=== PATIENT | female | born 1935 | race Caucasian/White ===

== ENCOUNTER 2017-05-25 13:41 | Observation (INO) | payer OTHER, MEDICARE ==
[~2017-05-25] VITALS: Ht 152.4 cm; Wt 47.6 kg
--- NOTE | 2017-05-25 16:10 | ED GENERAL ADULT ---
History of Present Illness General Chief Complaint: General Adult Stated Complaint: SWOLLEN LEGS, PAINFUL URINATION Source: patient, family (DAUGHTER ) Exam Limitations: no limitations Vital Signs & Intake/Output Vital Signs & Intake/Output Vital Signs Date Time Temp Pulse Resp B/P B/P Pulse O2 O2 Flow FiO2 Mean Ox Delivery Rate 05/26 1455 97.0 86 18 139/81 96 Room Air Room Air 05/26 1100 98.2 76 18 160/82 98 Room Air 05/26 0911 98.6 80 18 151/69 04/ 0835 98.6 80 18 151/69 98 Room Air 05/26 0644 98.1 78 20 156/67 98 Room Air 05/26 0144 98.0 77 20 126/57 96 Room Air ED Intake and Output 05/26 0000 05/25 1200 Intake Total Output Total 550 Balance -550 Output, Urine 550 Patient 105 lb Weight Weight Reported by Patient Measurement Method Allergies Coded Allergies: acetaminophen (From PERCOCET) (FEELS FUNNY - PER PT IS UNSURE ABOUT APAP ) adhesive (SKIN RASH 05/25/17) oxycodone (From PERCOCET) (FEELS FUNNY 05/25/17) Triage Note: PT TO ED WITH C/O BURNING WITH URINATION, AND BILATERAL SWOLLEN LEGS "I DIDN'T TAKE MY LASIX FOR A COUPLE OF DAYS". PER DAUGHTER "I HAD HER TAKE THE LASIX THIS MORNING". Triage Nurses Notes Reviewed? yes Onset: Abrupt Duration: day(s): (3-4), constant, continues in ED, getting worse Timing: single episode today Injury Environment: home Severity: mild, moderate No Modifying Factors: none LMP (ages 10-50): post menopausal : No Patient currently breastfeeds: No HPI: 81-year-old female past medical history of hypertension, hyperlipidemia, hypothyroidism presents for evaluation of frequency urgency, dysuria and lower extremity edema. Patient reports that the urinary symptoms started 3 or 4 days ago and been getting worse. She states that she's been having difficulty getting to the bathroom in time. She states she's had multiple times where she has urinated in her pants her on the floor because of this. She states that it cano when she peas. Patient reports that because of the urinary symptoms she stopped taking her Lasix as it was making things worse this subsequent may caused lower extremity edema. Daughter reports that when she came to see her today she noted the edema and had her take 40 mg of Lasix today. Patient has no documented history of CHF. She denies any chest pain shortness of breath abdominal pain or back pain. She does note some subjective signs of fever. No nausea vomiting or diarrhea. Mental status is at baseline according to the daughter who is at bedside. (Ryan Reyez) Reconcile Medications Cholecalciferol (Vitamin D3) (Vitamin D) (Unknown Strength) TABLET (Unknown Dose) PO DAILY SUPPLEMENT (Reported) Citalopram Hydrobromide (Citalopram HBr) 20 MG TABLET 1 TAB PO DAILY MENTAL HEALTH (Reported) Furosemide 20 MG TABLET 1 TAB PO DAILY DIURETIC (Reported) Levothyroxine Sodium (Unknown Strength) TABLET (Unknown Dose) PO DAILY THYROID (Reported) Lisinopril 5 MG TABLET 1 TAB PO DAILY BP (Reported) Lorazepam 0.5 MG TABLET 1 TAB PO BIDP PRN ANXIETY (Reported) Meclizine HCl 25 MG TABLET 1 TAB PO DAILY VERTIGO (Reported) [Rolling walker] gait instability Simvastatin (Simvastatin*) 20 MG TABLET 1 TAB PO QPM CHOLESTEROL (Reported) Sulfamethoxazole/Trimethoprim (Bactrim Ds Tablet) 800 MG-160 MG TABLET 1 TAB PO BID uti (Arnold Ulrich MD) Past History Travel History Traveled to [place] past 21 day No Medical History Any Pertinent Medical History? see below for history Neurological: NONE EENT: NONE Cardiovascular: hypertension, hyperlipidemia Respiratory: NONE Gastrointestinal: NONE Hepatic: NONE Renal: NONE Musculoskeletal: NONE Psychiatric: NONE Endocrine: hypothyroidism Blood Disorders: NONE Cancer(s): NONE Influenza Vaccine: 12/25/12 Surgical History Surgical History: non-contributory Psychosocial History Services at Home None What is your primary language Mohawk Tobacco Use: Never used ETOH Use: denies use Illicit Drug Use: denies illicit drug use Family History Family History, If Any: SISTER MOTHER Relation not specified for: Cerebral hemorrhage FH: CABG (coronary artery bypass surgery) Hx Contributory? No (Ryan Reyez) Review of Systems Review of Systems Constitutional: Reports: no symptoms. EENTM: Reports: no symptoms. Respiratory: Reports: no symptoms. Cardiovascular: Reports: peripheral edema. GI: Reports: no symptoms. Genitourinary: Reports: see HPI, dysuria, frequency, urgency. Musculoskeletal: Reports: no symptoms. Skin: Reports: no symptoms. Neurological/Psychological: Reports: no symptoms. Hematologic/Endocrine: Reports: no symptoms. Immunologic/Allergic: Reports: no symptoms. All Other Systems: Reviewed and Negative (Ryan Reyez) Physical Exam Physical Exam General Appearance: well developed/nourished, no apparent distress, alert, awake , thin Head: atraumatic, normal appearance Eyes: Bilateral: normal appearance, PERRL, EOMI. Ears, Nose, Throat: normal pharynx, normal ENT inspection, hearing grossly normal Neck: normal inspection, supple, full range of motion Respiratory: normal breath sounds, chest non-tender, no respiratory distress, lungs clear Cardiovascular: regular rate/rhythm, normal peripheral pulses Peripheral Pulses: 2+ radial (R), 2+ radial (L) Gastrointestinal: soft, non-tender Back: normal inspection, normal range of motion, NO CVAT Extremities: normal range of motion, THERE IS BILATERAL 1+ LOWER EXTREMITY EDEMA. THE RIGHT APPEARS SLIGHTLY WORSE THAN THE LEFT NO ERYTHEMA OR DISCHARGE. pATIENT IS MOVING ALL EXTREMITIES EQUALLY Neurologic/Psych: no motor/sensory deficits, awake, alert, oriented x 3 Skin: intact, normal color, warm/dry Core Measures ACS in differential dx? No CVA/TIA Diagnosis: No Sepsis Present: No Sepsis Focused Exam Completed? No (Ryan Reyez) Progress Differential Diagnoses I considered the following diagnoses in my evaluation of the patient: [UTI, pyelonephritis, kidney stone, CHF exacerbation, DVT, dependent edema, sepsis, CAUDA EQUINA] Plan of Care: Orders Procedure Date/time Status Discharge Patient 05/26 1420 Active Theraputic Activities 15 Min 05/26 UNK Complete Gait Training, 15 Min 05/26 UNK Complete PT EVAL LOW COMPLEX 20 MIN 05/26 UNK Complete Patient seen and evaluated. She is reporting multiple urinary symptoms over the past several days. This caused her to stop taking her Lasix which caused her legs to swell. She currently is afebrile vital signs are stable she appears nontoxic. We'll check basic labs including urinalysis chest x-ray EKG. Patient received 40 mg of Lasix by mouth today before arrival. All blood work is within normal limits. Urine is showing some signs of infection culture ordered. No white count negative lactic acid. Chest x-ray does not show any signs pulmonary edema patient does not appear to be in CHF. Suspect likely etiology was patient has a UTI and stopped taking her Lasix due to increasing urinary symptoms which caused the lower extremity edema. Patient currently is having difficultLY ambulating. Patient is a fall risk. Patient will be held over in the emergency department for physical therapy in case management evaluation in the morning. We'll also check a lower shotty ultrasound in the morning. Additionally patient will receive IV ceftriaxone and a dose of [address] scan of the lumbar spine was obtained to assess for possible spinal cord injury causing the urinary incontinence. Patient remained emergency department observation. Case discussed with Dr. Lancaster he agrees. pt signed out to dr aguirre pending us and pt/case management in the am. Diagnostic Imaging: Viewed by Me: Radiology Read, CT Scan. Discussed w/RAD: Radiology Read, CT Scan. Radiology Impression: PATIENT: NAKIA SCHAEFFER PRESENT AGE: 81 PATIENT ACCOUNT NO: [id number] : 33 LOCATION: [facility] ORDERING PHYSICIAN: Jose Miguel Lancaster DO SERVICE DATE: 05/25/17 EXAM TYPE: CAT - CT LUMB SPINE WO IV CONTRAST EXAMINATION: CT LUMBAR SPINE WITHOUT CONTRAST CLINICAL INFORMATION: 81-year-old woman with urinary incontinence and back pain. COMPARISON: None TECHNIQUE: Helical non-contrast CT images were obtained through the lumbar spine and 1.25 and 2.5 mm axial reconstructions were reviewed along with sagittal and coronal MPRs. DLP: 147 mGy-cm FINDINGS: On sagittal reconstructions, there is slight anterolisthesis of L4 on L5 and of L5 on S1. There is also slight retrolisthesis of T12 on L1. Vertebral bodies are normal in height. Degenerative endplate remodeling with subchondral sclerosis and mild loss of normal disc space is noted at T11-T12, T12-L1, and L5-S1. Facet arthrosis is worse in the lower lumbar spine. Extensive atherosclerotic plaquing is seen throughout the abdominal aorta. T12-L1: Disc osteophyte complex slightly effaces the ventral CSF space. The canal remains patent. There is mild to moderate narrowing of the right neural foramen. L1-L2, L2-L3: The disc contours are normal, and the canal and foramina remain nonstenotic. L3-L4: A disc bulge is eccentric to the right and there is mild to moderate facet arthrosis. In conjunction with ligamentous hypertrophy, findings lead to mild canal stenosis and mild narrowing of the neural foramina, right greater than left. L4-L5: The disc is uncovered with a superimposed diffuse bulge. There is moderate to severe facet arthrosis. The canal remains patent. There is mild narrowing of the right neural foramen and lateral recess. L5-S1: The disc is uncovered with a superimposed diffuse bulge. There is marked facet arthrosis. The canal remains patent. There is moderate narrowing of the neural foramina. IMPRESSION: Moderate multilevel lumbar spondylosis. No severe canal or foraminal stenosis is noted at any level. DICTATED BY: Rita Pool MD DATE/TIME DICTATED:05/25/171932 DENTAL ASSISTING INSTRUCTOR:TOMMY DATE/TIME TRANSCRIBED:05/25/171932 CONFIDENTIAL, DO NOT COPY WITHOUT APPROPRIATE AUTHORIZATION. <Electronically signed in Other Vendor System> SIGNED BY: Rita Pool MD 05/25/171940 CXR Impression: PATIENT: NAKIA SCHAEFFER PRESENT AGE: 81 PATIENT ACCOUNT NO: [id number] : 33 LOCATION: [facility] ORDERING PHYSICIAN: Ryna GERMAIN SERVICE DATE: 05/25/17 EXAM TYPE: RAD - XRY-PORTABLE CHEST XRAY EXAMINATION: XR CHEST PORTABLE CLINICAL INFORMATION: Pneumonia, congestive heart failure. COMPARISON: CT chest 09/02/2011. TECHNIQUE: Portable frontal view of the chest was obtained. FINDINGS: Rotated positioning. Mild cardiomegaly. Calcification of the aortic arch. There is mild prominence of the interstitium. Mild perihilar bronchial wall thickening. No focal consolidation, effusion, edema or pneumothorax. No acute osseous abnormality. IMPRESSION: Nonspecific mild perihilar bronchial wall thickening, which can be seen with reactive changes, bronchitis. No acute findings otherwise. DICTATED BY: Edmond Arevalo MD DATE/TIME DICTATED:05/25/171729 DENTAL ASSISTING INSTRUCTOR:TOMMY DATE/ TIME TRANSCRIBED:05/25/171729 CONFIDENTIAL, DO NOT COPY WITHOUT APPROPRIATE AUTHORIZATION. <Electronically signed in Other Vendor System> Initial ED EKG: NORMAL SINUS RHYTHM, BORDERLINE RIGHT AXIS DEVIATION, ABNORMAL t WAVES INFERIOR LEADS Prior EKG: unchanged Hand-Off Endorsed To: Derek SHELLEY,Manish Stewart Endorsed Time: 52 Pending: consult, ultrasound (Ryan Reyez) Diagnostic Imaging: Viewed by Me: Ultrasound. Discussed w/RAD: Ultrasound. Radiology Impression: There is no sonographic evidence of deep venous thrombosis involving the lower extremities. (Arnold Ulrich MD) Departure Departure Condition: Stable Referrals: Michell Snyder MD (PCP/Family) Departure Forms: Customer Survey General Discharge Information (Ryan Reyez) Departure Clinical Impression Primary Impression: UTI (urinary tract infection) Qualifiers: Urinary tract infection type: acute cystitis Hematuria presence: without hematuria Qualified Code: N30.00 - Acute cystitis without hematuria Secondary Impressions: Gait instability, Lower extremity edema (Jose Miguel Lancaster DO) Departure Disposition: HOME OR SELF CARE Prescriptions: Current Visit Scripts [Rolling walker] #1 Sulfamethoxazole/Trimethoprim (Bactrim Ds Tablet) 1 TAB PO BID #14 TAB (Arnold Ulrich MD) Critical Care Note Critical Care Note Critical Care Time: non-applicable (Ryan Reyez) ED Attending Observation Initial Observation Note: I have seen and personally examined NAKIA SCHAEFFER on 05/25/17 at 1619. I agree with the current emergency department documentation. The disposition (admission or discharge) is uncertain at this time, she needs a period of observation for the following reason(s): The ED Nurse caring for this patient has been personally informed as to what the patient is being observed for. (Ryan Reyez) Initial Observation Note: I have seen and personally examined NAKIA SCHAEFFER on 05/25/17 at 1843. I agree with the current emergency department documentation. The disposition (admission or discharge) is uncertain at this time, she needs a period of observation for the following reason(s): [The patient is in need of observation for PT consultation, lower extremity Doppler, case management] The ED Nurse caring for this patient has been personally informed as to what the patient is being observed for. The patient will be signed out to Dr. Aguirre at 7 PM (Jose Miguel Lancaster DO) Observation Re-Evaluation: I have reevaluated NAKIA SCHAEFFER on 05/26/17 at 0328. The physical findings that support the continued need to observe this patient include ... resting comfortably... pt to be re-evaluated to consider dispo. pt signed out to dr. ulrich (05.26.17), 7am. (Manish Aguirre MD) Observation Discharge: I have reevaluated NAKIA SCHAEFFER on 05/26/17 at 1700. The patient is: (x): Stable for discharge (): To be admitted to Nursing Floor (): To be placed in Observation on Nursing Floor (): For transfer to other facility The patient was being observed for dependent edema with gait instability and UTI As a result of that observation, I have determined safe for discharge. (Arnold Ulrich MD) The patient will be signed out to Dr. Aguirre at 7 PM (Jose Miguel Lancaster DO) Observation Re-Evaluation: I have reevaluated NAKIA SCHAEFFER on 05/26/17 at 0328. The physical findings that support the continued need to observe this patient include ... resting comfortably... pt to be re-evaluated to consider dispo. pt signed out to dr. ulrich (05.26.17), 7am. (Manish Aguirre MD) Observation Discharge: I have reevaluated NAKIA SCHAEFFER on 05/26/17 at 1700. The patient is: (x): Stable for discharge (): To be admitted to Nursing Floor (): To be placed in Observation on Nursing Floor (): For transfer to other facility The patient was being observed for dependent edema with gait instability and UTI As a result of that observation, I have determined safe for discharge. (Arnold Ulrich MD) (Ryan Reyez) ED Attending Observation Initial Observation Note: I have seen and personally examined NAKIA SCHAEFFER on 05/25/17 at 1619. I agree with the current emergency department documentation. The disposition (admission or discharge) is uncertain at this time, she needs a period of observation for the following reason(s): The ED Nurse caring for this patient has been personally informed as to what the patient is being observed for. (Ryan Reyez) Initial Observation Note: I have seen and personally examined NAKIA SCHAEFFER on 05/25/17 at 1843. I agree with the current emergency department documentation. The disposition (admission or discharge) is uncertain at this time, she needs a period of observation for the following reason(s): [The patient is in need of observation for PT consultation, lower extremity Doppler, case management] The ED Nurse caring for this patient has been personally informed as to what the patient is being observed for. The patient will be signed out to Dr. Aguirre at 7 PM (Jose Miguel Lancaster DO) Observation Re-Evaluation: I have reevaluated NAKIA SCHAEFFER on 05/26/17 at 0328. The physical findings that support the continued need to observe this patient include ... resting comfortably... pt to be re-evaluated to consider dispo. pt signed out to dr. ulrich (4.04.13), 7am. (Derek SHELLEY,Manish Stewart)
[2017-05-25 16:15] LABS: ABSOLUTE BASOPHIL COUNT 0.1 /CUMM (0.0-0.2); ABSOLUTE EOSINOPHIL COUNT 0.1 /CUMM (0.0-0.7); ABSOLUTE GRANULOCYTE CT 3.7 /CUMM (1.4-6.5); ABSOLUTE LYMPH COUNT 1.6 /CUMM (1.2-3.4); ABSOLUTE MONOCYTE COUNT 0.7 /CUMM (0.10-0.60); BASOPHIL % 1.2 % (0.0-2.0); EOSINOPHIL % 1.3 % (0-5); HEMATOCRIT 36.5 % (37-47); MEAN CORPUSCULAR HGB 28.2 PG (27.0-31.0); MEAN CORPUSCULAR HGB CONC 32.1 G/DL (33.0-37.0); MEAN CORPUSCULAR VOLUME 87.7 FL (81.0-99.0); MEAN PLATELET VOLUME 8.4 FL (7.4-10.4); PLATELET COUNT 315 /CUMM (130-400); RBC DISTRIBUTION WIDTH 15.3 % (11.5-14.5); RED BLOOD CELL CT 4.17 /CUMM (4.20-5.40); WHITE BLOOD CELL COUNT 6.1 /CUMM (4.8-10.8)
[2017-05-25] MEDS ORDERED: FUROSEMIDE20 M1 PO (16:18)
[2017-05-25] MEDS ORDERED: MECLIZINE HCL25 MG PO (16:19)
[2017-05-25] MEDS ORDERED: LORAZEPAM0.5 M1 PO (16:19)
[2017-05-25] MEDS ORDERED: LISINOPRIL5 M1 PO (16:19)
[2017-05-25] MEDS ORDERED: LEVOTHYROXINE75 MCG PO (16:19)
[2017-05-25] MEDS ORDERED: VITAMIN D2000 UNI1 PO (16:20)
[2017-05-25] MEDS ORDERED: CITALOPRAM HBR20 MG PO (16:20)
[2017-05-25] MEDS ORDERED: SIMVASTATIN20 M2 PO (16:20)
--- NOTE | 2017-05-25 17:57 | RADIOLOGY REPORT ---
EXAMINATION: XR CHEST PORTABLE CLINICAL INFORMATION: Pneumonia, congestive heart failure. COMPARISON: CT chest 09/02/2011. TECHNIQUE: Portable frontal view of the chest was obtained. FINDINGS: Rotated positioning. Mild cardiomegaly. Calcification of the aortic arch. There is mild prominence of the interstitium. Mild perihilar bronchial wall thickening. No focal consolidation, effusion, edema or pneumothorax. No acute osseous abnormality. IMPRESSION: Nonspecific mild perihilar bronchial wall thickening, which can be seen with reactive changes, bronchitis. No acute findings otherwise.
--- NOTE | 2017-05-25 19:41 | CT SCAN REPORT ---
EXAMINATION: CT LUMBAR SPINE WITHOUT CONTRAST CLINICAL INFORMATION: 81-year-old woman with urinary incontinence and back pain. COMPARISON: None TECHNIQUE: Helical non-contrast CT images were obtained through the lumbar spine and 1.25 and 2.5 mm axial reconstructions were reviewed along with sagittal and coronal MPRs. DLP: 147 mGy-cm FINDINGS: On sagittal reconstructions, there is slight anterolisthesis of L4 on L5 and of L5 on S1. There is also slight retrolisthesis of T12 on L1. Vertebral bodies are normal in height. Degenerative endplate remodeling with subchondral sclerosis and mild loss of normal disc space is noted at T11-T12, T12-L1, and L5-S1. Facet arthrosis is worse in the lower lumbar spine. Extensive atherosclerotic plaquing is seen throughout the abdominal aorta. T12-L1: Disc osteophyte complex slightly effaces the ventral CSF space. The canal remains patent. There is mild to moderate narrowing of the right neural foramen. L1-L2, L2-L3: The disc contours are normal, and the canal and foramina remain nonstenotic. L3-L4: A disc bulge is eccentric to the right and there is mild to moderate facet arthrosis. In conjunction with ligamentous hypertrophy, findings lead to mild canal stenosis and mild narrowing of the neural foramina, right greater than left. L4-L5: The disc is uncovered with a superimposed diffuse bulge. There is moderate to severe facet arthrosis. The canal remains patent. There is mild narrowing of the right neural foramen and lateral recess. L5-S1: The disc is uncovered with a superimposed diffuse bulge. There is marked facet arthrosis. The canal remains patent. There is moderate narrowing of the neural foramina. IMPRESSION: Moderate multilevel lumbar spondylosis. No severe canal or foraminal stenosis is noted at any level.
[2017-05-26] MEDS ORDERED: Rolling walker (08:27)
--- NOTE | 2017-05-26 10:18 | ULTRASOUND REPORT ---
EXAMINATION: US TRIPLEX OF LOWER EXTREMITIES, BILATERAL CLINICAL INFORMATION: Evaluate for deep vein thrombosis COMPARISON: None TECHNIQUE: Color-flow triplex imaging with spectral analysis and compression Doppler were performed on the lower extremities. FINDINGS: Respiratory variation, normal compression and augmented flow are noted throughout the lower extremities. The visualized common femoral vein, superficial femoral vein, profunda femoral vein, popliteal vein and midcalf peroneal and posterior tibial venous segments show no evidence of deep venous thrombosis. There is no Hanson's cyst. IMPRESSION: There is no sonographic evidence of deep venous thrombosis involving the lower extremities.
[2017-05-26] MEDS ORDERED: BACTRIM DS TAB1 EACH PO (12:55)
[2017-05-26 14:55] VITALS: BP 139/81
== END 2017-05-26 15:13 ==
LOC: ERH 13:41 → ERHI 18:41
PROVIDERS: Physician Assistant Medical
DX: N30.00 Acute cystitis without hematuria (principal); N95.9 Unspecified menopausal and perimenopausal disorder; I10 Essential (primary) hypertension; E78.5 Hyperlipidemia, unspecified; E03.9 Hypothyroidism, unspecified; R60.0 Localized edema; R26.9 Unspecified abnormalities of gait and mobility
CPT/HCPCS: 6090; 71045; 81001; 87086; 93005; 93010; 93970; 96374; 96375; 97116-GP; 97161-GP; 97530-GP; G0378; G8978-GP; G8979-GP; J0696; J1940

== ENCOUNTER 2017-06-27 12:01 | Inpatient (IN) | payer OTHER, MEDICARE ==
[~2017-06-27] VITALS: Ht 147.3 cm; Wt 39.9 kg
[~2017-06-27 12:01] MED LIST: BACTRIM DS TAB1 EACH PO; CITALOPRAM HBR20 MG PO; FUROSEMIDE20 M1 PO; LEVOXYL75 MCG PO; LISINOPRIL5 M1 PO; LORAZEPAM0.5 M1 PO; MECLIZINE HCL25 MG PO; Rolling walker; SIMVASTATIN20 M2 PO; VITAMIN D2000 UNI1 PO
--- NOTE | 2017-06-27 12:27 | ED GI/GU/ABDOMINAL COMPLAINT ---
History of Present Illness General Chief Complaint: General Adult Stated Complaint: ?UTI Source: patient, family, old records Exam Limitations: no limitations Allergies Coded Allergies: acetaminophen (From PERCOCET) (FEELS FUNNY - PER PT IS UNSURE ABOUT APAP ) adhesive (SKIN RASH 05/25/17) oxycodone (From PERCOCET) (FEELS FUNNY 05/25/17) Reconcile Medications Cholecalciferol (Vitamin D3) (Vitamin D) (Unknown Strength) TABLET (Unknown Dose) PO DAILY SUPPLEMENT (Reported) Citalopram Hydrobromide (Citalopram HBr) 20 MG TABLET 1 TAB PO DAILY MENTAL HEALTH (Reported) Furosemide 20 MG TABLET 1 TAB PO DAILY DIURETIC (Reported) Levothyroxine Sodium (Unknown Strength) TABLET (Unknown Dose) PO DAILY THYROID (Reported) Lisinopril 5 MG TABLET 1 TAB PO DAILY BP (Reported) Lorazepam 0.5 MG TABLET 1 TAB PO BIDP PRN ANXIETY (Reported) Meclizine HCl 25 MG TABLET 1 TAB PO DAILY VERTIGO (Reported) [Rolling walker] gait instability Simvastatin (Simvastatin*) 20 MG TABLET 1 TAB PO QPM CHOLESTEROL (Reported) Sulfamethoxazole/Trimethoprim (Bactrim Ds Tablet) 800 MG-160 MG TABLET 1 TAB PO BID uti Triage Note: PT BIBA FROM HOME WITH C/O POSSIBLE UTI. PT STATES SHE WAS IN ED AROUND [facility] AND WAS DX WITH UTI AND DC AFTER 1 DAY WITH ABX FOR HOME. APPROXIMATELY 1 WEEK AGO, PT HAD LAB WORK DONE AND WAS TOLD SHE HAS NO UTI. HOWEVER, PT C/O CLOUDY URINE. PT'S AIDE STATES THE URINE IS ALSO STRONG-SMELLING, WHICH PT CANNOT VERIFY. PT ARRIVES A&O, EDEMA TO BLE WHICH SHE SAYS IS NEW, BUT SHE TAKES LASIX. PT ENDORSES WEAKNESS "STARTING YESTERDAY", BUT ALSO STATES SHE HAS BEEN WEAK AND USING A CANE SINCE HER HOSPITALIZATION IN MAY Triage Nurses Notes Reviewed? yes ? N Is pt currently ? No Onset: Gradual Duration: week(s): Timing: recent history Quality/Severity: moderate HPI: 81YO FEMALE with hx hypertension, hyperlipidemia, hypothyroidism BIBA to ED for possible UTI. Patient states that she has had increased urinary frequency and intermittent dysuria since around [facility] time. Patient was previously diagnosed with the UTI, completed antibiotics have her symptoms persisted. Patient also reports pedal edema, recent increasing in her swelling bilaterally. This swelling affects the patient's walking at times. The patient's PCP has prescribed lasix, they recommended she increase her dose however this also affects her urinary frequency. Patient is currently going through work up with her CLINICAL PHARMACY MANAGER for her and prolapse. Daughter is very concerned because the patient lives at home alone, has nursing and physical therapy present for/7 days per week for a few hours. Patient has increasing weakness and daughter is worried about her following. Patient currently uses a cane for ambulation of her daughter has noticed that her gait has changed, she now shuffles more when she walks. Daughter states that patient is unable to get dressed on arrival at times and requires assistance due to her weakness. Patient denies dyspnea, abdominal pain, vomiting, fevers, chills. (Kate GERMAIN,Alysha Mcallister) Vital Signs & Intake/Output Vital Signs & Intake/Output Vital Signs Date Time Temp Pulse Resp B/P B/P Pulse O2 O2 Flow FiO2 Mean Ox Delivery Rate 06/27 1730 98.8 84 18 121/59 97 Room Air Room Air 05/ 1503 98.8 82 18 159/70 100 Room Air Room Air 05/ 1445 98.4 78 16 136/71 97 Room Air 05/04 1217 Room Air 05/04 1207 98.2 82 16 154/68 96 Room Air (Christy SHELLEY,Jose Miguel Savage) Past History Medical History Any Pertinent Medical History? see below for history Neurological: NONE EENT: NONE Cardiovascular: hypertension, hyperlipidemia Respiratory: NONE Gastrointestinal: NONE Hepatic: NONE Renal: NONE Musculoskeletal: NONE Psychiatric: NONE Endocrine: hypothyroidism Blood Disorders: NONE Cancer(s): NONE Surgical History Surgical History: non-contributory Psychosocial History Services at Home None What is your primary language Wallisian Family History Family History, If Any: SISTER MOTHER Relation not specified for: Cerebral hemorrhage FH: CABG (coronary artery bypass surgery) Hx Contributory? No (Alysha Linares) Review of Systems Review of Systems Constitutional: Reports: see HPI. EENTM: Reports: no symptoms. Respiratory: Reports: no symptoms. Cardiovascular: Reports: see HPI. GI: Reports: no symptoms. Genitourinary: Reports: see HPI. Musculoskeletal: Reports: see HPI. Skin: Reports: no symptoms. Neurological/Psychological: Reports: no symptoms. Hematologic/Endocrine: Reports: no symptoms. Immunologic/Allergic: Reports: no symptoms. All Other Systems: Reviewed and Negative (Kate GERMAIN,Alyhsa Mcallister) Physical Exam Physical Exam General Appearance: well developed/nourished, no apparent distress, alert, awake Head: atraumatic, normal appearance Eyes: Bilateral: normal appearance. Ears, Nose, Throat, Mouth: hearing grossly normal Neck: normal inspection, supple, full range of motion Respiratory: normal breath sounds, no respiratory distress, lungs clear Cardiovascular: regular rate/rhythm Gastrointestinal: normal bowel sounds, soft, non-tender, no organomegaly Back: normal inspection, normal range of motion Extremities: 1+ pitting edema bilaterally Neurologic/Psych: awake, alert, oriented x 3 Skin: intact, normal color, warm/dry Core Measures ACS in differential dx? No Sepsis Present: No Sepsis Focused Exam Completed? No (Kate GERMAIN,Alysha Mcallister) Progress Differential Diagnosis: UTI/pyelo, CHF, dependent edema, gait instability, electrolyte abnormality, anemia Diagnostic Imaging: Viewed by Me: Radiology Read. Discussed w/RAD: Radiology Read. Radiology Impression: PATIENT: NAKIA SCHAEFFER PRESENT AGE: 81 PATIENT ACCOUNT NO: [id number] : 33 LOCATION: [facility] ORDERING PHYSICIAN: Alysha GERMAIN SERVICE DATE: 06/27/17 EXAM TYPE: RAD - XRY-CHEST XRAY, TWO VIEWS EXAMINATION: XR CHEST CLINICAL INFORMATION : New pedal edema. COMPARISON: Chest radiograph 05/25/2017. TECHNIQUE: 3 views of the chest were obtained. FINDINGS: The lungs are clear without consolidation, edema, or effusion. There is no pneumothorax. The cardiomediastinal silhouette appears normal. The thoracic aorta is calcified. There are multilevel degenerative changes in the thoracic and lumbar spine. IMPRESSION: No active disease in the chest. DICTATED BY: Tayo Mcneil MD DATE/TIME DICTATED:1304 FELL CUTTER:TOMMY DATE/TIME TRANSCRIBED:06/27/171304 CONFIDENTIAL, DO NOT COPY WITHOUT APPROPRIATE AUTHORIZATION. <Electronically signed in Other Vendor System> SIGNED BY: Tayo Mcneil MD 06/27/17 1312 Initial ED EKG: sinus rhythm @81bpm, nonspecific ST changes Prior EKG: unchanged (05/25/17) (Kate GERMAIN,Alysha Mcallister) Plan of Care: Orders Procedure Date/time Status Regular Diet 06/28 B Active Regular Diet 06/27 D Complete Pathway - chart 06/27 174 Active House Staff 06/27 1744 Active Patient Data 06/27 174 Active Lab Add-on Test 06/27 174 Active Patient Data 06/27 1730 Active Admit to inpatient 06/27 1710 Active VIT D 25 HYDROXY 06/27 1340 Active TSH REFLEX 06/27 1340 Active TROPONIN LEVEL 06/27 1340 Active FOLIC ACID 06/27 1340 Active VITAMIN B12 06/27 1340 Active Straight Cath 06/27 1301 Active EKG 06/27 1301 Active CULTURE,URINE 06/27 1223 Active URINALYSIS 06/27 1223 Complete COMPREHENSIVE METABOLIC PANEL 06/27 1223 Active CBC WITHOUT DIFFERENTIAL 06/27 1223 Complete B-TYPE NATRIURETIC PEP (BNP) 06/27 1223 Active VTE Mechanical Prophylaxis 06/27 UNK Active Activity/Ambulation 06/27 UNK Active Current Medications Sig/Heather Start time Last Medication Dose Stop Time Status Admin Atorvastatin Calcium 10 MG 1700 06/28 1700 UNVr (Lipitor) Cholecalciferol 1,000 IU DAILY 06/28 0900 UNVr (Vitamin D) Citalopram 20 MG DAILY 06/28 0900 UNVr Hydrobromide (Celexa) Enoxaparin Sodium 40 MG DAILY 06/28 0900 UNVr (Lovenox) Furosemide 20 MG DAILY 06/28 0900 UNVr (Lasix) Lisinopril 5 MG DAILY 06/28 0900 UNVr (Prinivil) Acetaminophen 650 MG Q6P PRN 06/27 1744 UNVr (Tylenol) Ibuprofen 600 MG Q6P PRN 06/27 174 UNVr (Motrin) Lorazepam 0.5 MG .[BIDP] PRN 06/27 174 UNVr (Ativan) 07/05 1743 Oxycodone/ 2 TAB Q6P PRN 06/27 174 UNVr Acetaminophen (Percocet) Laboratory Tests 06/27/17 1445: Urinalysis MOD H, Urine Color YEL, Urine Clarity HAZY H, Urine pH 7.5, Ur Specific [place] 1.010, Urine Protein NEG, Urine Ketones NEG, Urine Nitrite NEG, Urine Bilirubin NEG, Urine Urobilinogen 0.2, Ur Leukocyte Esterase NEG, Ur Microscopic SEDIMENT EXAMINED, Urine RBC RARE, Ur Epithelial Cells RARE, Urine Bacteria RARE H, Urine Mucus FEW, Urine Hemoglobin NEG, Urine Glucose NEG 06/27/17 1340: Anion Gap 9, Estimated GFR 53 L, BUN/Creatinine Ratio 26.0 H, Glucose 91, Calcium 9.8, Total Bilirubin 0.5, AST 27, ALT 23, Alkaline Phosphatase 67, Troponin I < 0.01, Kcy-T-Ltptouzjinj Pept 58.0, Total Protein 6.6, Albumin 3.9, Globulin 2.7, Albumin/Globulin Ratio 1.4, Vitamin B12 Pending, 25-OH Vitamin D Total Pending, Folate Pending, TSH &T3 &Free T4 Intrp Pending, CBC w Diff NO MAN DIFF REQ, RBC 3.89 L, MCV 85.8, MCH 29.0, MCHC 33.9, RDW 14.9 H, MPV 8.2, Gran % 65.4, Lymphocytes % 24.2, Monocytes % 7.7, Eosinophils % 1.7, Basophils % 1.0, Absolute Granulocytes 3.8, Absolute Lymphocytes 1.4, Absolute Monocytes 0.4, Absolute Eosinophils 0.1, Absolute Basophils 0.1 06/27/17 1301: Troponin I Cancelled Microbiology 06/27 1445 URINE ROUT: Urine Culture - RECD Patients labs are stable, no UTI. CXR is WNL. 3:35 PM - patient was ambulated by CLEMENTE Juares. Patient displayed shuffling gait, weakness, could not get out of bed without assistance, ambulatory using walker with distance by [facility]. She could not return to bed without assistance, required to be lifted and placed in bed. Discussed with case mgmt, patient requires 3 midnight stay prior to rehab placement. Spoke with hospitalist, Dr. Soni regarding this patient's general medicine admission. (Kate GERMAIN,Alysha Mcallister) (Christy SHELLEY,Jose Miguel Savage) Departure Departure Disposition: STILL A PATIENT Condition: Stable Clinical Impression Primary Impression: Weakness Secondary Impressions: Gait instability, Pedal edema Referrals: Michell Snyder MD (PCP/Family) Departure Forms: Customer Survey General Discharge Information Admission Note Spoke With: Toni Soni MD Documentation of Exam: Documentation of any treatments & extenuating circumstances including Concerns Regarding Discharge (functional status, medication knowledge or non-compliance, living conditions, etc.) that warrant an admission rather than observation: [ Patient has weakness and gait instability, she is up below her baseline, unable to perform functional ADLs requiring case management consult, physical therapy consult, short-term rehabilitation with 3 midnight stay prior to rehabilitation placement.] (Kate GERMAIN,Alysha Mcallister) PA/GRAINING OPERATOR Co-Sign Statement Statement: ED Attending supervision documentation- [X] I saw and evaluated the patient. I have also reviewed all the pertinent lab results and diagnostic results. I agree with the findings and the plan of care as documented in the PA's/GRAINING OPERATOR's documentation. Patient presents for evaluation of a possible urinary tract infection similar to the prior UTI resulting in her hospitalization. Physical examination reveals a comfortable appearing woman in no acute respiratory distress. [] I have reviewed the ED Record and agree with the PA's/GRAINING OPERATOR's documentation. [] Additions or exceptions (if any) to the PAs/GRAINING OPERATOR's note and plan are summarized below: [] (Christy SHELLEY,Jose Miguel Savage)
--- NOTE | 2017-06-27 13:12 | RADIOLOGY REPORT ---
EXAMINATION: XR CHEST CLINICAL INFORMATION: New pedal edema. COMPARISON: Chest radiograph 05/25/2017. TECHNIQUE: 3 views of the chest were obtained. FINDINGS: The lungs are clear without consolidation, edema, or effusion. There is no pneumothorax. The cardiomediastinal silhouette appears normal. The thoracic aorta is calcified. There are multilevel degenerative changes in the thoracic and lumbar spine. IMPRESSION: No active disease in the chest.
[2017-06-27 13:49] LABS: ABSOLUTE BASOPHIL COUNT 0.1 /CUMM (0.0-0.2); ABSOLUTE EOSINOPHIL COUNT 0.1 /CUMM (0.0-0.7); ABSOLUTE GRANULOCYTE CT 3.8 /CUMM (1.4-6.5); ABSOLUTE LYMPH COUNT 1.4 /CUMM (1.2-3.4); ABSOLUTE MONOCYTE COUNT 0.4 /CUMM (0.10-0.60); EOSINOPHIL % 1.7 % (0-5); GRANULOCYTE % 65.4 % (42.2-75.2); HEMATOCRIT 33.4 % (37-47); MEAN CORPUSCULAR HGB CONC 33.9 G/DL (33.0-37.0); MEAN CORPUSCULAR VOLUME 85.8 FL (81.0-99.0); MEAN PLATELET VOLUME 8.2 FL (7.4-10.4); PLATELET COUNT 244 /CUMM (130-400); RBC DISTRIBUTION WIDTH 14.9 % (11.5-14.5); RED BLOOD CELL CT 3.89 /CUMM (4.20-5.40); WHITE BLOOD CELL COUNT 5.8 /CUMM (4.8-10.8)
--- NOTE | 2017-06-27 17:41 | History & Physical ---
Arie SHELLEY,Wilbur 06/27/17 8599: General Information and HPI MD Statement: I have seen and personally examined NAKIA SCHAEFFER and documented this H&P. The patient is a 81 year old F who presented with a patient stated chief complaint of [weakness]. Source of Information: patient, family Exam Limitations: no limitations History of Present Illness: This is a 81 yo female with PMH of hyperlipidemia, hypertension, anxiety, depression, hypothyroidism, who was sent in by her home nurse for increased weakness. Pt states that she has been progressively weak for past several months , but it seemed to get worse about one month ago. She came to at that time and was treated for UTI. Since then she has needed to ambulate with a cane. Over the past month she has even more weak, until today she could not lift herself out of her couch. She states that she woke up this AM and felt "off." She was unable to do her routine chores around the house. She had to crawl on hands and knees to get down from the couch to feed her dog. She endorses a subjective fever, but did not measure a temperature. She denies any nausea, vomiting, chest pain, palpitations, abdominal pain, dysuria, melena, hematochezia, or headache. She endorses fatigue, decreased appetite, worsening lower extremity edema, and worsening depression due to her progressive debilitation. No SI/HI. She has had similar complaint previously but weakness was attributed to her anxiety. She has home PT and nursing. Never smoker, no etoh or drugs. Uses a cane for ambulation. Allergies/Medications Allergies: Coded Allergies: acetaminophen (From PERCOCET) (FEELS FUNNY - PER PT IS UNSURE ABOUT APAP ) adhesive (SKIN RASH 05/25/17) oxycodone (From PERCOCET) (FEELS FUNNY 05/25/17) Home Med list Cholecalciferol (Vitamin D3) (Vitamin D) (Unknown Strength) TABLET (Unknown Dose) PO DAILY SUPPLEMENT (Reported) Citalopram Hydrobromide (Citalopram HBr) 20 MG TABLET 1 TAB PO DAILY MENTAL HEALTH (Reported) Furosemide 20 MG TABLET 1 TAB PO DAILY DIURETIC (Reported) Levothyroxine Sodium (Levoxyl) 75 MCG TABLET 1 TAB PO DAILY hypothyroid ( Reported) Lisinopril 5 MG TABLET 1 TAB PO DAILY BP (Reported) Lorazepam 0.5 MG TABLET 1 TAB PO BIDP PRN ANXIETY (Reported) Meclizine HCl 25 MG TABLET 1 TAB PO DAILY VERTIGO (Reported) [Rolling walker] gait instability Simvastatin (Simvastatin*) 20 MG TABLET 1 TAB PO QPM CHOLESTEROL (Reported) Sulfamethoxazole/Trimethoprim (Bactrim Ds Tablet) 800 MG-160 MG TABLET 1 TAB PO BID uti Compliance With Home Meds: GOOD Past History Travel History Traveled to [place] past 21 day No Medical History Neurological: NONE EENT: NONE Cardiovascular: hypertension, hyperlipidemia Respiratory: NONE Gastrointestinal: NONE Hepatic: NONE Renal: NONE Musculoskeletal: NONE Psychiatric: NONE Endocrine: hypothyroidism Blood Disorders: NONE Cancer(s): NONE Surgical History Surgical History: non-contributory Past Family/Social History Family History Relations & Conditions if any SISTER MOTHER Relation not specified for: Cerebral hemorrhage FH: CABG (coronary artery bypass surgery) Psychosocial History Services at Home: None ETOH Use: denies use Review of Systems Review of Systems Constitutional: Reports: see HPI. Exam & Diagnostic Data Last 24 Hrs of Vital Signs/I&O Vital Signs Date Time Temp Pulse Resp B/P B/P Pulse O2 O2 Flow FiO2 Mean Ox Delivery Rate 06/27 1730 98.8 84 18 121/59 97 Room Air Room Air / 1503 98.8 82 18 159/70 100 Room Air Room Air 05/ 1445 98.4 78 16 136/71 97 Room Air / 1217 Room Air / 1207 98.2 82 16 154/68 96 Room Air Intake & Output 06/27 1600 / 0800 05/ 0000 Intake Total Output Total Balance Patient 45.359 kg Weight Weight Reported by Patient Measurement Method Physical Exam General Appearance Alert, Oriented X3, Cooperative, No Acute Distress HEENT Atraumatic, PERRLA, EOMI, Mucous Membr. moist/pink Neck Supple Cardiovascular Normal S1, Normal S2, Upon auscultation pt has some intermittent dropped beats, but otherwise regular. She has a systoli murmur 2/6 at RUSB that radiates to carotids and she has a louder 3/6 murmur at apex that radiates to axilla. Lungs Normal Air Movement Abdomen Soft, No Tenderness Neurological Normal Speech, Sensation Intact, Cranial Nerves 3-12 NL Extremities 3+ EDEMA IN BILAT LE Assessment/Plan Assessment: This is an 81 yo female w/ PMH of hypothyroidism and anxiety who comes in for CC of progressive weakness and worsening lower extremity edema. Her BNP is 58 which suggests against heartfailure but given physical exam findings for cardiac murmurs there is possibility for valvular pathology leading to her presentation. In ED "Patient displayed shuffling gait, weakness, could not get out of bed without assistance, ambulatory using walker with distance by [facility]. She could not return to bed without assistance, required to be lifted and placed in bed." She is unsafe at home as she is unable to meet basic needs so will admit pt for routine work up of weakness. Pertinent labs: Vitals: 98.2, 82, 16, 154/68, 96. UA: Negative ketone, negative nitrite, negative leukocyte esterase, rare urine bacteria CBC: White count 5.8, hemoglobin 11.3, hematocrit 33.4, platelet 144 BEP: Sodium 139, potassium 4.4, chloride 100, bicarbonate 30, BUN 26, creatinine 1.0 Glucose 91 negative LFTs Negative troponin Chest x-ray shows clear lungs without consolidation, edema, or effusion. No pneumothorax. Aorta is calcified and multiple degenerative changes and thoracic lumbar spine are seen. PLAN Weakness: * Check B12, folate and thyroid function * Echocardiogram Anemia: Hb 11.3. Denies any bleeding. * Iron studies Hypothyroidism * Continue 75mcg levothyroxine Hypertension * Continue lisinopril 5 mg by mouth daily * Continue furosemide 20 mg daily Depression and anxiety: * Continue citalopram 20 mg daily * Continue lorazepam 0.5 mg by mouth daily Hyperlipidemia * Continue statin DNR/DNI REG DIET CHEM PPX As Ranked By This Provider Problem List: 1. Generalized weakness Core Measures/Misc (11/10) Acute Coronary Syndrome ACS Diagnosis: No Congestive Heart Failure Congestive Heart Failure Diagnosis No Cerebrovascular Accident CVA/TIA Diagnosis: No VTE (View Protocol) VTE Risk Factors Acute Medical Illness No Mechanical VTE Prophylaxis d/t N/A MechProphylax Ordered No VTE Pharm Prophylaxis d/t NA PharmProphylax ordered Sepsis (View protocol) Sepsis Present: No Resident Review Statement Resident Statement: examined this patient Toni Soni MD 06/27/17 2238: Attending MD Review Statement Attending Statement Attending MD Statement: examined this patient, discuss w/resident/PA/RECYCLING DIRECTOR, agreed w/resident/PA/RECYCLING DIRECTOR, reviewed EMR data (avail) Attending Assessment/Plan: 81F PMH HTN, HLD, presenting with dysuria, generalized weakness, and unsteady gait. Treated for UTI without improvement, has almost fallen several times of late, lives alone. Also complains of urinary frequency and mild LE edema. Clinically dehydrated but otherwise well, labs unremarkable. Will admit to general medicine, echocardiogram, urine culture, PT eval, continue home meds, DVT PPx
[2017-06-27 19:00] VITALS: BP 146/60
[2017-06-27 22:39] VITALS: BP 130/60
[2017-06-28 06:33] VITALS: BP 136/60
--- NOTE | 2017-06-28 13:13 | PN- Att Addend ---
Attending Addendum Attending Brief Note 81F PMH HTN, HLD, presenting with dysuria, generalized weakness, and unsteady gait. Treated for UTI without improvement. Also complains of urinary frequency and mild LE edema. Jere falls at home and lives alone. General Appearance Alert, Oriented X3, Cooperative, No Acute Distress HEENT Atraumatic, PERRLA, EOMI, Mucous Membr. moist/pink Neck Supple Cardiovascular S1S2 + Lungs Normal Air Movement Abdomen Soft, No Tenderness Neurological Normal Speech, Sensation Intact, Cranial Nerves 3-12 NL Extremities pitting edema mild. F/u echocardiogram, f/u urine culture, PT eval, continue home meds, DVT PPx Admission Lab Results I reviewed the following labs: Laboratory Tests 06/27 1445 Urines Urinalysis MOD H Urine Color (YEL,AMB,STR) YEL Urine Clarity (CLEAR) HAZY H Urine pH (5.0 - 8.0) 7.5 Ur Specific [place] (1.001 - 1.035) 1.010 Urine Protein (NEG,<30 MG/DL) NEG Urine Ketones (NEG) NEG Urine Nitrite (NEG) NEG Urine Bilirubin (NEG) NEG Urine Urobilinogen (0.1 - 1.0 EU/dl) 0.2 Ur Leukocyte Esterase (NEG) NEG Ur Microscopic SEDIMENT EXAMINED Urine RBC (0 - 5 /HPF) RARE Ur Epithelial Cells (NONE,FEW) RARE Urine Bacteria (NEG/NONE) RARE H Urine Mucus (FEW,NONE) FEW Urine Hemoglobin (NEG) NEG Urine Glucose (N MG/DL) NEG 06/27 1340 Chemistry Sodium (137 - 145 mmol/L) 139 Potassium (3.5 - 5.1 mmol/L) 4.4 Chloride (98 - 107 mmol/L) 100 Carbon Dioxide (22 - 30 mmol/L) 30 Anion Gap (5 - 16) 9 BUN (7 - 17 mg/dL) 26 H Creatinine (0.5 - 1.0 mg/dL) 1.0 Estimated GFR (>60 ml/min) 53 L BUN/Creatinine Ratio (7 - 25 %) 26.0 H Glucose (65 - 99 mg/dL) 91 Calcium (8.4 - 10.2 mg/dL) 9.8 Iron (37 - 170 ug/dL) 51 TIBC (265 - 497 ug/dL) 363 Ferritin (11.1 - 264 ng/mL) 16.8 Total Bilirubin (0.2 - 1.3 mg/dL) 0.5 AST (14 - 36 U/L) 27 ALT (9 - 52 U/L) 23 Alkaline Phosphatase (<127 U/L) 67 Troponin I (< 0.11 ng/ml) < 0.01 [id number] Pept (<125 pg/mL) 58.0 Total Protein (6.3 - 8.2 g/dL) 6.6 Albumin (3.5 - 5.0 g/dL) 3.9 Globulin (1.9 - 4.2 gm/dL) 2.7 Albumin/Globulin Ratio (1.1 - 2.2 %) 1.4 Vitamin B12 (239 - 931 pg/mL) > 1000 H 25-OH Vitamin D Total (30 - 100 ng/ml) 80.3 Folate (2.76 - 20.0 ng/mL) > 20.0 H Free T4 (0.85 - 1.93 ng/dL) 1.25 Total T3 (0.97 - 1.69 ng/mL) 0.89 L TSH &T3 &Free T4 Intrp (0.270 - 4.20 uIU/mL) 0.111 L Hematology CBC w Diff NO MAN DIFF REQ WBC (4.8 - 10.8 /CUMM) 5.8 RBC (4.20 - 5.40 /CUMM) 3.89 L Hgb (12.0 - 16.0 G/DL) 11.3 L Hct (37 - 47 %) 33.4 L MCV (81.0 - 99.0 FL) 85.8 MCH (27.0 - 31.0 PG) 29.0 MCHC (33.0 - 37.0 G/DL) 33.9 RDW (11.5 - 14.5 %) 14.9 H Plt Count (130 - 400 /CUMM) 244 MPV (7.4 - 10.4 FL) 8.2 Gran % (42.2 - 75.2 %) 65.4 Lymphocytes % (20.5 - 51.1 %) 24.2 Monocytes % (1.7 - 9.3 %) 7.7 Eosinophils % (0 - 5 %) 1.7 Basophils % (0.0 - 2.0 %) 1.0 Absolute Granulocytes (1.4 - 6.5 /CUMM) 3.8 Absolute Lymphocytes (1.2 - 3.4 /CUMM) 1.4 Absolute Monocytes (0.10 - 0.60 /CUMM) 0.4 Absolute Eosinophils (0.0 - 0.7 /CUMM) 0.1 Absolute Basophils (0.0 - 0.2 /CUMM) 0.1 Retic Count (0.5 - 2.0 %) 0.9 Admission Meds I reviewed the following Meds: Current Medications Sig/Heather Start time Last Medication Dose Stop Time Status Admin Acetaminophen 650 MG Q6P PRN 06/27 174 AC (Tylenol) Atorvastatin Calcium 10 MG 1700 06/28 170 AC (Lipitor) Cholecalciferol 1,000 IU DAILY 06/28 09 AC 06/28 (Vitamin D) 08 Citalopram 20 MG DAILY 06/28 09 AC 06/28 Hydrobromide 08 (Celexa) Enoxaparin Sodium 40 MG DAILY 06/28 09 AC 06/28 (Lovenox) 0804 Furosemide 20 MG DAILY 06/28 09 AC 06/28 (Lasix) 0804 Ibuprofen 600 MG Q6P PRN 06/27 1744 AC 06/28 (Motrin) 0019 Levothyroxine Sodium 0.075 MG DAILY AC 06/28 07 AC 06/28 (Synthroid) 0540 Lisinopril 5 MG DAILY 06/28 09 AC 06/28 (Prinivil) 0815 Lorazepam 0.5 MG BID PRN 06/27 2100 AC (Ativan) 07/04 2058 Oxycodone/ 2 TAB Q6P PRN 06/27 174 AC Acetaminophen (Percocet)
[2017-06-28 14:34] VITALS: BP 148/62
[2017-06-28 22:27] VITALS: BP 130/60
[2017-06-29 06:47] VITALS: BP 148/60
--- NOTE | 2017-06-29 10:33 | PN- Housestaff ---
See Addendum Subjective Follow-up For: Weakness Subjective: No overnight events. The patient still feels a little weak and is depressed about giving up driving and her independence. She said she might be interested in talking to someone tomorrow. No chest pain or shortness of breath. She did have aches out sandwich last night and had some nausea afterwards but this was relieved by medication. She wants to try pizza today. Review of Systems Constitutional: Reports: no symptoms. EENTM: Reports: no symptoms. Cardiovascular: Reports: no symptoms. Respiratory: Reports: no symptoms. Gastrointestinal: Reports: see HPI. Genitourinary: Reports: no symptoms. Musculoskeletal: Reports: see HPI. Skin: Reports: no symptoms. Neurological/Psychological: Reports: no symptoms. Hematologic/Endocrine: Reports: no symptoms. Immunologic/Allergic: Reports: no symptoms. Objective Last 24 Hrs of Vital Signs/I&O Vital Signs Date Time Temp Pulse Resp B/P B/P Pulse O2 O2 Flow FiO2 Mean Ox Delivery Rate 06/29 0951 79 148/60 06/29 0647 97.6 68 16 148/60 99 Room Air 06/28 2227 98.1 69 20 130/60 98 Room Air 06/28 1434 98.6 83 20 148/62 97 Intake & Output 06/29 1600 06/29 0800 05/ 0000 Intake Total 360 600 Output Total 200 Balance 160 600 Intake, Oral 360 600 Output, Urine 200 Patient 47.287 kg Weight Weight Bed scale Measurement Method Physical Exam General Appearance: Alert, Oriented X3, Cooperative, No Acute Distress Cardiovascular: Regular Rate, Normal S1, Normal S2, systolic murmur Lungs: Clear to Auscultation Abdomen: Normal Bowel Sounds, Soft, No Tenderness Extremities: Normal Pulses Current Medications: Current Medications Sig/Heather Start time Last Medication Dose Route Stop Time Status Admin Acetaminophen 650 MG Q6P PRN 06/27 1745 AC PO Atorvastatin Calcium 10 MG 1700 06/28 1700 AC 06/28 PO 1600 Cholecalciferol 1,000 IU DAILY 06/28 09 AC 06/29 PO 0950 Citalopram 20 MG DAILY 06/28 899 AC 06/29 Hydrobromide PO 0951 Enoxaparin Sodium 40 MG DAILY 06/28 899 AC 06/29 SC 0951 Furosemide 20 MG DAILY 06/28 899 AC 05/06 PO 0951 Ibuprofen 600 MG Q6P PRN 06/27 1745 AC 06/28 PO 0019 Levothyroxine Sodium 0.075 MG DAILY AC 06/28 0700 AC 06/29 PO 0600 Lisinopril 5 MG DAILY 06/28 0900 AC 06/29 PO 0951 Lorazepam 0.5 MG BID PRN 06/27 2100 AC 06/28 PO 07/04 205 1432 Ondansetron HCl 4 MG ONCE ONE 06/280 DC 06/28 PO 06/28 2130 212 Oxycodone/ 2 TAB Q6P PRN 06/27 1745 AC Acetaminophen PO Assessment/Plan Assessment: This is an 81 yo female w/ PMH of hypothyroidism and anxiety who came in for CC of progressive weakness and worsening lower extremity edema. PLAN Weakness: Echocardiogram Consider psychiatry consult tomorrow Anemia: Hb 11.3. Denies any bleeding. Iron studies normal. Hypothyroidism Continue 75mcg levothyroxine Hypertension Continue lisinopril 5 mg by mouth daily Continue furosemide 20 mg daily Depression and anxiety: Continue citalopram 20 mg daily Continue lorazepam 0.5 mg by mouth daily Hyperlipidemia Continue statin DNR/DNI REG DIET CHEM PPX Problem List: 1. Weakness Pain Ratin Pain Location: no Pain Goal: Remain pain free Pain Plan: see a/p Tomorrow's Labs & Rationales: no
[2017-06-29 15:18] VITALS: BP 138/62
[2017-06-29 22:19] VITALS: BP 150/52
[2017-06-30 06:01] VITALS: BP 112/58
--- NOTE | 2017-06-30 07:02 | PN- Housestaff ---
Oralia SHELLEY,Elizabeth 06/30/17 0701: Subjective Follow-up For: Weakness, depression Subjective: sore hip Brenda at bedside. No overnight events. Complaints of sore hip. Denies any falls. She requested to go to short-term rehabilitation tomorrow. She denies chest pain, shortness of breath, weakness. She says she is depressed and would like to see psychiatry. No suicidal ideation. Review of Systems Constitutional: Reports: no symptoms, see HPI. Objective Last 24 Hrs of Vital Signs/I&O Vital Signs Date Time Temp Pulse Resp B/P B/P Pulse O2 O2 Flow FiO2 Mean Ox Delivery Rate 06/30 0912 75 112/58 06/30 0601 97.8 75 18 112/58 98 Room Air 06/29 2219 98.1 73 19 150/52 99 Room Air 06/29 1518 98.0 78 20 138/62 98 Intake & Output 06/30 1600 06/30 0800 06/30 0000 Intake Total 100 100 Output Total Balance 100 100 Intake, Oral 100 100 Patient 90 lb 8 oz Weight Physical Exam General Appearance: Alert, Oriented X3, Cooperative, No Acute Distress Cardiovascular: Normal S1, Normal S2, No Murmurs Lungs: Clear to Auscultation Abdomen: Soft, No Tenderness, No Hepatospenomegaly Neurological: Normal Speech, Normal Tone, Sensation Intact Extremities: No Edema Current Medications: Current Medications Sig/Heather Start time Last Medication Dose Route Stop Time Status Admin Acetaminophen 650 MG Q6P PRN 06/27 174 AC PO Atorvastatin Calcium 10 MG 1700 06/28 1700 AC 06/29 PO 1857 Cholecalciferol 1,000 IU DAILY 06/28 899 AC 06/30 PO 0911 Citalopram 20 MG DAILY 06/28 899 AC 06/30 Hydrobromide PO 0912 Enoxaparin Sodium 40 MG DAILY 06/28 899 AC 06/30 SC 0912 Ferrous Sulfate 325 MG DAILY 06/30 1115 AC PO Furosemide 20 MG DAILY 06/28 899 AC 06/30 PO 0912 Ibuprofen 600 MG Q6P PRN 06/27 1745 AC 06/28 PO 0019 Levothyroxine Sodium 0.05 MG DAILY AC 07/01 699 DC PO Levothyroxine Sodium 0.05 MG DAILY AC 07/01 699 AC PO Levothyroxine Sodium 0.05 MG DAILY AC 06/30 0930 CAN PO Levothyroxine Sodium 0.075 MG DAILY AC 06/28 0700 DC 06/30 PO 0539 Lisinopril 5 MG DAILY 06/28 0900 AC 06/30 PO 0912 Lorazepam 0.5 MG BID PRN 06/27 2100 AC 06/28 PO 07/04 205 1432 Oxycodone/ 2 TAB Q6P PRN 06/27 1745 AC Acetaminophen PO Assessment/Plan Assessment: This is an 81 yo female w/ PMH of hypothyroidism and anxiety who came in for CC of progressive weakness and worsening lower extremity edema. WeaProblem list 1. Weakness 2. Depression and anxiety * Patient underwent Echocardiogram and we will follow up with the results. * psychiatry consult for depression and anxiety. * Anemia: Hb 11.3. Denies any bleeding. Iron level is 52, little bit on the lower side. Ferritin is 16.8 and is on the low side of normal. We will start her on ferrous sulfate daily. * Hypothyroidism-Continue 75mcg levothyroxine * Hypertension Continue lisinopril 5 mg by mouth daily Continue furosemide 20 mg daily * Continue citalopram 20 mg delicia and lorazepam 0.5 mg by mouth daily for anxiety and depression. * Continue statin for hyperlipidemia. Physical therapy services to short-term rehabilitation. Patient would like to go to nearest ER tomorrow. DNR/DNI REG DIET CHEM PPX Problem List: 1. Weakness 2. Lower extremity edema Pain Ratin Pain Location: none Pain Goal: Remain pain free Pain Plan: tylenol Tomorrow's Labs & Rationales: none Nelli Martinez MD 06/30/17 1153: Attending MD Review Statement Attending Statement Attending MD Statement: examined this patient, discuss w/resident/PA/INFORMATION TECH, agreed w/resident/PA/INFORMATION TECH, reviewed EMR data (avail), discussed with nursing, discussed with case mgmt, reviewed images, amended to note Attending Assessment/Plan: Patient seen and examined, she is feeling better but not back to baseline yet. She is complaining of some pain in her bilateral extremities. She is still feeling generalized weakness. Vital Signs Date Time Temp Pulse Resp B/P B/P Pulse O2 O2 Flow FiO2 Mean Ox Delivery Rate 07/01 911 75 112/58 06/30 0601 97.8 75 18 112/58 98 Room Air 06/29 2219 98.1 73 19 150/52 99 Room Air 06/29 1518 98.0 78 20 138/62 98 on exam; aox3, nad. cv; s1,s2 rrr resp; clear abd; soft, nt, bs+ ext; no edema no labs. A/P: 81 y/o F with pmh sig for hyperlipidemia, hypertension, anxiety, depression , hypothyroidism, admitted with generalized weakness. Patient was treated for UTI as an outpatient. Patient also complains of bilateral lower extremity pain. Agree with stopping her statin. Reviewing back her cholesterol was good last year. She is on a low-dose of statin which likely at this point she does not need. Her magnesium level was more than 2 on admission. She has mild anemia. Physical therapy is recommending rehabilitation for her. Noted abnormal thyroid function testing while pt on levothyroxine. Will decrease the dose of her with her levothyroxine to 0.05 mg. Continue the rest of the medications. Patient on Lovenox for DVT prophylaxis
--- NOTE | 2017-06-30 09:03 | Patient Discharge Instructions ---
Discharge Instructions General Discharge Information You were seen/treated for: Weakness and gait instability. Watch for these problems: In case of any weakness, fall, loss of consciousness, fatigue, chest pain, shortness of breath please go to nearest emergency room. Special Instructions: Please follow-up with your primary care provider within 1-2 weeks of discharge. Diet Continue normal diet: Yes Activity Full Activity/No Limits: No Activity Self Limited: Yes Acute Coronary Syndrome Inclusion Criteria At DC or during hospital stay patient has or had the following: ACS DIAGNOSIS No Discharge Core Measures Meds if any: Prescribed or Continued at Discharge Meds if any: NOT Prescribed or Continued at Discharge Congestive Heart Failure Inclusion Criteria At DC or during hospital stay patient has or had the following: CHF DIAGNOSIS No Discharge Core Measures Meds if any: Prescribed or Continued at Discharge Meds if any: NOT Prescribed or Continued at Discharge Cerebrovascular accident Inclusion Criteria At DC or during hospital stay patient has or had the following: CVA/TIA Diagnosis No Discharge Core Measures Meds if any: Prescribed or Continued at Discharge Meds if any: NOT Prescribed or Continued at Discharge Venous thromboembolism Inclusion Criteria VTE Diagnosis No VTE Type NONE VTE Confirmed by (Test) NONE Discharge Core Measures - Per Current guidelines, there needs to be overlap - treatment for the first 5 days of Warfarin therapy. - If discharged on Warfarin prior to 5 days of - overlap therapy, the patient will need to be - assessed for post discharge needs including - *Post discharge parental anticoagulation - *Warfarin and/or parental anticoagulation education - *Follow up date to check INR post discharge At least 5 days overlap therapy as Inpatient No Meds if any: Prescribed or Continued at Discharge Note: Overlap Therapy is Warfarin and Anticoagulant Meds if any: NOT Prescribed or Continued at Discharge
[2017-06-30] MEDS ORDERED: SYNTHROID50 MCG PO (09:12)
[2017-06-30] MEDS ORDERED: FERROUS SULFAT325 M2 PO (11:11)
--- NOTE | 2017-06-30 11:27 | Discharge Summary ---
Visit Information Visit Dates Admission Date: 06/27/17 Discharge Date: 07/01/17 Hospital Course Course Attending Physician: Nelli Martinez MD Primary Care Physician: Claudio SHELLEY,[facility] Course: This is an 81 yo woamn w/ PMH of hypothyroidism and anxiety who came in to ED on 06/27/17 with CC of progressive weakness and worsening lower extremity edema. She additionaly had dysuria and unsteady gait. She was recently treated for UTI without improvement prior to admission. On presentation, she complained of urinary frequency and mild LE edema. On exam, she was clinically dehydrated. She was admitted to general medicine. She was unsafe at home as she was unable to meet basic needs. Vitals: 98.2, 82, 16, 154/68, 96. UA: Negative ketone, negative nitrite, negative leukocyte esterase, rare urine bacteria CBC: White count 5.8, hemoglobin 11.3, hematocrit 33.4, platelet 144 BEP: Sodium 139, potassium 4.4, chloride 100, bicarbonate 30, BUN 26, creatinine 1.0 Glucose 91 negative LFTs Negative troponin Chest x-ray shows clear lungs without consolidation, edema, or effusion. No pneumothorax. Aorta is calcified and multiple degenerative changes and thoracic lumbar spine are seen. 1. Weakness: B12, folate and vitamin D levels were beyond reference ranges, likely oversupplementation. Her serum iron was at lower limit of normal, ferritin at lower limit of normal and TIBC within normal limits. She was started on iron supplementation, thought being that this probably was contributing to her symptoms of restless leg(ache/discomfort while sitting and improvement with ambulation). She was also on simvastatin 20 mg, although low-dose can cause non-CK elevation myopathy in the elderly. Benefits of statins of 75 years of age are debatable. We have discontinued her simvastatin. 2. Anemia: Likely a combination of iron deficiency as well as anemia. Inflammation. Start supplementation with ferrous sulfate daily. 3. Hypothyroidism. Depressed TSH was noted. Her levothyroxine was decreased from 75 g to 50 g. Please follow-up with primary care physician for further dosing recommendations. 4. Hypertension. Her home antihypertensive regimen was continued. 5. Depression and anxiety: Citalopram 20 mg daily and Ativan 0.5 mg daily was continued. DNR/DNI. Regular diet. Lovenox for DVT prophylaxis. Allergies: Coded Allergies: acetaminophen (From PERCOCET) (FEELS FUNNY - PER PT IS UNSURE ABOUT APAP ) adhesive (SKIN RASH 05/25/17) oxycodone (From PERCOCET) (FEELS FUNNY 05/25/17) Disposition Summary Disposition Principal Diagnosis: Weakness, myopathy. Additional Diagnosis: Anemia, of inflamation and mild iron deficiency. Discharge Disposition: SNF Discharge Instructions General Discharge Information Code Status: Do Not Resucitate/Intubat Patient's Diet: Regular diet Patient's Activity: As tolerated Follow-Up Instructions/Appts: Please follow up with PCP as an outpatient. Medications at Discharge Discharge Medications: Stop taking the following medications: Levothyroxine Sodium (Levoxyl) 75 MCG TABLET ORAL DAILY Qty = 30 Simvastatin (Simvastatin*) 20 MG TABLET ORAL Every night Qty = 30 Sulfamethoxazole/Trimethoprim (Bactrim Ds Tablet) 800 MG-160 MG TABLET ORAL TWICE DAILY Qty = 14 Continue taking these medications: Furosemide (Furosemide) 20 MG TABLET 1 Tablet ORAL DAILY Qty = 30 Comments: Last Taken: 07/01/17 Time: 8:00 am Lisinopril (Lisinopril) 5 MG TABLET 1 Tablet ORAL DAILY Qty = 30 Comments: Last Taken: 07/01/17 Time: 8:00 am Lorazepam (Lorazepam) 0.5 MG TABLET 1 Tablet ORAL 2 x Daily as needed as needed for ANXIETY Qty = 30 Comments: Last Taken: 06/28/17 Time: 2:30 PM Meclizine HCl (Meclizine HCl) 25 MG TABLET 1 Tablet ORAL DAILY Qty = 30 Citalopram Hydrobromide (Citalopram HBr) 20 MG TABLET 1 Tablet ORAL DAILY Qty = 30 Comments: Last Taken: 07/01/17 Time: 8:00 am Cholecalciferol (Vitamin D3) (Vitamin D) (Unknown Strength) TABLET Unknown Dose ORAL DAILY Comments: Last Taken: 07/01/17 Time: 8:00 am [Rolling walker] Qty = 1 Start taking the following new medications: Ferrous Sulfate (Ferrous Sulfate) 325 MG (65 MG IRON) TABLET.DR 325 Milligram ORAL DAILY Qty = 30 No Refills Comments: Last Taken: 07/01/17 Time: 8:00 AM Levothyroxine Sodium (Synthroid) 50 MCG TABLET 1 Tablet ORAL DAILY Qty = 30 No Refills Comments: Last Taken: 07/01/17 Time: 8:00 AM Copies To: Michell Snyder MD Attending MD Review Statement Documenting Attending: Nelli Martinez MD
[2017-06-30 14:59] VITALS: BP 148/58
--- NOTE | 2017-06-30 16:28 | ECHOCARDIOGRAM REPORT ---
NAKIA SCHAEFFER Age: 81 : 1935 Gender: F Exam Date: 06/29/2017 13:14 Exam Location: [address] [place] [address] A Ht (in): 59 Wt (lb): 100 BSA: 1.38 BP: 148 / 60 Ordering Physician: Sherlyn Sargent MD Referring Physician: Sherlyn Sargent MD Technologist: Pat Contreras [facility] Room Number: 229-01 Indications: MURMUR/CLICK Rhythm: Sinus Technical Quality: Fair, Technically difficult study FINDINGS Left Ventricle Normal size left ventricle. No obvious regional wall motion abnormalities. Normal left ventricular ejection fraction estimated at 55-60%. Right Ventricle Right ventricle not well visualized, grossly normal. Right Atrium Normal right atrial size. Left Atrium Normal left atrial size. Mitral Valve Mitral valve thickened. Mild mitral annular calcification. Mild mitral regurgitation. Aortic Valve No other valvular abnormalities. Trileaflet aortic valve. Diffuse thickening (sclerosis) of the aortic valve cusps without reduced excursion. No aortic stenosis. Mild aortic regurgitation. Tricuspid Valve No evidence of pulmonary hypertension. Mild tricuspid regurgitation. Pulmonic Valve Pulmonic valve not well visualized, grossly normal. Pericardium No pericardial effusion. Great Vessels Aortic root and proximal ascending aorta not well visualized, grossly normal. CONCLUSIONS 1. Moderate aortic sclerosis is present with mild aortic insufficiency. 2. Mitral leaflet thickening is present with mild anular calcification and mild mitral insufficiency. 3. There is no pericardial fluid detected. 4. THe left ventricualr chamber size and systolic function appear normal with no visible resting wall motion abnormalities. 5. Mild tricuspid insufficiency is present with no evidence of pulmonary hypertension. Rosalie Moulton M.D. (Electronically Signed) Final Date: 30 Jun 2017 16:28 MEASUREMENTS (Male / Female) Normal Values 2D ECHO LV Diastolic Diameter PLAX 3.2 cm 4.2 - 5.9 / 3.9 - 5.3 cm LV Systolic Diameter PLAX 1.9 cm 2.1 - 4.0 cm LV Fractional Shortening PLAX 40.6 % 25 - 46 % LV Ejection Fraction 2D Teich 72.7 % IVS Diastolic Thickness 1.2 cm LVPW Diastolic Thickness 1.1 cm LV Relative Wall Thickness 0.7 RV Internal Dim ED PLAX 2.4 cm 1.9 - 3.8 cm LVOT Diameter 1.8 cm Aortic Root Diameter 2.9 cm LA Systolic Diameter LX 3.2 cm 3.0 - 4.0 / 2.7 - 3.8 cm LA Volume 22.0 cm 18 - 58 / 22 - 52 cm Ascending Aorta Diameter 2.9 cm DOPPLER AV Peak Velocity 170.0 cm/s AV Peak Gradient 11.6 mmHg AV Mean Velocity 121.0 cm/s AV Mean Gradient 6.0 mmHg AV Velocity Time Integral 36.9 cm LVOT Peak Velocity 109.0 cm/s LVOT Peak Gradient 4.8 mmHg LVOT Mean Velocity 71.4 cm/s LVOT Mean Gradient 2.0 mmHg LVOT Velocity Time Integral 25.8 cm LVOT Stroke Volume 65.7 cm AV Area Cont Eq vti 1.8 cm AV Area Cont Eq pk 1.6 cm MV Peak Velocity 108.0 cm/s MV Peak Gradient 4.7 mmHg MV Mean Velocity 60.6 cm/s MV Mean Gradient 2.0 mmHg Mitral E Point Velocity 71.6 cm/s Mitral A Point Velocity 90.8 cm/s Mitral E to A Ratio 0.8 MV PHT Velocity 92.3 cm/s MV Deceleration [place] 393.0 cm/s MV Pressure Half Time 70.5 ms MV Area PHT 3.1 cm MV Deceleration Time 230.0 ms TR Peak Velocity 231.0 cm/s TR Peak Gradient 21.3 mmHg Right Atrial Pressure 5.0 mmHg Pulmonary Artery Systolic Pressu 26.3 mmHg Right Ventricular Systolic Press 26.3 mmHg PV Peak Velocity 95.1 cm/s PV Peak Gradient 3.6 mmHg PV Mean Velocity 63.1 cm/s PV Mean Gradient 2.0 mmHg PV Velocity Time Integral 19.6 cm LV E' Lateral Velocity 10.0 cm/s Mitral E to LV E' Lateral Ratio 7.2 LV E' Septal Velocity 5.4 cm/s Mitral E to LV E' Septal Ratio 13.4
[2017-06-30 22:19] VITALS: BP 128/60
[2017-07-01 06:36] VITALS: BP 136/68
--- NOTE | 2017-07-01 07:08 | PN- Housestaff ---
Oralia SHELLEY,Elizabeth 07/01/17 0707: Subjective Follow-up For: weakness,lower extremity edema Complaints: no complaints Subjective: Pt seen and examined at bedside. No overnight events. Slept well. Denies weakness. She refuses to be seen by psychiatry today. Review of Systems Constitutional: Reports: no symptoms, see HPI. Objective Last 24 Hrs of Vital Signs/I&O Vital Signs Date Time Temp Pulse Resp B/P B/P Pulse O2 O2 Flow FiO2 Mean Ox Delivery Rate 07/01 806 138/70 07/01 0636 97.7 79 18 136/68 99 Room Air 06/30 2219 97.9 70 18 128/60 99 Room Air 06/30 1459 97.9 85 18 148/58 98 Room Air 06/30 1216 Room Air Room Air 06/30 0912 75 112/58 Intake & Output 07/01 1600 07/01 0800 07/01 0000 Intake Total 200 150 Output Total 350 Balance -150 150 Intake, Oral 200 150 Number 1 Bowel Movements Output, Urine 350 Patient 88 lb Weight Physical Exam General Appearance: Alert, Oriented X3, Cooperative, No Acute Distress Cardiovascular: Regular Rate, Normal S1, Normal S2, No Murmurs Lungs: Clear to Auscultation Abdomen: Soft, No Tenderness, No Hepatospenomegaly Neurological: Strength at 5/5 X4 Ext, Normal Tone, Sensation Intact, Cranial Nerves 3-12 NL Extremities: No Edema Vascular: Normal Pulses Current Medications: Current Medications Sig/Heather Start time Last Medication Dose Route Stop Time Status Admin Acetaminophen 650 MG Q6P PRN 06/27 1745 AC PO Atorvastatin Calcium 10 MG 1700 06/28 1700 DC 06/29 PO 1857 Cholecalciferol 1,000 IU DAILY 06/28 899 AC 07/01 PO 0807 Citalopram 20 MG DAILY 06/28 899 AC 07/01 Hydrobromide PO 08 Enoxaparin Sodium 40 MG DAILY 06/28 899 AC 07/01 SC 0808 Ferrous Sulfate 325 MG DAILY 06/30 1115 AC 07/01 PO 0807 Furosemide 20 MG DAILY 06/28 899 AC 07/01 PO 0808 Ibuprofen 600 MG Q6P PRN 06/27 1745 AC 06/28 PO 0019 Levothyroxine Sodium 0.05 MG DAILY AC 07/01 0700 DC PO Levothyroxine Sodium 0.05 MG DAILY AC 07/01 0700 AC 07/01 PO 0525 Levothyroxine Sodium 0.05 MG DAILY AC 06/30 0930 CAN PO Lisinopril 5 MG DAILY 06/28 0900 AC 07/01 PO 0807 Lorazepam 0.5 MG BID PRN 06/27 2100 AC 06/28 PO 07/04 2059 1432 Oxycodone/ 2 TAB Q6P PRN 06/27 1745 AC Acetaminophen PO Patient Medication 1 ED ONE ONE 06/30 1545 DC 06/30 Teaching ED 06/30 1546 1704 Assessment/Plan Assessment: This is an 81 yo female w/ PMH of hypothyroidism and anxiety who came in for CC of progressive weakness and worsening lower extremity edema. Problem list 1. Weakness 2. Depression and anxiety * Patient underwent Echocardiogram which was found to be normal. Patient updated about a "results. * psychiatry consult for depression and anxiety. Patient refuses to be seen by psychiatry today. She said she wants to take things slowly. Continue citalopram 20 mg delicia and lorazepam 0.5 mg by mouth daily for anxiety and depression * Anemia: Hb 11.3. Denies any bleeding. Iron level is 52, little bit on the lower side. Ferritin is 16.8 and is on the low side of normal. Continue ferrous sulfate. * Hypothyroidism-Continue 50mcg levothyroxine * Hypertension Continue lisinopril 5 mg by mouth daily Continue furosemide 20 mg daily * Patient was on statin which was discontinued in view of weakness. Her bilateral pedal edema improved. * Patient complains of dry mouth. We can give her some saline spray. We will check her BP. Physical therapy suggest short-term rehabilitation. DNR/DNI REG DIET CHEM PPX Problem List: 1. Weakness 2. Lower extremity edema Pain Ratin Pain Location: none Pain Goal: Remain pain free Pain Plan: tylenol Tomorrow's Labs & Rationales: none Nelli Martinez MD 07/01/17 1034: Attending MD Review Statement Attending Statement Attending MD Statement: examined this patient, discuss w/resident/PA/AD TAKER, agreed w/resident/PA/AD TAKER, reviewed EMR data (avail), discussed with nursing, discussed with case mgmt, reviewed images, amended to note Attending Assessment/Plan: Patient seen and examined, feels okay. She was complaining of dry mouth and dry skin. Vital Signs Date Time Temp Pulse Resp B/P B/P Pulse O2 O2 Flow FiO2 Mean Ox Delivery Rate 07/01 806 138/70 07/01 0636 97.7 79 18 136/68 99 Room Air 06/30 2219 97.9 70 18 128/60 99 Room Air 06/30 1459 97.9 85 18 148/58 98 Room Air 06/30 1216 Room Air Room Air on exam; aox3, nad. cv; s1,s2, rrr resp; clear abd; soft, nt, bs+ ext; no edema Laboratory Tests 07/01 941 Chemistry Sodium Pending Potassium Pending Chloride Pending Carbon Dioxide Pending Anion Gap Pending BUN Pending Creatinine Pending BUN/Creatinine Ratio Pending A/P; 81 y/o F with pmh sig for hyperlipidemia, hypertension, anxiety, depression, hypothyroidism, admitted with generalized weakness. Patient was treated for UTI as an outpatient. Patient was complaining of bilateral lower extremity pain yesterday. We have stopped her statin. Her INR levels were low so therefore restarted on iron replacement. Her magnesium levels were fine. Her thyroid function was also abnormal so we have decreased the dose of her levothyroxine this was communicated to the patient. Patient is otherwise medically stable for discharge pending BEP results. She has a bed available at rehabilitation and if her creatinine is stable she can be discharged to rehabilitation today.
[2017-07-01 11:50] VITALS: BP 138/70
== END 2017-07-01 13:17 | DRG 948 ==
LOC: ERH 12:01 → ERHI 17:10 → 2NA 17:10 → ENRESERV 18:01 → ENTRNSPT 18:54 → 2NA 19:34 → CMPTRNSPT 20:00 → 2NA 06-30 07:34 → ENPENDDIS 07-01 10:32 → 2NA 07-01 13:17
PROVIDERS: Physician Assistant
DX: R53.1 Weakness (principal); D64.9 Anemia, unspecified; E03.9 Hypothyroidism, unspecified; R35.0 Frequency of micturition; R26.81 Unsteadiness on feet; R60.0 Localized edema; F41.9 Anxiety disorder, unspecified; Z91.81 History of falling; F32.9 Major depressive disorder, single episode, unspecified; E78.5 Hyperlipidemia, unspecified; Z88.6 Allergy status to analgesic agent; Z88.5 Allergy status to narcotic agent; Z66 Do not resuscitate
CPT/HCPCS: 2NASP; 36415; 71046; 81001; 82436; 83010; 87086; 93005; 93010; 93306; 97110-GO; 97116-GO; 97161-GP; 97530-GO; J1650; J3101

== ENCOUNTER 2017-10-30 12:42 | Inpatient (IN) | payer OTHER, MEDICARE ==
[~2017-10-30] VITALS: Ht 147.3 cm; Wt 42.2 kg
[~2017-10-30 12:42] MED LIST changes: +FERROUS SULFAT325 M2 PO; +SYNTHROID50 MCG PO
--- NOTE | 2017-10-30 13:44 | ED GENERAL ADULT ---
See Addendum History of Present Illness General Chief Complaint: General Adult Stated Complaint: LETHARGY AND POSSIBLE UTI Source: patient Exam Limitations: no limitations Vital Signs & Intake/Output Vital Signs & Intake/Output Vital Signs Date Time Temp Pulse Resp B/P B/P Pulse O2 O2 Flow FiO2 Mean Ox Delivery Rate 10/30 1353 98.0 86 18 174/73 95 Room Air 10/30 1246 98.2 88 18 150/90 94 Room Air Allergies Coded Allergies: acetaminophen (From PERCOCET) (FEELS FUNNY - PER PT IS UNSURE ABOUT APAP ) adhesive (SKIN RASH 05/25/17) oxycodone (From PERCOCET) (FEELS FUNNY 05/25/17) Reconcile Medications Cholecalciferol (Vitamin D3) (Vitamin D) (Unknown Strength) TABLET (Unknown Dose) PO DAILY SUPPLEMENT (Reported) Citalopram Hydrobromide (Citalopram HBr) 20 MG TABLET 1 TAB PO DAILY MENTAL HEALTH (Reported) Ferrous Sulfate 325 MG (65 MG IRON) TABLET.DR 325 MG PO DAILY anemia Furosemide 20 MG TABLET 1 TAB PO DAILY DIURETIC (Reported) Levothyroxine Sodium (Synthroid) 50 MCG TABLET 1 TAB PO DAILY hypothyroid Lisinopril 5 MG TABLET 1 TAB PO DAILY BP (Reported) Lorazepam 0.5 MG TABLET 1 TAB PO BIDP PRN ANXIETY (Reported) Meclizine HCl 25 MG TABLET 1 TAB PO DAILY VERTIGO (Reported) [Rolling walker] gait instability Triage Note: PT BIBA FOR "LETHARGY" PER EMS. PT STATES HER LEGS"DONT MOVE, I HAVE TO DRAG MY RIGHT LEG". PT IS AOX4. DENIES ANY OTHER PROBLEMS. Triage Nurses Notes Reviewed? yes HPI: 81-year-old female with chronic weakness presents with progressive right sided weakness for the past 3 days and with today being the worst. Says that she has trouble walking and has a dragging her right leg. Also experiencing drainage from left eye. Negative for slurred speech or facial asymmetry. Past History Travel History Traveled to [place] past 21 day No Medical History Any Pertinent Medical History? see below for history Neurological: NONE EENT: NONE Cardiovascular: hypertension, hyperlipidemia, systolic CHF Respiratory: NONE Gastrointestinal: NONE Hepatic: NONE Renal: RECURRENT UTI's Musculoskeletal: NONE Psychiatric: anxiety Endocrine: hypothyroidism Blood Disorders: NONE Cancer(s): NONE History of MRSA: No History of VRE: No History of CDIFF: No Surgical History Surgical History: non-contributory Psychosocial History Who do you live with Patient/Self Services at Home Nursing What is your primary language Frisian Tobacco Use: Quit >30 days ago ETOH Use: denies use Illicit Drug Use: denies illicit drug use Family History Family History, If Any: SISTER MOTHER Relation not specified for: Cerebral hemorrhage FH: CABG (coronary artery bypass surgery) Hx Contributory? No Review of Systems Review of Systems Constitutional: Reports: no symptoms. EENTM: Reports: no symptoms. Respiratory: Reports: no symptoms. Cardiovascular: Reports: no symptoms. GI: Reports: no symptoms. Genitourinary: Reports: no symptoms. Musculoskeletal: Reports: no symptoms. Skin: Reports: no symptoms. Neurological/Psychological: Reports: no symptoms. Hematologic/Endocrine: Reports: no symptoms. Immunologic/Allergic: Reports: no symptoms. All Other Systems: Reviewed and Negative Physical Exam Physical Exam General Appearance: no apparent distress, comfortable, frail Head: atraumatic, normal appearance Eyes: Left: other (scleral injections). Ears, Nose, Throat: normal pharynx, normal ENT inspection Neck: normal inspection, supple Respiratory: normal breath sounds, no respiratory distress, lungs clear Cardiovascular: murmur Extremities: Muscle strength intact. Patient having difficulty relaxing joints for further exam. Neurologic/Psych: oriented x 3, diplomatic courier II-XII nml as tested Reflexes: 4+: bicep (R), bicep (L), tricep (L), tricep (L), knee (R), knee (L), ankle (R), ankle (L). Core Measures ACS in differential dx? No CVA/TIA Diagnosis: No Sepsis Present: No Sepsis Focused Exam Completed? No Progress Differential Diagnoses I considered the following diagnoses in my evaluation of the patient: Conjunctivitis versus CVA versus limb weakness. Plan of Care: Orders Procedure Date/time Status URINALYSIS 10/30 1312 Complete CBC WITHOUT DIFFERENTIAL 10/30 1312 Complete BASIC METABOLIC PANEL 10/30 1312 Complete EKG 10/30 1312 Active Laboratory Tests 10/30/17 1353: Anion Gap 7, Estimated GFR > 60, BUN/Creatinine Ratio 22.9, Glucose 92, Calcium 9.3 10/30/17 1341: Urine Color YEL, Urine Clarity HAZY H, Urine pH 7.0, Ur Specific [place] 1.015, Urine Protein NEG, Urine Ketones NEG, Urine Nitrite POS H, Urine Bilirubin NEG, Urine Urobilinogen 0.2, Ur Leukocyte Esterase SMALL H, Ur Microscopic SEDIMENT EXAMINED, Urine RBC 3-5, Urine WBC 5-10 H, Ur Epithelial Cells MOD H, Urine Bacteria PACKD H, Hyaline Casts 1-3 H, Granular Casts 3-5 H, Urine Mucus RARE , Urine Hemoglobin NEG, Urine Glucose NEG 10/30/17 1312: CBC w Diff NO MAN DIFF REQ, RBC 3.82 L, MCV 87.1, MCH 29.7, MCHC 34.1, RDW 14.6 H, MPV 7.9, Gran % 60.7, Lymphocytes % 26.2, Monocytes % 9.0, Eosinophils % 3.4 , Basophils % 0.7, Absolute Granulocytes 2.9, Absolute Lymphocytes 1.2, Absolute Monocytes 0.4, Absolute Eosinophils 0.2, Absolute Basophils 0 Initial ED EKG: normal intervals, normal p-waves, normal QRS complex, t-wave inversion in 2, 3, and aVF present on prior ECG. Negative for ST segment deviation. Comments: Spoke with patient regarding laboratory and imaging results. Patient given potassium supplements. Patient to follow-up primary care physician for further evaluation and treatment. Departure Departure Disposition: HOME OR SELF CARE Condition: Stable Clinical Impression Primary Impression: Acute atopic conjunctivitis Qualifiers: Laterality: left Qualified Code: H10.12 - Acute atopic conjunctivitis, left eye Secondary Impressions: Acute cystitis Qualifiers: Hematuria presence: without hematuria Qualified Code: N30.00 - Acute cystitis without hematuria Hypokalemia Referrals: Claudio SHELLEY,Michell Mclean (PCP/Family) Departure Forms: Customer Survey General Discharge Information Prescriptions: Current Visit Scripts Polytrim (Polytrim Eye Drops) 1 GTT OPH Q6 #10 ML Nitrofurantoin Monohyd/M-Cryst (Macrobid 100 MG Capsule) 1 CAP PO BID #10 CAP Critical Care Note Critical Care Note Critical Care Time: non-applicable
[2017-10-30 14:02] LABS: ABSOLUTE BASOPHIL COUNT 0 /CUMM (0.0-0.2); ABSOLUTE EOSINOPHIL COUNT 0.2 /CUMM (0.0-0.7); ABSOLUTE GRANULOCYTE CT 2.9 /CUMM (1.4-6.5); ABSOLUTE LYMPH COUNT 1.2 /CUMM (1.2-3.4); ABSOLUTE MONOCYTE COUNT 0.4 /CUMM (0.10-0.60); BASOPHIL % 0.7 % (0.0-2.0); EOSINOPHIL % 3.4 % (0-5); GRANULOCYTE % 60.7 % (42.2-75.2); HEMATOCRIT 33.3 % (37-47); MEAN CORPUSCULAR HGB 29.7 PG (27.0-31.0); MEAN CORPUSCULAR HGB CONC 34.1 G/DL (33.0-37.0); MEAN CORPUSCULAR VOLUME 87.1 FL (81.0-99.0); MEAN PLATELET VOLUME 7.9 FL (7.4-10.4); PLATELET COUNT 302 /CUMM (130-400); RBC DISTRIBUTION WIDTH 14.6 % (11.5-14.5); RED BLOOD CELL CT 3.82 /CUMM (4.20-5.40); WHITE BLOOD CELL COUNT 4.8 /CUMM (4.8-10.8)
--- NOTE | 2017-10-30 15:37 | CT SCAN REPORT ---
EXAMINATION: CT ANGIOGRAM BRAIN WITH CONTRAST CLINICAL INFORMATION: Right-sided weakness for 3 days. COMPARISON: Head CT 04/12/2013. TECHNIQUE: Test bolus sequences followed by intravenous administration 95 mL of Optiray 320. Helical imaging was performed in the axial plane from the skull base to the skull vertex. Delayed postcontrast imaging of the head was also performed. The data was processed at the pathology technologist workstation for generation of MIP sequences. Angled MIPs and volume rendered reformatted images were also generated at an offline 3D workstation. DLP: 1876 mGy-cm FINDINGS: Head CT: There is no intracranial hemorrhage, large acute infarction, or mass lesion. There is extensive hypoattenuation throughout the bilateral cerebral white matter compatible with small vessel ischemic changes. There is mild diffuse prominence of the ventricles and sulci reflecting brain parenchymal volume loss. No abnormal enhancement is seen on the postcontrast images. The paranasal sinuses are clear. The mastoids and middle ear cavities are clear. The extracranial soft tissues are unremarkable. Head CTA: Atheromatous calcifications are present at the bilateral carotid siphons resulting in approximately 70% stenosis of the supraclinoid segment of the left internal carotid artery. The ACAs appear normal. The MCAs appear normal with symmetric collaterals. Atheromatous changes are noted along the bilateral intradural vertebral arteries without significant stenosis. A small basilar fenestration is noted. The basilar artery is patent. The oil expert are patent. The major dural venous sinuses appear normal. IMPRESSION: - No intracranial hemorrhage or CT evidence of large territory infarction. Moderate to severe small vessel ischemic changes throughout the bilateral cerebral white matter. 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 The major intracranial vessels are otherwise patent. No intracranial aneurysm is seen.
[2017-10-30] MEDS ORDERED: POLYTRIM EYE DR10 ML OPH ×2 (16:44→17:38)
[2017-10-30] MEDS ORDERED: MACROBID 100 M100 MG PO ×2 (16:45→17:38)
--- NOTE | 2017-10-30 20:45 | History & Physical ---
Valerie Rasheed 10/30/172043: General Information and HPI MD Statement: I have seen and personally examined NAKIA SCHAEFFER and documented this H&P. The patient is a 81 year old F who presented with a patient stated chief complaint of [lethargy and weakness]. Source of Information: patient Exam Limitations: no limitations Allergies/Medications Allergies: Coded Allergies: adhesive (SKIN RASH 05/25/17) oxycodone (From PERCOCET) (FEELS FUNNY 05/25/17) Home Med list Cholecalciferol (Vitamin D3) (Vitamin D) (Unknown Strength) TABLET (Unknown Dose) PO DAILY SUPPLEMENT (Reported) Citalopram Hydrobromide (Citalopram HBr) 20 MG TABLET 1 TAB PO DAILY MENTAL HEALTH (Reported) Furosemide 20 MG TABLET 1 TAB PO DAILY DIURETIC (Reported) Levothyroxine Sodium (Synthroid) 50 MCG TABLET 1 TAB PO DAILY hypothyroid Lisinopril 5 MG TABLET 1 TAB PO DAILY BP (Reported) Lorazepam 0.5 MG TABLET 1 TAB PO BIDP PRN ANXIETY (Reported) Meclizine HCl 25 MG TABLET 1 TAB PO DAILY VERTIGO (Reported) Nitrofurantoin Monohyd/M-Cryst (Macrobid 100 MG Capsule) 100 MG CAPSULE 1 CAP PO BID UTI Polytrim (Polytrim Eye Drops) 10,000 UNIT-1 MG/ML DROPS 1 GTT OPH Q6 pink eye Past History Travel History Traveled to [place] past 21 day No Medical History Neurological: NONE EENT: NONE Cardiovascular: hypertension, hyperlipidemia, systolic CHF Respiratory: NONE Gastrointestinal: NONE Hepatic: NONE Renal: RECURRENT UTI's Musculoskeletal: NONE Psychiatric: anxiety Endocrine: hypothyroidism Blood Disorders: NONE Cancer(s): NONE History of MRSA: No History of VRE: No History of CDIFF: No Surgical History Surgical History: non-contributory Past Family/Social History Family History Relations & Conditions if any SISTER MOTHER Relation not specified for: Cerebral hemorrhage FH: CABG (coronary artery bypass surgery) Psychosocial History Services at Home: Nursing ETOH Use: denies use Illicit Drug Use: denies illicit drug use Review of Systems Review of Systems Constitutional: Reports: see HPI. Exam & Diagnostic Data Last 24 Hrs of Vital Signs/I&O Vital Signs Date Time Temp Pulse Resp B/P B/P Pulse O2 O2 Flow FiO2 Mean Ox Delivery Rate 10/30 2130 98.0 74 20 148/72 96 Room Air 10/30 2113 98.0 84 18 168/83 96 Room Air 10/30 1704 98.2 86 18 170/88 96 Room Air 10/30 1353 98.0 86 18 174/73 95 Room Air 10/30 1246 98.2 88 18 150/90 94 Room Air Intake & Output 10/31 0800 09 0000 10/30 1600 Intake Total 120 Output Total 320 Balance -200 Intake, Oral 120 Output, Urine 320 Patient 91 lb 6 oz 98 lb Weight Weight Bed scale Measurement Method Assessment/Plan As Ranked By This Provider Problem List: 1. Hypokalemia 2. Physical deconditioning 3. Conjunctivitis Core Measures/Misc (11/10) Acute Coronary Syndrome ACS Diagnosis: No Congestive Heart Failure Congestive Heart Failure Diagnosis No Cerebrovascular Accident CVA/TIA Diagnosis: No VTE (View Protocol) VTE Risk Factors Age>40 No Mechanical VTE Prophylaxis d/t N/A MechProphylax Ordered No VTE Pharm Prophylaxis d/t NA PharmProphylax ordered Sepsis (View protocol) Sepsis Present: No If YES complete Sepsis Event Note If YES complete Sepsis Event Note Richy Timmons 10/30/172109: Core Measures/Misc (11/10) Sepsis (View protocol) If YES complete Sepsis Event Note If YES complete Sepsis Event Note Attending MD Review Statement Attending Statement Attending MD Statement: examined this patient, discuss w/resident/PA/ICT SECURITY SPECIALIST, agreed w/resident/PA/ICT SECURITY SPECIALIST Attending Assessment/Plan: Addendum by . Patient was seen and examined at bedside today ( 10/30/17 ) at 8PM. Reviewed the history physical done by the resident. Reviewed the past medical family, family, social history. ROS: 10 point system reviewed and negative except as described above. Additional details: Patient is feeling weak, walks very limited distance. Complaining of weakness in the legs and also swelling more than the right lower extremity. She also has secretions around her eyelids, some gritty sensation in both eyes. Patient lives independently as per the patient. Exam, labs, vitals per resident note. Assessment and plan: #Generalized weakness: Likely due to accommodation of deconditioning, possible UTI. Give ceftriaxone, follow urine cultures, get PT OT evaluation. Likely needs long-term facility on discharge. Prolonged QTC. Patient has a hypokalemia of 2.9. Replacing potassium also got magnesium. Repeat potassium after replacement, follow the magnesium level. Repeat EKG. #Hyperkalemia likely due to Lasix. Replace and monitor. #bilateral lower extremity edema right greater than left. etiology has had leg swelling is not clear has a normal echocardiogram in June 2017, has normal albumin. Get Doppler to rule out DVT. Continue with diuretics. #Chronic issues are hyperlipidemia, anxiety, depression, anemia, hypothyroidism- continue with home medications. Reviewed with the resident. Agree with the rest of the plan as per resident's note. Dr.Ravinder Ángel MD. Hospitalist. Pager: [phone], cell: [phone]. Susi SHELLEY,[facility] 10/31/17 0020: General Information and HPI MD Statement: I have seen and personally examined NAKIA SCHAEFFER and documented this H&P. The patient is a 81 year old F who presented with a patient stated chief complaint of [right lower leg weakness]. Source of Information: patient Exam Limitations: no limitations History of Present Illness: H&P done by resident Review of Systems Review of Systems Constitutional: Reports: see HPI. Exam & Diagnostic Data Last 24 Hrs of Vital Signs/I&O Vital Signs Date Time Temp Pulse Resp B/P B/P Pulse O2 O2 Flow FiO2 Mean Ox Delivery Rate 10/30 2130 98.0 74 20 148/72 96 Room Air 10/30 2113 98.0 84 18 168/83 96 Room Air 10/30 1704 98.2 86 18 170/88 96 Room Air 10/30 1353 98.0 86 18 174/73 95 Room Air 10/30 1246 98.2 88 18 150/90 94 Room Air Intake & Output 10/31 0800 10/31 0000 10/30 1600 Intake Total 120 Output Total 320 Balance -200 Intake, Oral 120 Output, Urine 320 Patient 91 lb 6 oz 98 lb Weight Weight Bed scale Measurement Method Assessment/Plan As Ranked By This Provider Problem List: 1. Hypokalemia Core Measures/Misc (11/10) Acute Coronary Syndrome ACS Diagnosis: No Congestive Heart Failure Congestive Heart Failure Diagnosis No VTE (View Protocol) VTE Risk Factors Age>40 No Mechanical VTE Prophylaxis d/t N/A MechProphylax Ordered No VTE Pharm Prophylaxis d/t NA PharmProphylax ordered Sepsis (View protocol) If YES complete Sepsis Event Note If YES complete Sepsis Event Note Resident Review Statement Resident Statement: examined this patient, discussed with international sales representative, reviewed EMR data (avail) Other Findings: 81 yo F with PMH of hypertension, hypothyroidism, vertigo, depression and anxiety presented to the ED with complaints of right lower extremity weakness going on for the past few days. The patient states that over the past few weeks she has been feeling more weak. She lives by herself and uses a rolling walker at baseline. She does have a VNA that comes for a couple of hours daily. She has been feeling like she has had the need to drag her right leg and that her feet simply 'stick to the ground'. She denies any recent falls. Also complains of inability to open the eyes completely due to drooping and discharge. She does experience dizziness and lightheadedness which is chronic. She denies any recent fevers or chills, headaches, sore throat, nausea, SOB, chest pain, abdominal pain but endorses burning with urination. ROS: As per HPI Physical Exam: General Appearance: frail, thin, mild distress Head: atraumatic, normocephalic Eyes: Bilateral: normal appearance, PERRLA, clear discharge present on both eyelids Ears, Nose, Throat: normal hearing and speech Respiratory: normal breath sounds, chest non-tender, no respiratory distress Cardiovascular: regular rate/rhythm, normal S1 and S2, systolic murmur Gastrointestinal: soft, non-tender Extremities: b/l lower extremity edema R>L Skin: intact, normal color, warm/dry UA is positive for nitrites. While it has moderate epithelial cells there are 5- 10 WBCs which is suggestive of UTI. She does have urinary symptoms. Assessment: 1. Generalized Deconditioning 2. Hypokalemia 3. Conjuctivitis 4. ? UTI Plan: * Admit patient to general medicine floor. * Monitor electrolytes and replete as necessary. * Continue Ceftriaxone 1g daily for 3 days * Follow urine culture * LE Doppler to r/o DVT in right leg * Ciprofloxacin eye drops q2 hours. * PT/OT * Diet: Regular * DVT Prophylaxis: SC Lovenox * Code: DNR/DNI
[2017-10-30 21:30] VITALS: BP 148/72
[2017-10-31 07:09] VITALS: BP 160/70
--- NOTE | 2017-10-31 07:17 | PN- Housestaff ---
Agustín Rasheed 10/31/17 0716: Subjective Follow-up For: Generalized deconditioning, hypokalemia, conjunctivitis, UTI, right arm decreased movement, weakness and right lower extremity. Subjective: Patient seen and examined at bedside. She is complaining of pain and discharge from her left eyes. She said that I am unable to open my left eyes. She said I am leaving by myself and now it is difficult for me to leave by myself and do my daily activities. She is complaining of pain in her right arm and shoulder. She she added that I cannot move my right arm. She also complaining of burning sensation in her coccyx area. She denies fever, chills, chest pain, palpitation , diarrhea, constipation, burning micturition. Review of Systems Constitutional: Reports: see HPI. Objective Last 24 Hrs of Vital Signs/I&O Vital Signs Date Time Temp Pulse Resp B/P B/P Pulse O2 O2 Flow FiO2 Mean Ox Delivery Rate 10/31 1408 98.3 83 15 148/73 99 Room Air 10/31 0926 80 160/70 10/31 0709 97.5 80 18 160/70 99 10/30 2130 98.0 74 20 148/72 96 Room Air 10/30 2113 98.0 84 18 168/83 96 Room Air Intake & Output 10/31 1600 10/31 0800 10/31 0000 Intake Total 620 320 120 Output Total 200 320 Balance 420 320 -200 Intake, IV 200 Intake, Oral 620 120 120 Number 0 Bowel Movements Output, Urine 200 320 Patient 91 lb 6 oz 91 lb 6 oz Weight Weight Bed scale Bed scale Measurement Method Physical Exam General Appearance: Alert, Oriented X3, Cooperative, No Acute Distress Cardiovascular: Normal S1, Normal S2, No Murmurs Lungs: Clear to Auscultation, Normal Air Movement Abdomen: Soft, No Tenderness Extremities: No Clubbing, No Cyanosis, Normal Pulses, REDNESS IN BILATERAL LOWER EXTREMITIES, AND WEAKNES IN RIGHT LOWER EXTREMITY. Assessment/Plan Assessment: 81-year-old female with past medical history of hypothyroidism, depression, anxiety, vertigo, hypertension presented to emergency department with the chief complaint of weakness and right lower extremity, right upper extremity, discharge from her left eye. At the time of presentation to emergency department her vitals and labs are given below Vitals: -Blood pressure 148/72, pulse rate 74, temperature 98, respiratory rate 20, SPO2 96 Labs: -Her labs are significant for hypokalemia -Urinalysis is significant for urinary tract infection Ultrasonography of the right lower extremity: IMPRESSION: No evidence of deep venous thrombosis involving the right lower extremity. CT head: IMPRESSION: - No intracranial hemorrhage or CT evidence of large territory infarction. Moderate to severe small vessel ischemic changes throughout the bilateral cerebral white matter. 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 The major intracranial vessels are otherwise patent. No intracranial aneurysm is seen. Problems list; *Left eye conjunctivitis *Right upper extremity, right lower extremity weakness *Urinary tract infection *Hypokalemia Plan: -Ointment for conjunctivitis will be applied denies -Ceftriaxone started for urinary tract infection -Hypokalemia resolved -Right lower extremity ultrasonography is normal for DVT, Hanson's cyst -We will follow the social economist and community case manager recommendation for placing her in short-term or long-term rehab -Fall precaution -DVT Prophylaxis: SC Loveno -Code: DNR/DN Problem List: 1. Conjunctivitis 2. Physical deconditioning 3. Hypokalemia 4. Acute atopic conjunctivitis 5. Weakness 6. Pedal edema 7. Full code status 8. UTI (urinary tract infection) 9. Hypothyroidism Pain Ratin Pain Location: Left eye Pain Goal: Remain pain free Pain Plan: Pain management [facility] [employer] & Rationales: ROSA MARIA Jaimie Jeong 10/31/17 1509: Attending MD Review Statement Attending Statement Attending MD Statement: examined this patient, discuss w/resident/PA/RADIOACTIVE WASTE DISPOSAL DISPATCHER, agreed w/resident/PA/RADIOACTIVE WASTE DISPOSAL DISPATCHER, reviewed EMR data (avail), discussed with nursing, discussed with case mgmt Attending Assessment/Plan: 81 yo F with PMH of hypertension, hypothyroidism, vertigo, depression and anxiety presented to the ED with complaints of right lower extremity weakness going on for the past few days. The patient states that over the past few weeks she has been feeling more weak. She lives by herself and uses a rolling walker at baseline. She does have a VNA that comes for a couple of hours daily. UTI- cont on ceftriaxone and f/u on urine cultures. Hypokalemia- Resolved. Deconditioning- will get PT consult and will have community case manager talk to pt to evaluate increased needs for STR placement. LE edema- will get doppler LE conjunctivitis- cont abx drops. improving. f/u clinically.
[2017-10-31 08:19] LABS: ABSOLUTE BASOPHIL COUNT 0 /CUMM (0.0-0.2); ABSOLUTE EOSINOPHIL COUNT 0.2 /CUMM (0.0-0.7); ABSOLUTE GRANULOCYTE CT 4.6 /CUMM (1.4-6.5); ABSOLUTE LYMPH COUNT 1.6 /CUMM (1.2-3.4); ABSOLUTE MONOCYTE COUNT 0.6 /CUMM (0.10-0.60); BASOPHIL % 0.6 % (0.0-2.0); EOSINOPHIL % 2.3 % (0-5); HEMATOCRIT 35.2 % (37-47); MEAN CORPUSCULAR HGB 29.6 PG (27.0-31.0); MEAN CORPUSCULAR HGB CONC 33.5 G/DL (33.0-37.0); MEAN CORPUSCULAR VOLUME 88.5 FL (81.0-99.0); MEAN PLATELET VOLUME 8.4 FL (7.4-10.4); PLATELET COUNT 294 /CUMM (130-400); RBC DISTRIBUTION WIDTH 14.7 % (11.5-14.5); RED BLOOD CELL CT 3.98 /CUMM (4.20-5.40)
[2017-10-31 14:08] VITALS: BP 148/73
--- NOTE | 2017-10-31 14:43 | Discharge Summary ---
Visit Information Visit Dates Admission Date: 10/30/17 Discharge Date: 11/05/2017 Hospital Course Course Attending Physician: Jaimie Jeong MD [facility]: Ms. Gamboa is an 81 yo F with PMH of hypertension, hypothyroidism, vertigo, depression and anxiety presented to the ED with complaints of right lower extremity weakness going on for the past few days. The patient states that over the past few weeks she has been feeling more weak. She lives by herself and uses a rolling walker at baseline. She does have a VNA that comes for a couple of hours daily. She has been feeling like she has had the need to drag her right leg and that her feet simply 'stick to the ground'. She denies any recent falls. Also complains of inability to open the eyes completely due to drooping and discharge. She does experience dizziness and lightheadedness which is chronic. She denies any recent fevers or chills, headaches, sore throat, nausea, SOB, chest pain, abdominal pain but endorses burning with urination. ROS: As per HPI Physical Exam: General Appearance: frail, thin, mild distress Head: atraumatic, normocephalic Eyes: Bilateral: normal appearance, PERRLA, clear discharge present on both eyelids Ears, Nose, Throat: normal hearing and speech Respiratory: normal breath sounds, chest non-tender, no respiratory distress Cardiovascular: regular rate/rhythm, normal S1 and S2, systolic murmur Gastrointestinal: soft, non-tender Extremities: b/l lower extremity edema R>L Skin: intact, normal color, warm/dry UA is positive for nitrites. While it has moderate epithelial cells there are 5- 10 WBCs which is suggestive of UTI. She does have urinary symptoms. Assessment: #UTI #Generalized Deconditioning #Hypokalemia #Conjuctivitis #PMH of hypertension, hypothyroidism, vertigo, depression and anxiety Patient was admitted to [facility] floor and started on ceftriaxone for 3 days for UTI w / urinary symptoms. LE doppler had been done to rule out DVT. Patient was continued on home meds as well. LE Dopper had ruled out DVT in right leg. PT eval recommended STR. Patient's HTN was not adequately controlled with home meds dose, will increase to Lisinopril 10mg daily on discharge. Wound care instruction: please encourage strict offloading of affected area wtih q 1 hour repositioning wib side to side - apply vitamin a+d ointment qs and PRN after inc episodes - please have nutrition consult to eval if pt is receiving optimal nutrition, as she is very thin and fraile Diet: Regular DVT Prophylaxis: SC Lovenox Code: DNR/DNI Allergies: Coded Allergies: adhesive (SKIN RASH 05/25/17) oxycodone (From PERCOCET) (FEELS FUNNY 05/25/17) Pertinent Lab Results: SERVICE DATE: 10/30/17-1312 EXAM TYPE: CAT - CT HEAD ANGIOGRAM IMPRESSION: - No intracranial hemorrhage or CT evidence of large territory infarction. Moderate to severe small vessel ischemic changes throughout the bilateral cerebral white matter. 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 The major intracranial vessels are otherwise patent. No intracranial aneurysm is seen. SERVICE DATE: 10/31/17- EXAM TYPE: US - US-DUPLEX VENOUS EXTREM UNI IMPRESSION: No evidence of deep venous thrombosis involving the right lower extremity. SERVICE DATE: 10/31/17- EXAM TYPE: RAD - XRY-SHOULDER COMPLETE-RIGHT IMPRESSION: Mild osteoarthritis. No fracture or dislocation. Disposition Summary Disposition Principal Diagnosis: #UTI #Generalized Deconditioning #Hypokalemia, resolved #Conjuctivitis #PMH of hypertension, hypothyroidism, vertigo, depression and anxiety Additional Diagnosis: as above Discharge Disposition: SNF Discharge Instructions General Discharge Information Code Status: Do Not Resucitate/Intubat Patient's Diet: As tolerated Patient's Activity: as tolerated Follow-Up Instructions/Appts: - Please follow up with your primary care physician within 1-2 weeks of discharge. Inform your primary care physician of this admission to [facility]. - Continue your current medications per discharge instructions. - Please watch for these problems: Fever, Chills, Nausea, Vomiting, Shortness of Breath, Productive Cough, Chest Pain/Discomfort, Abdominal Pain, Active Bleeding or Bloody urine/stool. Medications at Discharge Discharge Medications: Continue taking these medications: Furosemide (Furosemide) 20 MG TABLET 1 Tablet ORAL DAILY Qty = 30 Comments: Last Taken: 11/05/17 Time: 8:00 am Lorazepam (Lorazepam) 0.5 MG TABLET 1 Tablet ORAL 2 x Daily as needed as needed for ANXIETY Qty = 30 Comments: NOT GIVEN Meclizine HCl (Meclizine HCl) 25 MG TABLET 1 Tablet ORAL DAILY Qty = 30 Comments: Last Taken: 11/05/17 Time: 0900 Citalopram Hydrobromide (Citalopram HBr) 20 MG TABLET 1 Tablet ORAL DAILY Qty = 30 Comments: Last Taken: 11/05/17 Time: 8:00 am Cholecalciferol (Vitamin D3) (Vitamin D) (Unknown Strength) TABLET Unknown Dose ORAL DAILY Comments: NOT GIVEN Start taking the following new medications: Polytrim (Polytrim Eye Drops) 10,000 UNIT-1 MG/ML DROPS 1 Drop In the eye EVERY SIX HOURS Qty = 10 No Refills Comments: Last Taken: 11/05/17 Time: 1000 The following medications have been changed: Old: Lisinopril (Lisinopril) 5 MG TABLET 1 Tablet ORAL DAILY Qty = 30 New: Lisinopril (Lisinopril) 5 MG TABLET 2 Tablet ORAL DAILY Qty = 30 Comments: Last Taken: 11/05/17 Time: 8:00 am Old: Levothyroxine Sodium (Synthroid) 50 MCG TABLET 1 Tablet ORAL DAILY Qty = 30 New: Levothyroxine Sodium (Synthroid) 50 MCG TABLET 2 Tablet ORAL DAILY Qty = 30 Comments: Last Taken: 11/05/17 Time: 9:00 AM Copies To: Michell Snyder MD Attending MD Review Statement Documenting Attending: Owen Barr MD
--- NOTE | 2017-10-31 17:17 | ULTRASOUND REPORT ---
EXAMINATION: RIGHT LOWER EXTREMITY DEEP VENOUS ULTRASOUND CLINICAL INFORMATION: Right lower extremity swelling and edema COMPARISON: Bilateral lower extremity DVT study 05/26/2017 TECHNIQUE: Duplex Doppler imaging with compression maneuvers were performed of the right lower extremity deep venous system. Examination limited secondary to poor patient mobility. FINDINGS: The visualized common femoral, femoral and popliteal veins demonstrate normal compressibility and color flow without evidence of venous thrombosis. Visualized portions of the calf veins demonstrate normal color fill-in suggesting patency. There is no evidence of a Hanson's cyst. IMPRESSION: No evidence of deep venous thrombosis involving the right lower extremity.
--- NOTE | 2017-10-31 19:25 | RADIOLOGY REPORT ---
EXAMINATION: XR SHOULDER, RIGHT CLINICAL INFORMATION: Right shoulder pain COMPARISON: CT chest 09/02/2011 TECHNIQUE: Three views of the right shoulder. FINDINGS: Mild osteoarthritis is again noted. No fracture or dislocation. Posterior scarring at the right lung apex is unchanged. Atherosclerotic peripheral vascular disease. Prior CT with coronary disease. IMPRESSION: Mild osteoarthritis. No fracture or dislocation.
[2017-10-31 21:24] VITALS: BP 151/75
[2017-11-01 06:21] VITALS: BP 182/92
[2017-11-01 08:21] LABS: ABSOLUTE BASOPHIL COUNT 0 /CUMM (0.0-0.2); ABSOLUTE EOSINOPHIL COUNT 0 /CUMM (0.0-0.7); ABSOLUTE GRANULOCYTE CT 8.1 /CUMM (1.4-6.5); ABSOLUTE LYMPH COUNT 0.6 /CUMM (1.2-3.4); ABSOLUTE MONOCYTE COUNT 0.4 /CUMM (0.10-0.60); BASOPHIL % 0.2 % (0.0-2.0); EOSINOPHIL % 0.1 % (0-5); HEMATOCRIT 38.2 % (37-47); MEAN CORPUSCULAR HGB 29.5 PG (27.0-31.0); MEAN CORPUSCULAR HGB CONC 33.4 G/DL (33.0-37.0); MEAN CORPUSCULAR VOLUME 88.4 FL (81.0-99.0); MEAN PLATELET VOLUME 8.5 FL (7.4-10.4); PLATELET COUNT 304 /CUMM (130-400); RBC DISTRIBUTION WIDTH 14.6 % (11.5-14.5); RED BLOOD CELL CT 4.32 /CUMM (4.20-5.40)
--- NOTE | 2017-11-01 08:47 | PN- Housestaff ---
See Addendum Subjective Follow-up For: Conjuctivitis Right sided weakness Urinary tract infection Subjective: Patient was seen and examined at bedside. She did not have any fresh complaints. Her eye pain and discharge are better today. She is able to open her eyes. Denies fever, chills, nausea, weakness, palpitations. Review of Systems Constitutional: Reports: see HPI. Objective Last 24 Hrs of Vital Signs/I&O Vital Signs Date Time Temp Pulse Resp B/P B/P Pulse O2 O2 Flow FiO2 Mean Ox Delivery Rate 11/01 0621 98.0 90 20 182/92 97 10/31 2124 98.0 79 18 151/75 99 Room Air 10/31 1408 98.3 83 15 148/73 99 Room Air 10/31 0926 80 160/70 Intake & Output 11/01 1600 11/01 0800 11/01 0000 Intake Total 130 Output Total 650 Balance -520 Intake, IV 10 Intake, Oral 120 Output, Urine 650 Patient 93 lb 2 oz Weight Physical Exam General Appearance: Alert, Oriented X3, Cooperative, No Acute Distress Neck: Supple Cardiovascular: Regular Rate, Normal S1, Normal S2 Lungs: Clear to Auscultation Abdomen: Normal Bowel Sounds, Soft, No Tenderness Extremities: No Edema, Normal Pulses Assessment/Plan Assessment: 81-year-old female with past medical history of hypothyroidism, depression, anxiety, vertigo, hypertension is admitted to the Gen Med service with the chief complaint of weakness and right lower extremity, right upper extremity, discharge from her left eye. Ultrasonography of the right lower extremity: IMPRESSION: No evidence of deep venous thrombosis involving the right lower extremity. CT head: IMPRESSION: - No intracranial hemorrhage or CT evidence of large territory infarction. Moderate to severe small vessel ischemic changes throughout the bilateral cerebral white matter. 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 The major intracranial vessels are otherwise patent. No intracranial aneurysm is seen. Problems list; 1.Left eye conjunctivitis 2.Right upper extremity, right lower extremity weakness 3.Urinary tract infection 4.Hypokalemia 5.Hyperrtension Plan: 1. Left eye conjunctivitis - Ocuflox Ointment for conjunctivitis -Would follow up for worsening of symptoms 2. Urinary tract infection -Ceftriaxone started for urinary tract infection -No blood or urine cultures sent -Afebrile with a normal white cell count 3. Hypokalemia (resolved) -K:3.7 -Would follow up BEP 4. Right sided weakness -Right lower extremity ultrasonography is normal for DVT, Hanson's cyst -No evidence of infarct on the CT scan -The patient could benefit from short term rehab placement. Case mmanager to follow -Fall precautions in place DVT Prophylaxis: SORAYA Young Code: DNR/DN Problem List: 1. Conjunctivitis 2. Physical deconditioning 3. Hypokalemia Pain Ratin Pain Location: none Pain Goal: Remain pain free Pain Plan: none Tomorrow's Labs & Rationales: cbc and bep
[2017-11-01 09:40] LABS: WHITE BLOOD CELL COUNT 9.1 /CUMM (4.8-10.8)
[2017-11-01 14:37] VITALS: BP 160/80
[2017-11-01 21:07] VITALS: BP 162/82
[2017-11-02 06:19] VITALS: BP 184/82
[2017-11-02 08:18] LABS: ABSOLUTE BASOPHIL COUNT 0 /CUMM (0.0-0.2); ABSOLUTE EOSINOPHIL COUNT 0.1 /CUMM (0.0-0.7); ABSOLUTE GRANULOCYTE CT 5.7 /CUMM (1.4-6.5); ABSOLUTE LYMPH COUNT 1.1 /CUMM (1.2-3.4); ABSOLUTE MONOCYTE COUNT 0.6 /CUMM (0.10-0.60); BASOPHIL % 0.5 % (0.0-2.0); EOSINOPHIL % 0.8 % (0-5); GRANULOCYTE % 76.7 % (42.2-75.2); HEMATOCRIT 35.5 % (37-47); MEAN CORPUSCULAR HGB 29.3 PG (27.0-31.0); MEAN CORPUSCULAR HGB CONC 33.4 G/DL (33.0-37.0); MEAN CORPUSCULAR VOLUME 87.8 FL (81.0-99.0); MEAN PLATELET VOLUME 8.7 FL (7.4-10.4); PLATELET COUNT 291 /CUMM (130-400); RBC DISTRIBUTION WIDTH 14.8 % (11.5-14.5); RED BLOOD CELL CT 4.05 /CUMM (4.20-5.40); WHITE BLOOD CELL COUNT 7.4 /CUMM (4.8-10.8)
--- NOTE | 2017-11-02 08:52 | PN- Housestaff ---
Lesly Sanders 11/02/17 0851: Subjective Follow-up For: Conjuctivitis General Deconditioning Subjective: Patient was seen and examined at bedside. She has not been drinking enough fluids for the fear of having to go to the bathroom. Denies fever, chills, nausea, vomiting. Review of Systems Constitutional: Reports: see HPI. Objective Last 24 Hrs of Vital Signs/I&O Vital Signs Date Time Temp Pulse Resp B/P B/P Pulse O2 O2 Flow FiO2 Mean Ox Delivery Rate 11/02 2116 98.9 79 20 162/71 97 Room Air 11/02 1431 99.0 76 20 130/56 98 Room Air 11/02 0829 85 184/82 11/02 0800 Room Air 11/02 0619 97.9 85 20 184/82 98 Intake & Output 11/02 1600 11/02 0800 11/02 0000 Intake Total 475 110 Output Total 500 200 600 Balance -25 -90 -600 Intake, IV 10 Intake, Oral 475 100 Number 1 Bowel Movements Output, Urine 500 200 600 Patient 84 lb 9 oz 93 lb 2.01 oz Weight Weight Bed scale Measurement Method Physical Exam General Appearance: Alert, Oriented X3, Cooperative HEENT: swelling under the right eye, erythema in the left conjuctiva Neck: No JVD Cardiovascular: Regular Rate, Normal S1, Normal S2 Lungs: Clear to Auscultation Assessment/Plan Assessment: 81-year-old female with past medical history of hypothyroidism, depression, anxiety, vertigo, hypertension is admitted to the Gen Med service with the chief complaint of weakness and right lower extremity, right upper extremity, discharge from her left eye. Ultrasonography of the right lower extremity: IMPRESSION: No evidence of deep venous thrombosis involving the right lower extremity. CT head: IMPRESSION: - No intracranial hemorrhage or CT evidence of large territory infarction. Moderate to severe small vessel ischemic changes throughout the bilateral cerebral white matter. 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 The major intracranial vessels are otherwise patent. No intracranial aneurysm is seen. Problems list; 1.Left eye conjunctivitis 2.Right upper extremity, right lower extremity weakness 3.Urinary tract infection 4.Hypokalemia 5.Hyperrtension Plan: 1. Left eye conjunctivitis - Ocuflox Ointment for conjunctivitis -Would follow up for worsening of symptoms 2. Urinary tract infection -Ceftriaxone started for urinary tract infection -No blood or urine cultures sent -Afebrile with a normal white cell count 3. Hypokalemia (resolved) -K:3.7 -Would follow up BEP 4. Right sided weakness -Right lower extremity ultrasonography is normal for DVT, Hanson's cyst -No evidence of infarct on the CT scan -The patient could benefit from short term rehab placement. Case mmanager to follow -Fall precautions in place DVT Prophylaxis: SORAYA Young Code: DNR/DNI Problem List: 1. Conjunctivitis 2. Physical deconditioning 3. Hypokalemia Pain Ratin Pain Location: none Pain Goal: Remain pain free Pain Plan: pathway Tomorrow's Labs & Rationales: cbc and bep Jaimie Jeong 11/02/17 1526: Attending MD Review Statement Attending Statement Attending MD Statement: examined this patient, discuss w/resident/PA/SHEET METAL DUCT INSTALLER HELPER, agreed w/resident/PA/SHEET METAL DUCT INSTALLER HELPER, reviewed EMR data (avail), discussed with nursing Attending Assessment/Plan: 81-year-old female with past medical history of hypothyroidism, depression, anxiety, vertigo, hypertension is admitted to the Gen Med service with the chief complaint of gen weakness discharge from her left eye. UTI- cont ceftriaxone. Conjunctivitis- on ofloxacin drops. cont with that. Eyes look improved Case management working on STR placement.
[2017-11-02 14:31] VITALS: BP 130/56
[2017-11-02 21:17] VITALS: BP 162/71
[2017-11-03 06:06] VITALS: BP 181/73
--- NOTE | 2017-11-03 07:14 | PN- Housestaff ---
Agustín Rasheed 11/03/17 0713: Subjective Follow-up For: Left eye conjunctivitis, right shoulder pain, generalized deconditioning, hypokalemia, UTI Subjective: Examined at bedside. She was still complaining of pain in her right shoulder. She is a little bit paranoid and she is saying she wanted to call police. She is concerned that somebody is getting some poison in my food. She is oriented to time place person. She denies fever, chills, chest pain, palpitation, abdominal pain, diarrhea, constipation. Review of Systems Constitutional: Reports: see HPI. Objective Last 24 Hrs of Vital Signs/I&O Vital Signs Date Time Temp Pulse Resp B/P B/P Pulse O2 O2 Flow FiO2 Mean Ox Delivery Rate 11/03 0742 84 18111/03 0606 97.1 84 20 97 11/02 2117 98.9 79 20 162/71 97 Room Air 11/02 1431 99.0 76 20 130/56 98 Room Air Intake & Output 11/03 1600 11/03 0800 11/03 0000 Intake Total 120 560 Output Total 400 250 Balance -280 310 Intake, Oral 120 560 Number 2 Bowel Movements Output, Urine 400 250 Patient 86 lb 3 oz Weight Weight Bed scale Measurement Method Physical Exam General Appearance: Alert, Oriented X3, Cooperative, No Acute Distress Cardiovascular: Normal S1, Normal S2 Lungs: Clear to Auscultation, Normal Air Movement Abdomen: Normal Bowel Sounds, Soft, No Tenderness Extremities: No Clubbing, No Cyanosis, Normal Pulses Assessment/Plan Assessment: 81-year-old female with past medical history of hypothyroidism, depression, anxiety, vertigo, hypertension presented to emergency department with the chief complaint of weakness and right lower extremity, right upper extremity, discharge from her left eye. At the time of presentation to emergency department her vitals and labs are given below Vitals: -Blood pressure 148/72, pulse rate 74, temperature 98, respiratory rate 20, SPO2 96 Labs: -Her labs are significant for hypokalemia -Urinalysis is significant for urinary tract infection Ultrasonography of the right lower extremity: IMPRESSION: No evidence of deep venous thrombosis involving the right lower extremity. CT head: IMPRESSION: - No intracranial hemorrhage or CT evidence of large territory infarction. Moderate to severe small vessel ischemic changes throughout the bilateral cerebral white matter. 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 The major intracranial vessels are otherwise patent. No intracranial aneurysm is seen. Problems list; *Left eye conjunctivitis *Right upper extremity, right lower extremity weakness *Urinary tract infection *Hypokalemia *Paranaud dellusion *Hypertension Plan: Conjunctivitis: -Ofloxacin ointment for conjunctivitis will be a flight every 2 hours -Her eye improved compared to yesterday UTI: -She completed ceftriaxone dose for UTI -We will hold subtraction for now -will encourage patient oral hydration -Clean personal hygiene Hypokalemia: -Hypokalemia resolved Paranoid Delusion: -Patient having recent onset of paranoid delusions -She said that somebody is going to be add poison in my food -Contacted psychiatr for recommendationy -Psychiatry recommended: -Risperidone 0.25 mg . -checking TSH -Ordered followed *Hypertension: -Since 2 days her hypertension is on higher side -She is taking 20 mg of Lasix and 5 mg of lisinopril -Lisinopril dose increased to 10 mg we will follow further *Right lower extremity ultrasonography is normal for DVT, Hanson's cyst -Fall precaution -DVT Prophylaxis: SC Loveno -Code: DNR/DNR Problem List: 1. Generalized weakness 2. Conjunctivitis 3. Physical deconditioning 4. Hypokalemia 5. Lower extremity edema 6. Hypothyroidism Pain Ratin Pain Location: No pain Pain Goal: Remain pain free Pain Plan: Pain management pathway Tomorrow's Labs & Rationales: Urinalysis, CBCs Owen Barr 11/03/17 1135: Attending MD Review Statement Attending Statement Attending MD Statement: examined this patient, discuss w/resident/PA/NECK CUTTER, agreed w/resident/PA/NECK CUTTER, discussed with family, reviewed EMR data (avail), discussed with nursing, discussed with case mgmt, reviewed images, amended to note Attending Assessment/Plan: 81-year-old female with past medical history of hypothyroidism, depression, anxiety, vertigo, hypertension is admitted to the Gen Med service with the chief complaint of gen weakness and possbile dementia. Her daughter bedside complaining she is more paranoid than usual. Will obtain pyshc consult. UTI culture remain negative. abx completed course. Conjunctivitis resolved. Case management working on STR placement.
--- NOTE | 2017-11-03 08:22 | Patient Discharge Instructions ---
Discharge Instructions General Discharge Information Special Instructions: - Please follow up with your primary care physician within 1-2 weeks of discharge. Inform your primary care physician of this admission to [facility]. - Continue your current medications per discharge instructions. - Please watch for these problems: Fever, Chills, Nausea, Vomiting, Shortness of Breath, Productive Cough, Chest Pain/Discomfort, Abdominal Pain, Active Bleeding or Bloody urine/stool. Diet Continue normal diet: Yes Acute Coronary Syndrome Inclusion Criteria At DC or during hospital stay patient has or had the following: ACS DIAGNOSIS No Discharge Core Measures Meds if any: Prescribed or Continued at Discharge Meds if any: NOT Prescribed or Continued at Discharge Congestive Heart Failure Inclusion Criteria At DC or during hospital stay patient has or had the following: CHF DIAGNOSIS No Discharge Core Measures Meds if any: Prescribed or Continued at Discharge Meds if any: NOT Prescribed or Continued at Discharge Cerebrovascular accident Inclusion Criteria At DC or during hospital stay patient has or had the following: CVA/TIA Diagnosis No Discharge Core Measures Meds if any: Prescribed or Continued at Discharge Meds if any: NOT Prescribed or Continued at Discharge Venous thromboembolism Inclusion Criteria VTE Diagnosis No VTE Type NONE VTE Confirmed by (Test) NONE Discharge Core Measures - Per Current guidelines, there needs to be overlap - treatment for the first 5 days of Warfarin therapy. - If discharged on Warfarin prior to 5 days of - overlap therapy, the patient will need to be - assessed for post discharge needs including - *Post discharge parental anticoagulation - *Warfarin and/or parental anticoagulation education - *Follow up date to check INR post discharge At least 5 days overlap therapy as Inpatient No Meds if any: Prescribed or Continued at Discharge Note: Overlap Therapy is Warfarin and Anticoagulant Meds if any: NOT Prescribed or Continued at Discharge
--- NOTE | 2017-11-03 08:48 | PN- Student ---
Subjective Subjective: This is an 81 y/o female with a PMH of HTN, hypothyroidism, vertigo, depression, and anxiety. She presented with right sided weakness and discharge from her left eye. Allergies: * adhesive (SKIN RASH 05/25/17) * oxycodone (From PERCOCET) (FEELS FUNNY 05/25/17) Medications: * Cholecalciferol (Vitamin D3) (Vitamin D) (Unknown Strength) TABLET (Unknown Dose) PO DAILY SUPPLEMENT (Reported) * Citalopram Hydrobromide (Citalopram HBr) 20 MG TABLET 1 TAB PO DAILY MENTAL HEALTH (Reported) * Furosemide 20 MG TABLET 1 TAB PO DAILY DIURETIC (Reported) * Levothyroxine Sodium (Synthroid) 50 MCG TABLET 1 TAB PO DAILY hypothyroid * Lisinopril 5 MG TABLET 1 TAB PO DAILY BP (Reported) * Lorazepam 0.5 MG TABLET 1 TAB PO BIDP PRN ANXIETY (Reported) * Meclizine HCl 25 MG TABLET 1 TAB PO DAILY VERTIGO (Reported) * Nitrofurantoin Monohyd/M-Cryst (Macrobid 100 MG Capsule) 100 MG CAPSULE 1 CAP PO BID UTI * Polytrim (Polytrim Eye Drops) 10,000 UNIT-1 MG/ML DROPS 1 GTT OPH Q6 pink eye Surgical History: * unremarkable Family History: * CABG & cerebral hemorrhage - relation to specific family member not specified Social History: * denies alcohol, tobacco, and recreational drug use Objective Objective: Heart Exam * normal S1/S2 were heard without any signs of murmurs or gallops Lung Exam * clear to ascultation bilaterally without any signs of wheezing, rales, or crackles Review of Systems: * unremarkable She has had a normocytic anemia since admission UA showed Hazy urine that was Nitrite positive with WBC's and leukocyte esterases Head CT showed 70% stenosis of the left internal carotid a. without evidence of intracranial hemorrhage or large territory infarction. U/S of Right Lower Extremity was unremarkable Results Results: Vital Signs Date Time Temp Pulse Resp B/P B/P Pulse O2 O2 Flow FiO2 Mean Ox Delivery Rate 11/03 1041 85 144/67 11/03 0800 Room Air 11/03 0742 84 181/73 11/03 0606 97.1 84 20 181/73 97 11/02 2117 98.9 79 20 162/71 97 Room Air 09/09 1431 99.0 76 20 130/56 98 Room Air Intake & Output 11/03 1600 11/03 0800 11/03 0000 Intake Total 120 560 Output Total 150 400 250 Balance -150 -280 310 Intake, Oral 120 560 Number 2 Bowel Movements Output, Urine 150 400 250 Patient 86 lb 3 oz Weight Weight Bed scale Measurement Method Laboratory Tests 11/02/17 0654: Anion Gap 4 L, Estimated GFR > 60, BUN/Creatinine Ratio 20.0, CBC w Diff NO MAN DIFF REQ, RBC 4.05 L, MCV 87.8, MCH 29.3, MCHC 33.4, RDW 14.8 H, MPV 8.7, Gran % 76.7 H, Lymphocytes % 14.6 L, Monocytes % 7.4, Eosinophils % 0.8, Basophils % 0.5, Absolute Granulocytes 5.7, Absolute Lymphocytes 1.1 L, Absolute Monocytes 0.6, Absolute Eosinophils 0.1, Absolute Basophils 0 11/01/17 0650: Anion Gap 7, Estimated GFR > 60, BUN/Creatinine Ratio 18.6, CBC w Diff NO MAN DIFF REQ, RBC 4.32, MCV 88.4, MCH 29.5, MCHC 33.4, RDW 14.6 H, MPV 8.5, Gran % 89.0 H, Lymphocytes % 6.8 L, Monocytes % 3.9, Eosinophils % 0.1, Basophils % 0.2, Absolute Granulocytes 8.1 H, Absolute Lymphocytes 0.6 L, Absolute Monocytes 0.4, Absolute Eosinophils 0, Absolute Basophils 0 Assessment/Plan Assessment: This is an 81 y/o female with a PMH of HTN, hypothyroidism, vertigo, depression, and anxiety. She presented with right sided weakness and discharge from her left eye. Plan: UTI * IV ceftriaxone Conjuncitivits of Left Eye * Ocuflox HTN * increased Lisinopril from 5mg to 10mg daily PT recommends short term rehab
[2017-11-03] MEDS ORDERED: LISINOPRIL5 M1 PO (09:05)
[2017-11-03 10:41] VITALS: BP 144/67
[2017-11-03 11:37] LABS: ABSOLUTE BASOPHIL COUNT 0 /CUMM (0.0-0.2); ABSOLUTE EOSINOPHIL COUNT 0.1 /CUMM (0.0-0.7); ABSOLUTE GRANULOCYTE CT 4.8 /CUMM (1.4-6.5); ABSOLUTE LYMPH COUNT 0.9 /CUMM (1.2-3.4); ABSOLUTE MONOCYTE COUNT 0.4 /CUMM (0.10-0.60); BASOPHIL % 0.5 % (0.0-2.0); GRANULOCYTE % 78.1 % (42.2-75.2); HEMATOCRIT 37.8 % (37-47); MEAN CORPUSCULAR HGB 29.4 PG (27.0-31.0); MEAN CORPUSCULAR HGB CONC 33.7 G/DL (33.0-37.0); MEAN CORPUSCULAR VOLUME 87.5 FL (81.0-99.0); MEAN PLATELET VOLUME 8.9 FL (7.4-10.4); PLATELET COUNT 339 /CUMM (130-400); RBC DISTRIBUTION WIDTH 14.7 % (11.5-14.5); RED BLOOD CELL CT 4.32 /CUMM (4.20-5.40); WHITE BLOOD CELL COUNT 6.1 /CUMM (4.8-10.8)
[2017-11-03 14:00] VITALS: BP 153/77
--- NOTE | 2017-11-03 14:29 | Cons- Psychiatry ---
Psychiatric Consult Date of Consult: 11/03/17 Reason for Consult: Assessment of paranoia reported by the patient's daughter History of Present Illness: This 81-year-old female presented to the emergency room complaining of right- sided weakness. She was found to have a UTI, she was hypokalemic and had conjunctivitis. She was admitted on October 30. Spoke with the patient's daughter reported that the patient has been intermittently paranoid. As recently as this morning she told her daughter that there were cameras in the room and implied that she was being treated badly by staff at night "you do not know what they do to me here". Her daughter reports that the patient is a loner at baseline and has become increasingly isolative over the last few years. She also reports some personality changes in her mother. She reports that her mom has become more self-centered and of late has been more irritable. For the last 4 years her mother has almost been a recluse. The patient reports "I do get confused". She also states "my temper is becoming short". She reports that she has been increasingly irritable over the last couple of years and particularly of late. She says she does not like "when I am like this". Her appetite is poor and she eats "because I have to". Concentration is fair. She reports that she still able to enjoy a good TV show. She reports that her treatment here is "fair to medium". She believes that her treatment is the same as everybody else's and that she is not being singled out in any way. She does not believe that anybody in the hospital is trying to harm her. She has no desire to . She reports that she is frustrated because she is unable to get out of bed on her own. She is also unhappy about having to go to short-term rehabilitation on discharge. Past psychiatric history: The patient takes citalopram for depression and has done for many years. She has never been hospitalized psychiatrically. She has no history of deliberate self-harm or suicide attempts. Substance abuse history: Patient denies Family psychiatric history: Son was substance dependent Social history: The patient was the youngest of her siblings by16 years and is the only surviving child. She reports that she was spoiled when she was going up and this is corroborated by her daughter. She worked in [employer] for many years. She has 2 children. Her son of MS and substance abuse 8 years ago. Her daughter is 61 lives locally and is supportive. The patient does not get along well with her daughter's . According to the patient's daughter the patient has always been isolative and remote but in the past few years has withdrawn a lot and no longer interacts with people. Allergies: Coded Allergies: adhesive (SKIN RASH 05/25/17) oxycodone (From PERCOCET) (FEELS FUNNY 05/25/17) Current Medications: Med Acetaminophen 650 MG PO Q6P PRN 10/30/17 211 Artificial Tears 2 GTT OPH TID 10/30/17 2108 Citalopram Hydrobromide 20 MG PO DAILY 10/31/17 0900 Docusate Sodium 100 MG PO DAILY NEEDED PRN 10/31/17 0045 Enoxaparin Sodium 40 MG SC DAILY 10/31/17 0900 Furosemide 20 MG PO DAILY 10/31/17 0900 Levothyroxine Sodium 0.05 MG PO DAILY 10/31/17 0900 Lisinopril 10 MG PO DAILY 11/04/17 0900 Lorazepam 0.5 MG PO BIDPRN PRN 10/31/17 0030 Meclizine HCl 25 MG PO DAILY 10/31/17 0900 Ofloxacin 2 GTT OPH Q2 11/01/17 0000 Polyethylene Glycol 17 GM PO DAILY 10/31/17 0900 Senna 187 MG PO DAILY 10/31/17 0900 Vitamin A/Vitamin D 1 TAMARA TOP BID 10/31/17 1414 Past History Past Medical History Neurological: NONE EENT: NONE Cardiovascular: hypertension, hyperlipidemia, systolic CHF Respiratory: NONE Gastrointestinal: NONE Hepatic: NONE Renal: RECURRENT UTI's Musculoskeletal: NONE Psychiatric: anxiety Endocrine: hypothyroidism Blood Disorders: NONE Cancer(s): NONE Past Surgical History Surgical History: non-contributory Assessment/Plan Mental Status Orientation: Person, Place, Situation Mental Status Exam: The patient is a very thin, frail looking 81-year-old female. There is evident conjunctivitis in her left eye and ointment is recently been applied. She was lying in her hospital bed. The TV was on but she did not know whether more control was. She was unable to reach her water without assistance. She was alert and oriented. Gait was not assessed. Eye contact was good. Speech was normal in rate, rhythm, volume and tone. She described her mood is irritable. Her affect was initially mood congruent but broadened as the interview progressed and she became more relaxed. She was not suicidal or homicidal. Thought process was normal in tempo, stream and form. There were no delusions or obsessions. Attention and concentration were fair. There was no perceptual abnormality. Impulse control was good. Mini-Mental state examination was limited by the patient's visual impairments. She was unable to write a sentence or copy an image. Score was 21 out of a possible 28. Score breakdown, 4/5 for orientation to time, 5/[address], 3/3 for registration, 1/3 for 5 minute recall [2 with prompting], 4/5 for attention and concentration: 1/2 for naming objects, 1/1 for repeating a sentence, 1/1 for obeying a written command, 1/3 for obeying a 3 stage command. The patient's insight is fair, judgment at the time of interview unimpaired Lab Results: Lab Anion Gap 6 11/03/17 1045 BUN 18 mg/dL H 11/03/17 1045 BUN/Creatinine Ratio 25.7 % H 11/03/17 1045 Carbon Dioxide 31 mmol/L H 11/03/17 1045 Chloride 105 mmol/L 11/03/17 1045 Creatinine 0.7 mg/dL 11/03/17 1045 Estimated GFR > 60 ml/min 11/03/17 1045 Magnesium 2.4 mg/dL H 10/31/17 0710 Potassium 3.4 mmol/L L 11/03/17 1045 Sodium 141 mmol/L 11/03/17 1045 Hct 37.8 % 11/03/17 1045 Hgb 12.7 G/DL 11/03/17 1045 MCH 29.4 PG 11/03/17 1045 MCHC 33.7 G/DL 11/03/17 1045 MCV 87.5 FL 11/03/17 1045 Plt Count 339 /CUMM 11/03/17 1045 RBC 4.32 /CUMM 11/03/17 1045 RDW 14.7 % H 11/03/17 1045 WBC 6.1 /CUMM 11/03/17 1045 Hyaline Casts 1-3 H 10/30/17 1341 Ur Epithelial Cells MOD H 10/30/17 1341 Ur Leukocyte Esterase SMALL H 10/30/17 1341 Ur Microscopic SEDIMENT EXAMINED 10/30/17 1341 Ur Specific [place] 1.015 10/30/17 1341 Urine Bacteria PACKD H 10/30/17 1341 Urine Bilirubin NEG 10/30/17 1341 Urine Clarity HAZY H 10/30/17 1341 Urine Color YEL 10/30/17 1341 Urine Ketones NEG 10/30/17 1341 Urine Nitrite POS H 10/30/17 1341 Urine Protein NEG MG/DL 10/30/17 1341 Urine RBC 3-5 /HPF 10/30/17 1341 Urine Urobilinogen 0.2 EU/dl 10/30/17 1341 Urine WBC 5-10 /HPF H 10/30/17 1341 Urine pH 7.0 10/30/17 1341 Diffential Diagnosis: 1. Delirium. Patient's level of consciousness is fluctuating as are her agitation and psychosis. 2. Underlying dementia. Difficult to assess cognition in the presence of delirium. Current Mini-Mental score is 21 out of a possible 28. Subjectively the patient reports cognitive deterioration and this is corroborated by her daughter. Brain MRI not available. 3. Major depression. The patient has been on citalopram for some time. She reports anergia, decreased appetite and irritability. Recurrence of her depression may also explain some of her cognitive difficulties. Impression: 1. Treatment of underlying factors causing delirium per medical team 2. Risperidone 0.25 mg may help with psychosis and agitation. The patient has a pre-morbid personality of being isolative and somewhat suspicious. Risk of sudden cardiac and CVA in elderly demented population with this medication explained to the patient's daughter who gave permission for the medication to be used. 3. Suggest checking TSHR . The patient is on levothyroxine 4. The patient may benefit from low-dose mirtazapine [7.5 mg] at night. Suggest not introducing this medication until conjunctivitis and UTI resolved and reasons for underlying weakness are clear. 5. Other management per medical team. Thank you for consulting us on this patient. Psychiatry will continue to follow.
[2017-11-03 21:51] VITALS: BP 150/70
[2017-11-04 06:42] VITALS: BP 160/60
--- NOTE | 2017-11-04 07:15 | PN- Housestaff ---
See Addendum Subjective Follow-up For: Conjunctivitis left eye UTI Delirium Deconditioning Hypokalemia Subjective: Patient seen and examined at bedside. She is complaining of pain in her left eye on opening. She is oriented in time place person. She denies fever, chills , chest pain, abdominal pain, diarrhea, constipation, burning micturition. Review of Systems Constitutional: Reports: see HPI. Objective Last 24 Hrs of Vital Signs/I&O Vital Signs Date Time Temp Pulse Resp B/P B/P Pulse O2 O2 Flow FiO2 Mean Ox Delivery Rate 11/04 1000 75 160/60 11/04 0642 98.2 75 20 160/60 96 Room Air 11/03 2151 98.8 87 22 150/70 97 Room Air 11/03 1632 Room Air 11/03 1400 98.2 77 16 153/77 98 Room Air Intake & Output 11/04 1600 11/04 0800 11/04 0000 Intake Total 600 Output Total 675 Balance -75 Intake, Oral 600 Output, Urine 675 Physical Exam General Appearance: Alert, Oriented X3, Cooperative, No Acute Distress Cardiovascular: Regular Rate, Normal S1, Normal S2 Lungs: Clear to Auscultation, Normal Air Movement Abdomen: Normal Bowel Sounds, Soft, No Tenderness, No Hepatospenomegaly, No Masses Neurological: Normal Gait, Normal Speech, Strength at 5/5 X4 Ext, Normal Tone, Sensation Intact, Cranial Nerves 3-12 NL, Reflexes 2+ Assessment/Plan Assessment: 81-year-old female with past medical history of hypothyroidism, depression, anxiety, vertigo, hypertension presented to emergency department with the chief complaint of weakness and right lower extremity, right upper extremity, discharge from her left eye. At the time of presentation to emergency department her vitals and labs are given below Vitals: -Blood pressure 148/72, pulse rate 74, temperature 98, respiratory rate 20, SPO2 96 Labs: -Her labs are significant for hypokalemia -Urinalysis is significant for urinary tract infection Ultrasonography of the right lower extremity: IMPRESSION: No evidence of deep venous thrombosis involving the right lower extremity. CT head: IMPRESSION: - No intracranial hemorrhage or CT evidence of large territory infarction. Moderate to severe small vessel ischemic changes throughout the bilateral cerebral white matter. 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 The major intracranial vessels are otherwise patent. No intracranial aneurysm is seen. Problems list; *Left eye conjunctivitis *Generalized deconditioning *Right upper extremity, right lower extremity weakness *Urinary tract infection *Hypokalemia *Paranaud dellusion *Hypertension *Elevated TSH/low T3-T4 *Pressure ulcer in the coccyx area Plan: Conjunctivitis: -Ofloxacin ointment for conjunctivitis will be applied every 2 hours -Her eye improved compared to yesterday UTI: -resolved -will encourage patient oral hydration -Clean personal hygiene Hypokalemia: -Hypokalemia resolved Paranoid Delusion: -Today the patient was oriented in time place person -She was no more paranoid -This morning she was oriented to place person -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 *Increased TSH level and decrease T3-T4 level: -Patient TSH level is 33, T3 and T4 LEVEL is ordered -levothyroxine current dose is 0.05micro gram -We will increase the dose of levothyroxine to 100 mcg Pressure ulcer at the coccyx: -Ointment is applied -Change position every 2 hours *Hypertension: -Since 2 days her hypertension is on higher side -She is taking 20 mg of Lasix and 5 mg of lisinopril -Lisinopril dose increased to 10 mg we will follow further -BP trending down *Right lower extremity ultrasonography is normal for DVT, Hanson's cyst -Fall precaution -DVT Prophylaxis: SC Loveno -Code: DNR/DNR -We will discharge to rehab today Problem List: 1. Conjunctivitis 2. Physical deconditioning 3. Hypokalemia 4. Generalized weakness 5. Acute atopic conjunctivitis Pain Ratin Pain Location: Mild pain on opening eyes in left eye Pain Goal: Remain pain free Pain Plan: Pain management pathway Tomorrow's Labs & Rationales: No labs
--- NOTE | 2017-11-04 10:31 | PN- Psychiatry ---
Assessment/Plan Impression: Per medical team, plan is to tansfer patient to STR. Psychiatrically stable. Suggestion: - Continue risperidone 0.25mg QHS Subjective Subjective: "I am the same as I was yesterday". Objective Last 24 Hrs of Vital Signs/I&O Vital Signs Date Time Temp Pulse Resp B/P B/P Pulse O2 O2 Flow FiO2 Mean Ox Delivery Rate 11/04 0642 98.2 75 20 160/60 96 Room Air 11/03 2151 98.8 87 22 150/70 97 Room Air 11/03 1632 Room Air 11/03 1400 98.2 77 16 153/77 98 Room Air 11/03 1041 85 144/67 Intake & Output 11/04 1600 11/04 0800 11/04 0000 Intake Total 600 Output Total 675 Balance -75 Intake, Oral 600 Output, Urine 675 Physical Exam: Quiet, a little lethargic but seen just after ADL assistance. Not suicidal or homicidal. No psychosis.
[2017-11-04] MEDS ORDERED: SYNTHROID50 MCG PO (10:58)
[2017-11-04 14:40] VITALS: BP 146/68
[2017-11-04 22:15] VITALS: BP 182/64
[2017-11-05 06:42] VITALS: BP 190/80
--- NOTE | 2017-11-05 07:15 | PN- Housestaff ---
Agustín Rasheed 11/05/17 0709: Subjective Follow-up For: Conjunctivitis UTI Delirium Hypoklaemia Deconditioning Hypothyroidism Subjective: patient seen and examined at bedside. She was doing good and was asking about rain outside, she was demanding for brakfast and new clothes. She was oriented in time place person.She denies fever, chills, chest pain, abdominal pain, palpitaion, diarrhea, constipation. Review of Systems Constitutional: Reports: see HPI. Objective Last 24 Hrs of Vital Signs/I&O Vital Signs Date Time Temp Pulse Resp B/P B/P Pulse O2 O2 Flow FiO2 Mean Ox Delivery Rate 11/05 0642 98.0 85 20 190/80 97 Room Air 11/04 2215 98.4 92 18 182/64 91 11/04 1440 98.4 85 18 146/68 98 Room Air 11/04 1000 75 160/60 Intake & Output 11/05 0800 11/05 0000 11/04 1600 Intake Total 110 130 620 Output Total 500 Balance 110 130 120 Intake, IV 10 10 Intake, Oral 100 120 620 Number 0 Bowel Movements Output, Urine 500 Patient 93 lb 2 oz 98 lb 1 oz Weight Weight Bed scale Measurement Method Physical Exam General Appearance: Alert, Oriented X3, Cooperative Cardiovascular: Regular Rate, Normal S1, Normal S2, No Murmurs Lungs: Clear to Auscultation, Normal Air Movement Abdomen: Normal Bowel Sounds, Soft, No Tenderness, No Hepatospenomegaly Extremities: No Clubbing, No Cyanosis, Normal Pulses Assessment/Plan Assessment: 81-year-old female with past medical history of hypothyroidism, depression, anxiety, vertigo, hypertension presented to emergency department with the chief complaint of weakness and right lower extremity, right upper extremity, discharge from her left eye. At the time of presentation to emergency department her vitals and labs are given below Vitals: -Blood pressure 148/72, pulse rate 74, temperature 98, respiratory rate 20, SPO2 96 Labs: -Her labs are significant for hypokalemia -Urinalysis is significant for urinary tract infection Ultrasonography of the right lower extremity: IMPRESSION: No evidence of deep venous thrombosis involving the right lower extremity. CT head: IMPRESSION: - No intracranial hemorrhage or CT evidence of large territory infarction. Moderate to severe small vessel ischemic changes throughout the bilateral cerebral white matter. 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 The major intracranial vessels are otherwise patent. No intracranial aneurysm is seen. Problems list; *Left eye conjunctivitis *Generalized deconditioning *Right upper extremity, right lower extremity weakness *Urinary tract infection *Hypokalemia *Paranaud dellusion *Hypertension *Elevated TSH/low T3-T4 *Pressure ulcer in the coccyx area Plan: Conjunctivitis: -Ofloxacin ointment for conjunctivitis will be applied every 2 hours -Her eye improved . She open her both eye. -There is Chalazion in left eye lower eylid. -Hot compression theraphy continued -Pain in left eye subsiding UTI: -resolved -will encourage patient oral hydration -Clean personal hygiene Hypokalemia: -Hypokalemia resolved Paranoid Delusion: -Today the patient was oriented in time place person -She was no more paranoid -This morning she was oriented to place person -She was recognizing her dock operator -Risperidone 0.25 mg . *Increased TSH level and decrease T3-T4 level: -Patient TSH level is 33, T3 and T4 LEVEL is ordered -levothyroxine current dose is 0.05micro gram -We will increase the dose of levothyroxine to 100 mcg *Pressure ulcer at the coccyx: -Ointment is applied -Change position every 2 hours *Hypertension: -Today blood pressure is 190/80 -I will recheck Blood pressure now by myself -Will add some other anti hypertensive if blood pressure still high -She is taking 20 mg of Lasix and 10mg of lisinopril *Right lower extremity ultrasonography is normal for DVT, Hanson's cyst -Fall precaution -DVT Prophylaxis: SC Hannah -Code: DNR/DNR -We will discharge to rehab today Problem List: 1. Generalized weakness 2. Hypothyroidism 3. Hypokalemia 4. Physical deconditioning 5. Conjunctivitis 6. Acute atopic conjunctivitis Pain Ratin Pain Location: no pain Pain Goal: Remain pain free Pain Plan: pain management pathway Tomorrow's Labs & Rationales: cbc, BEP Owen Barr 11/05/17 0936: Attending MD Review Statement Attending Statement Attending MD Statement: examined this patient, discuss w/resident/PA/[employer]NALLITE PLANT OPERATOR, agreed w/resident/PA/[employer]NALL[employer]ANT OPERATOR, discussed with family, reviewed EMR data (avail), discussed with nursing, discussed with case mgmt, reviewed images, amended to note Attending Assessment/Plan: 81-year-old female with past medical history of hypothyroidism, depression, anxiety, vertigo, hypertension is admitted to the Gen Med service with the chief complaint of gen weakness and possbile dementia. She is calm, coperative today. Pysch consulted and no pyschosis reported. UTI culture remain negative. abx completed course. Conjunctivitis resolved. Case management working on STR placement. Anticipate discharge as insurance approves.
[2017-11-05] MEDS ORDERED: LISINOPRIL5 M1 PO (08:08)
[2017-11-05 09:24] VITALS: BP 172/72
[2017-11-05 10:45] VITALS: BP 172/72
== END 2017-11-05 12:15 | DRG 690 ==
LOC: ERH 12:42 → 2NB 19:48 → ERHI 19:48 → ENRESERV 20:56 → ENTRNSPT 21:31 → 2NB 21:32 → EDTRNSPTSTS 21:34 → CMPTRNSPT 21:44 → 2NB 10-31 08:29 → ENPENDDIS 11-05 11:16 → 2NB 11-05 12:15
PROVIDERS: Emergency Medicine; Hospitalist; Internal Medicine; Preventive Medicine Addiction Medicine
DX: N39.0 Urinary tract infection, site not specified (principal); I50.22 Chronic systolic (congestive) heart failure; F05 Delirium due to known physiological condition; E03.9 Hypothyroidism, unspecified; F32.9 Major depressive disorder, single episode, unspecified; F41.9 Anxiety disorder, unspecified; E87.6 Hypokalemia; I11.0 Hypertensive heart disease with heart failure; Z88.5 Allergy status to narcotic agent; E78.5 Hyperlipidemia, unspecified; Z66 Do not resuscitate; F03.90 Unspecified dementia, unspecified severity, without behavioral disturbance, psychotic disturbance, mood disturbance, and anxiety; H10.12 Acute atopic conjunctivitis, left eye; R53.1 Weakness; F22 Delusional disorders; L89.151 Pressure ulcer of sacral region, stage 1
CPT/HCPCS: 2NBSP; 36415; 36592; 73030-RT; 81001; 82436; 93005; 93010; 96374; 97116-GO; 97161-GP; 97530-GO; J0696; J1650

== ENCOUNTER 2017-11-07 19:22 | Observation (INO) | payer OTHER, MEDICARE ==
[~2017-11-07] VITALS: Ht 162.6 cm; Wt 46.3 kg
[~2017-11-07 19:22] MED LIST changes: +MACROBID 100 M100 MG PO; +POLYTRIM EYE DR10 ML OPH
--- NOTE | 2017-11-07 19:57 | ED AMS/SEIZURE/WEAK/DIZZY ---
History of Present Illness General Chief Complaint: Altered Mental Status Stated Complaint: AMS Source: family, W10 Exam Limitations: clinical condition Vital Signs & Intake/Output Vital Signs & Intake/Output Vital Signs Date Time Temp Pulse Resp B/P B/P Pulse O2 O2 Flow FiO2 Mean Ox Delivery Rate 11/07 2300 96 Room Air 11/07 2237 98.2 76 16 157/69 98 Room Air 11/07 2229 98.2 75 20 118/58 96 Room Air 11/07 2124 98.6 76 16 158/68 97 Room Air 11/08 1999 97 Room Air 11/07 1925 98.8 78 16 155/67 99 Room Air ED Intake and Output 11/08 0000 11/07 1200 Intake Total Output Total 200 Balance -200 Output, Urine 200 Patient 96 lb 3.99 oz Weight Weight Bed scale Measurement Method Allergies Coded Allergies: adhesive (SKIN RASH 05/25/17) oxycodone (From PERCOCET) (FEELS FUNNY 05/25/17) Reconcile Medications Acetaminophen 500 MG TABLET 2 TAB PO TID PAIN (Reported) Citalopram Hydrobromide (Citalopram HBr) 20 MG TABLET 1 TAB PO DAILY MENTAL HEALTH (Reported) Furosemide 20 MG TABLET 1 TAB PO DAILY DIURETIC (Reported) Levothyroxine Sodium (Synthroid) 50 MCG TABLET 2 TAB PO DAILY hypothyroid Lisinopril 10 MG TABLET 1 TAB PO DAILY BP (Reported) Lorazepam 0.5 MG TABLET 1 TAB PO BIDP PRN ANXIETY (Reported) Meclizine HCl 25 MG TABLET 1 TAB PO DAILY VERTIGO (Reported) Polytrim (Polytrim Eye Drops) 10,000 UNIT-1 MG/ML DROPS 1 GTT OPH Q6 pink eye Triage Note: PT KASSIDYA FROM [facility] WITH AMS. PER DAUGHTER PT WAS AOX3 THIS MORNING AND STAFF NOTED HER TO BE INCREASINLY CONFUSED AND SLEEPY THROUGHOUT THE DAY AND PT WAS FOUND UNRESPONSIVE AT DINNER TIME. PT ARRIVES UNREPONSIVE. BREATHING SPONTANEOUSLY UNLABORED 99% ON RA. VSS. NO RESPONSE TO VERBAL OR PAINFUL STIMULI. HR 80S NSR ON MONITOR. TRIAGE WRITTEN BY KAITLIN MARX DAUGHTER PRESENT. PER EMS STAFF GAVE PT 0.5MG ATIVAN AT 0300, PT OTHERWISE HAD ALL MEDS USUAL TODAY. Triage Nurses Notes Reviewed? yes Onset: Abrupt Duration: day(s):, constant Timing: recent history Injury Environment: home No Modifying Factors: none HPI: 81-year-old female comes in with altered mental status. Change in mental status today. Patient has been awake talking and then confused and lethargic at other times. Daughter reports that when she went to visit this afternoon the patient had her eyes open and was staring off and not responsive. This is not typical behavior for her. (Faustino Rojas) Past History Travel History Traveled to [place] past 21 day No Medical History Any Pertinent Medical History? see below for history Neurological: vertigo EENT: NONE Cardiovascular: hypertension, hyperlipidemia, systolic CHF Respiratory: NONE Gastrointestinal: NONE Hepatic: NONE Renal: RECURRENT UTI's Musculoskeletal: NONE Psychiatric: anxiety, depression Endocrine: hypothyroidism Blood Disorders: NONE Cancer(s): NONE History of MRSA: No History of VRE: No History of CDIFF: No Surgical History Surgical History: non-contributory Psychosocial History Who do you live with Patient/Self Services at Home Nursing What is your primary language Divehi Tobacco Use: UN ETOH Use: 5 Family History Family History, If Any: SISTER MOTHER Relation not specified for: Cerebral hemorrhage FH: CABG (coronary artery bypass surgery) Hx Contributory? No (Faustino Rojas) Review of Systems Review of Systems Constitutional: Reports: no symptoms. EENTM: Reports: no symptoms. Respiratory: Reports: no symptoms. Cardiovascular: Reports: no symptoms. GI: Reports: no symptoms. Genitourinary: Reports: no symptoms. Musculoskeletal: Reports: no symptoms. Skin: Reports: no symptoms. Neurological/Psychological: Reports: see HPI. Hematologic/Endocrine: Reports: no symptoms. Immunologic/Allergic: Reports: no symptoms. All Other Systems: Reviewed and Negative (Faustino Rojas) Physical Exam Physical Exam General Appearance: thin Head: atraumatic Eyes: Bilateral: other (EYES CLOSED). Ears, Nose, Throat: normal ENT inspection Neck: normal inspection Respiratory: no respiratory distress Gastrointestinal: soft Extremities: normal range of motion Neurologic/Psych: NO RESPONSIVE TO PAINFUL STIMULI/verbal stimuli Skin: intact, normal color Core Measures ACS in differential dx? No CVA/TIA Diagnosis No Swallow Evaluation Not Applicable (pt unable to perform) Swallow eval date 11/07/17 Sepsis Present: No Sepsis Focused Exam Completed? No (Faustino Rojas) Progress Differential Diagnosis: arrythmia, CVA/stroke, electrolyte imbalance, intracranial Hem., intracranial mass/tumor, pneumonia, sepsis, UTI/pyelo Plan of Care: Orders Procedure Date/time Status Nothing by Mouth 11/08 B Active MAGNESIUM 11/08 0600 Active HEPATIC FUNCTION PANEL 11/08 0600 Active CBC WITHOUT DIFFERENTIAL 11/08 06 Active BASIC ELECTROLYTES PLUS BUN&CR 11/[address] in observation 11/08 0324 Active Weight 11/08 0152 Active Vital Signs 11/08 0152 Active Teach/Educate 11/08 0152 Active Pain Treatment and Response 11/08 0152 Active Nutritional Intake, Monitor 11/08 0152 Active Isolation 11/08 0152 Active Intake & Output 11/08 0152 Active Patient Care Conference 11/08 0152 Active Activity/Ambulation 11/08 0152 Active Weight 11/08 0030 Active Vital Signs 11/08 0030 Active Teach/Educate 11/08 0030 Active Pain Treatment and Response 11/08 0030 Active Nutritional Intake, Monitor 11/08 0030 Active Isolation 11/08 0030 Active Patient Care Conference 11/08 0030 Active Activity/Ambulation 11/08 0030 Active AMMONIA LEVEL 11/08 0011 Complete Patient Data 11/07 2226 Active LACTIC ACID 11/07 222 Complete Pathway - chart 11/07 220 Active House Staff 11/07 2202 Active Patient Data 11/07 220 Active Code Status 11/07 2202 Active CULTURE,URINE 11/07 215 Active URINE DRUG SCREEN FOR ER ONLY 11/07 2150 Active Intake & Output 11/07 2148 Active Straight Cath 11/076 Active URINALYSIS 11/07 1924 Complete TROPONIN LEVEL 11/07 1924 Complete LIPASE 11/07 1924 Complete LACTIC ACID 11/07 1924 Complete HEPATIC FUNCTION PANEL 11/07 1924 Complete CBC WITHOUT DIFFERENTIAL 11/07 1924 Complete BASIC METABOLIC PANEL 11/07 1924 Complete AMYLASE 11/07 1924 Complete EKG 11/07 1924 Active SWALLOW EVALUATION 11/07 UNK Active VTE Mechanical Prophylaxis 11/07 UNK Active Nursing Misc 11/07 UNK Active Current Medications Sig/Heather Start time Last Medication Dose Stop Time Status Admin Citalopram 20 MG DAILY 11/08 0900 AC Hydrobromide (Celexa) Furosemide 20 MG DAILY 11/08 09 AC (Lasix) Lisinopril 10 MG DAILY 11/08 0900 AC (Prinivil) Lorazepam 0.5 MG BID PRN 11/08 09 CAN (Ativan) 11/15 0859 Meclizine HCl 25 MG DAILY 11/08 09 AC (Antivert) Levothyroxine Sodium 0.1 MG DAILY AC 11/08 0700 AC (Synthroid) Dextrose/Sodium 1,000 ML Q20H 11/07 2230 AC 11/07 Chloride 2336 (D5W-1/2 Normal Saline 1000ML) Acetaminophen 650 MG Q6P PRN 11/07 2214 AC (Tylenol) Acetaminophen 1,000 MG Q6P PRN 11/07 221 AC (Ofirmev) Hydromorphone HCl 0.6 MG ONCE ONE 11/07 2114 CAN (Dilaudid) 11/08 2115 Laboratory Tests 11/08/17 0050: Lactic Acid 0.9 11/08/17 0050: Ammonia < 9 L 11/07/175: Urine Opiates Screen Pending, Methadone Screen Pending, Barbiturate Screen Pending, Ur Phencyclidine Scrn Pending, Amphetamines Screen Pending, U Benzodiazepines Scrn Pending, Urine Cocaine Screen Pending, Urine Cannabis Screen Pending, Urine Color YEL, Urine Clarity CLEAR, Urine pH 6.0, Ur Specific [place] 1.020, Urine Protein NEG, Urine Ketones NEG, Urine Nitrite NEG, Urine Bilirubin NEG, Urine Urobilinogen 0.2, Ur Leukocyte Esterase NEG, Ur Microscopic EXAM NOT REQUIRED, Urine Hemoglobin NEG, Urine Glucose NEG 11/07/17 2030: Anion Gap 5, Estimated GFR > 60, BUN/Creatinine Ratio 37.5 H, Glucose 98, Lactic Acid 0.9, Calcium 9.4, Total Bilirubin 0.4, Direct Bilirubin 0.2, AST 51 H, ALT 64 H, Alkaline Phosphatase 101, Troponin I 0.03, Total Protein 5.9 L, Albumin 3.4 L, Amylase 48, Lipase 41, CBC w Diff NO MAN DIFF REQ, RBC 4.14 L, MCV 87.8, MCH 28.9, MCHC 32.9 L, RDW 14.8 H, MPV 7.9, Gran % 71.1, Lymphocytes % 18.5 L, Monocytes % 8.7, Eosinophils % 1.3, Basophils % 0.4, Absolute Granulocytes 5.6, Absolute Lymphocytes 1.5, Absolute Monocytes 0.7 H, Absolute Eosinophils 0.1, Absolute Basophils 0 Microbiology 11/07 2144 URINE ROUT: Urine Culture - RECD Diagnostic Imaging: Viewed by Me: Radiology Read, CT Scan. Discussed w/RAD: Radiology Read, CT Scan. Radiology Impression: PATIENT: NAKIA SCHAEFFER PRESENT AGE: 81 PATIENT ACCOUNT NO: [id number] : 33 LOCATION: ER ORDERING PHYSICIAN: Faustino GERMAIN SERVICE DATE: 11/07/17 EXAM TYPE : CAT - CT HEAD WO IV CONTRAST EXAMINATION: CT HEAD WITHOUT CONTRAST CLINICAL INFORMATION: Altered mental status. COMPARISON: CT angiogram of the head 2017. TECHNIQUE: Contiguous axial imaging was performed from the skull base to vertex without intravenous administration of contrast. DLP: 623.94 mGy-cm FINDINGS: There is no acute intracranial hemorrhage or abnormal extra-axial collection. No intracranial mass effect or midline shift. Lateral and third ventricles are slightly prominent and there is proportionate prominence of the subarachnoid spaces reflecting a mild degree of global parenchymal volume loss. Numerous ill-defined foci of hypoattenuation are visualized throughout the periventricular white matter that most likely represent a chronic manifestation of small vessel ischemia. Naranjo-white matter differentiation is otherwise grossly preserved and there is no evidence of acute territorial infarct. The calvarium and skull base are intact. Mastoid air cells and middle ear cavities are well aerated. Visualized paranasal sinuses are well-aerated. IMPRESSION: There is mild global parenchymal loss and numerous chronic small vessel ischemic changes within the periventricular white matter. No evidence of acute territorial infarct or hemorrhage. DICTATED BY: Celestine Maldonado MD DATE/TIME DICTATED:2024 RACECOURSE BARRIER ATTENDANT:TOMMY DATE/TIME TRANSCRIBED:11/07/172024 CONFIDENTIAL, DO NOT COPY WITHOUT APPROPRIATE AUTHORIZATION. <Electronically signed in Other Vendor System> SIGNED BY: Celestine Maldonado MD 11/07/172032, PATIENT: NAKIA SCHAEFFER PRESENT AGE: 81 PATIENT ACCOUNT NO: [id number] : 33 LOCATION: [facility] ORDERING PHYSICIAN: Manish Reed MD SERVICE DATE: 11/07/17 EXAM TYPE: RAD - XRY- PORTABLE CHEST XRAY EXAMINATION: XR PORTABLE CHEST CLINICAL INFORMATION: Hypoxia. COMPARISON: Chest x-ray 06/27/2017. TECHNIQUE: Portable frontal view of the chest was obtained. FINDINGS: Symmetric lung inflation. No focal consolidation, pleural effusion, or pneumothorax. Cardiac silhouette size is normal. Atherosclerotic calcification within the aortic arch. No acute osseous findings. IMPRESSION: No acute pulmonary process. DICTATED BY: Jose Miguel Sorenson MD DATE/TIME DICTATED:11/07/172000 RACECOURSE BARRIER ATTENDANT:TOMMY DATE/TIME TRANSCRIBED:11/07/172000 CONFIDENTIAL, DO NOT COPY WITHOUT APPROPRIATE AUTHORIZATION. <Electronically signed in Other Vendor System> SIGNED BY: Jose Miguel Sorenson MD 11/07/172004 Initial ED EKG: normal sinus rhythm, rate (80), nonspecific ST T wave chg (Faustino Rojas) Departure Departure Disposition: STILL A PATIENT Condition: Stable Clinical Impression Primary Impression: Altered mental status Secondary Impressions: TIA (transient ischemic attack) Referrals: Michell Snyder MD (PCP/Family) Departure Forms: Customer Survey General Discharge Information Observation Note Spoke With: Will Kinney MD Physician Advisor Notified: JOSE MIGUEL MCCANN DO Place Patient In: Non-ED OBS Care Area Rationale for Observation: My rational for observation is as follows . Acute change in mental status. Etiology is unclear to this time. Neurology consultation. Cardiac telemetry. (Faustino Rojas) PA/ELECTRICAL ENGINEER Co-Sign Statement Statement: ED Attending supervision documentation- [x] I saw and evaluated the patient. I have also reviewed all the pertinent lab results and diagnostic results. I agree with the findings and the plan of care as documented in the PA's/ELECTRICAL ENGINEER's documentation. [] I have reviewed the ED Record and agree with the PA's/ELECTRICAL ENGINEER's documentation. [] Additions or exceptions (if any) to the PAs/ELECTRICAL ENGINEER's note and plan are summarized below: [] (Derek SHELLEY,Manish Stewart)
--- NOTE | 2017-11-07 20:05 | RADIOLOGY REPORT ---
EXAMINATION: XR PORTABLE CHEST CLINICAL INFORMATION: Hypoxia. COMPARISON: Chest x-ray 06/27/2017. TECHNIQUE: Portable frontal view of the chest was obtained. FINDINGS: Symmetric lung inflation. No focal consolidation, pleural effusion, or pneumothorax. Cardiac silhouette size is normal. Atherosclerotic calcification within the aortic arch. No acute osseous findings. IMPRESSION: No acute pulmonary process.
--- NOTE | 2017-11-07 20:33 | CT SCAN REPORT ---
EXAMINATION: CT HEAD WITHOUT CONTRAST CLINICAL INFORMATION: Altered mental status. COMPARISON: CT angiogram of the head 10/30/2017. TECHNIQUE: Contiguous axial imaging was performed from the skull base to vertex without intravenous administration of contrast. DLP: 623.94 mGy-cm FINDINGS: There is no acute intracranial hemorrhage or abnormal extra-axial collection. No intracranial mass effect or midline shift. Lateral and third ventricles are slightly prominent and there is proportionate prominence of the subarachnoid spaces reflecting a mild degree of global parenchymal volume loss. Numerous ill-defined foci of hypoattenuation are visualized throughout the periventricular white matter that most likely represent a chronic manifestation of small vessel ischemia. Naranjo-white matter differentiation is otherwise grossly preserved and there is no evidence of acute territorial infarct. The calvarium and skull base are intact. Mastoid air cells and middle ear cavities are well aerated. Visualized paranasal sinuses are well-aerated. IMPRESSION: There is mild global parenchymal loss and numerous chronic small vessel ischemic changes within the periventricular white matter. No evidence of acute territorial infarct or hemorrhage.
[2017-11-07 20:45] LABS: ABSOLUTE BASOPHIL COUNT 0 /CUMM (0.0-0.2); ABSOLUTE EOSINOPHIL COUNT 0.1 /CUMM (0.0-0.7); ABSOLUTE GRANULOCYTE CT 5.6 /CUMM (1.4-6.5); ABSOLUTE LYMPH COUNT 1.5 /CUMM (1.2-3.4); ABSOLUTE MONOCYTE COUNT 0.7 /CUMM (0.10-0.60); BASOPHIL % 0.4 % (0.0-2.0); EOSINOPHIL % 1.3 % (0-5); GRANULOCYTE % 71.1 % (42.2-75.2); HEMATOCRIT 36.4 % (37-47); MEAN CORPUSCULAR HGB 28.9 PG (27.0-31.0); MEAN CORPUSCULAR HGB CONC 32.9 G/DL (33.0-37.0); MEAN CORPUSCULAR VOLUME 87.8 FL (81.0-99.0); MEAN PLATELET VOLUME 7.9 FL (7.4-10.4); PLATELET COUNT 352 /CUMM (130-400); RBC DISTRIBUTION WIDTH 14.8 % (11.5-14.5); RED BLOOD CELL CT 4.14 /CUMM (4.20-5.40); WHITE BLOOD CELL COUNT 7.9 /CUMM (4.8-10.8)
[2017-11-07] MEDS ORDERED: LISINOPRIL10 M1 PO (21:21)
[2017-11-07] MEDS ORDERED: ACETAMINOPHEN500 M4 PO (21:24)
--- NOTE | 2017-11-07 21:32 | History & Physical ---
Valerie Rasheed 11/07/172130: General Information and HPI MD Statement: I have seen and personally examined NAKIA SCHAEFFER and documented this H&P. The patient is a 81 year old F who presented with a patient stated chief complaint of [[id number]]. Source of Information: old records, nurse at [facility] Exam Limitations: unable to give history, confusion History of Present Illness: 81-year-old female, resident of [facility], with a past medical history significant for hypertension, hyperlipidemia, systolic heart failure, hypothyroidism, vertigo, depression, anxiety, recurrent UTIs, recently discharged from [facility] on November 14 after being treated for UTI with ceftriaxone for 3 days; was brought in by ambulance to the [facility] emergency department for further evaluation of altered mental status. History was obtained from medical records and nurse from [facility]. The patient went to [facility] on November 05 after being discharged from the [facility] as explained above. That evening she was alert oriented 3 eyes were open and she was eating and drinking in very small quantities. It was reported that she got a little bit confused later that night and was saying" why are you mad at me Kalpana? Am I forgiven?" On the night of November 07 she became very restless, confused, and was trying to get out of bed to go to school?. She was given Ativan 0.5 mg tablet at 3 AM. On the morning of November 07 she was cooperative. 5 PM 914 the family came to see her and she did not respond to them. She was brought in by ambulance to the [facility] emergency department. The nurse reports that she was not given any more Ativan at that than the 0.5 mg at 3 AM on November 07. And she was sure that the patient does not have a Ativan in her possessions. I was also reported about a bed sore in the coccygeal region. Past History Travel History Traveled to [place] past 21 day No Medical History Neurological: vertigo EENT: NONE Cardiovascular: hypertension, hyperlipidemia, systolic CHF Respiratory: NONE Gastrointestinal: NONE Hepatic: NONE Renal: RECURRENT UTI's Musculoskeletal: NONE Psychiatric: anxiety, depression Endocrine: hypothyroidism Blood Disorders: NONE Cancer(s): NONE History of MRSA: No History of VRE: No History of CDIFF: No Surgical History Surgical History: non-contributory Past Family/Social History Family History Relations & Conditions if any SISTER MOTHER Relation not specified for: Cerebral hemorrhage FH: CABG (coronary artery bypass surgery) Psychosocial History Services at Home: Nursing ETOH Use: 5 Review of Systems Review of Systems Constitutional: Reports: see HPI. Exam & Diagnostic Data Last 24 Hrs of Vital Signs/I&O Vital Signs Date Time Temp Pulse Resp B/P B/P Pulse O2 O2 Flow FiO2 Mean Ox Delivery Rate 11/07 2237 98.2 76 16 157/69 98 Room Air 11/07 2124 98.6 76 16 158/68 97 Room Air 11/08 1999 97 Room Air 11/07 1925 98.8 78 16 155/67 99 Room Air Physical Exam General Appearance unresponsive Skin No Rashes, No Breakdown, No Significant Lesion Skin Temp/Moisture Exam: Cool/Dry Sepsis Skin Exam (color): Normal for Ethnicity HEENT Atraumatic, PERRLA, EOMI, Mucous Membr. moist/pink Neck Supple, No JVD Cardiovascular Regular Rate, Normal S1, Normal S2, No Murmurs Lungs Clear to Auscultation, Normal Air Movement Abdomen Normal Bowel Sounds, Soft, No Tenderness, No Hepatospenomegaly, No Masses Neurological unresponsive to painful stimulus: no eye opening Extremities Coccygeal region: Erythema. Skin intact Vascular Normal Pulses, Pulses Symmetrical Last 24 Hrs of Labs/Lm: Laboratory Tests 11/08/17 0646: Anion Gap 6, Estimated GFR > 60, BUN/Creatinine Ratio 38.6 H, Magnesium 2.1, Total Bilirubin 0.5, Direct Bilirubin 0.3, AST 45 H, ALT 53 H, Alkaline Phosphatase 93, Total Protein 5.4 L, Albumin 3.2 L, CBC w Diff NO MAN DIFF REQ , RBC 3.80 L, MCV 88.3, MCH 29.0, MCHC 32.9 L, RDW 14.7 H, MPV 8.2, Gran % 68.2, Lymphocytes % 19.5 L, Monocytes % 8.6, Eosinophils % 2.7, Basophils % 1.0 , Absolute Granulocytes 4.5, Absolute Lymphocytes 1.3, Absolute Monocytes 0.6, Absolute Eosinophils 0.2, Absolute Basophils 0.1 11/08/17 0050: Lactic Acid 0.9 11/08/17 0050: Ammonia < 9 L 11/07/175: Urine Opiates Screen Pending, Methadone Screen Pending, Barbiturate Screen Pending, Ur Phencyclidine Scrn Pending, Amphetamines Screen Pending, U Benzodiazepines Scrn Pending, Urine Cocaine Screen Pending, Urine Cannabis Screen Pending, Urine Color YEL, Urine Clarity CLEAR, Urine pH 6.0, Ur Specific [place] 1.020, Urine Protein NEG, Urine Ketones NEG, Urine Nitrite NEG, Urine Bilirubin NEG, Urine Urobilinogen 0.2, Ur Leukocyte Esterase NEG, Ur Microscopic EXAM NOT REQUIRED, Urine Hemoglobin NEG, Urine Glucose NEG 11/07/17 2030: Anion Gap 5, Estimated GFR > 60, BUN/Creatinine Ratio 37.5 H, Glucose 98, Lactic Acid 0.9, Calcium 9.4, Total Bilirubin 0.4, Direct Bilirubin 0.2, AST 51 H, ALT 64 H, Alkaline Phosphatase 101, Troponin I 0.03, Total Protein 5.9 L, Albumin 3.4 L, Amylase 48, Lipase 41, CBC w Diff NO MAN DIFF REQ, RBC 4.14 L, MCV 87.8, MCH 28.9, MCHC 32.9 L, RDW 14.8 H, MPV 7.9, Gran % 71.1, Lymphocytes % 18.5 L, Monocytes % 8.7, Eosinophils % 1.3, Basophils % 0.4, Absolute Granulocytes 5.6, Absolute Lymphocytes 1.5, Absolute Monocytes 0.7 H, Absolute Eosinophils 0.1, Absolute Basophils 0 Microbiology 11/07 2144 URINE ROUT: Urine Culture - RECD Assessment/Plan Assessment: 81-year-old female, resident of [facility], with a past medical history significant for hypertension, hyperlipidemia, systolic heart failure, hypothyroidism, vertigo, depression, anxiety, recurrent UTIs, recently discharged from [facility] on November 14 after being treated for UTI with ceftriaxone for 3 days; was brought in by ambulance to the [facility] emergency department for further evaluation of altered mental status. Vital signs Temperature 98.8, pulse rate 78, respiratory rate 16, blood pressure 155/67, saturating 99 at room air Admission labs WBC 7.9, hemoglobin 12, platelet count 352, sodium 141, potassium 3.6, BUN 30, creatinine 0.8, lactic acid 0.9, AST 51, ALT-64, CO2 32 Urinalysis and culture-pending Urine toxicology-pending Echocardiogram-2017 Ejection fraction 55-60% with no regional wall motion abnormality Chest x-ray: no acute pulmonary process Head CT: There is mild global parenchymal loss and numerous chronic small vessel ischemic changes within the periventricular white matter. No evidence of acute territorial infarct or hemorrhage. Problems: 1.altered mental status 2.deconditioning Assessment and plan: overdose of benzodiazepine/Physical deconditioning/recurrent or residual UTI. As Ranked By This Provider Problem List: 1. Altered mental status Core Measures/Misc (11/10) Acute Coronary Syndrome ACS Diagnosis: No Congestive Heart Failure Congestive Heart Failure Diagnosis No Cerebrovascular Accident CVA/TIA Diagnosis: No VTE (View Protocol) VTE Risk Factors Age>40 No Mechanical VTE Prophylaxis d/t N/A MechProphylax Ordered No VTE Pharm Prophylaxis d/t NA PharmProphylax ordered Sepsis (View protocol) Sepsis Present: No If YES complete Sepsis Event Note If YES complete Sepsis Event Note Oralia SHELLEY,[facility] 11/07/17 2399: General Information and HPI Allergies/Medications Home Med list Acetaminophen 500 MG TABLET 2 TAB PO TID PAIN (Reported) Citalopram Hydrobromide (Citalopram HBr) 20 MG TABLET 1 TAB PO DAILY MENTAL HEALTH (Reported) Furosemide 20 MG TABLET 1 TAB PO DAILY DIURETIC (Reported) Levothyroxine Sodium (Synthroid) 50 MCG TABLET 2 TAB PO DAILY hypothyroid Lisinopril 10 MG TABLET 1 TAB PO DAILY BP (Reported) Lorazepam 0.5 MG TABLET 0.25 MG PO BIDP PRN ANXIETY Meclizine HCl 25 MG TABLET 1 TAB PO DAILY VERTIGO (Reported) Polytrim (Polytrim Eye Drops) 10,000 UNIT-1 MG/ML DROPS 1 GTT OPH Q6 pink eye Core Measures/Misc (11/10) Sepsis (View protocol) If YES complete Sepsis Event Note If YES complete Sepsis Event Note Resident Review Statement Resident Statement: examined this patient, agreed with internist medical doctor md Other Findings: 81-year-old female is a resident of [facility] was brought in because of altered mental status. Patient has a past medical history of hypertension, vertigo, hyperlipidemia, systolic heart failure, anxiety, depression, hypothyroidism, recurrent UTI. Patient was recently admitted and got discharged on October 31 with lower extremity weakness and was treated for UTI and physical deconditioning. Also during her last admission her lisinopril dose was increased from 5 mg to 10 mg and her levothyroxine dose was increased from 50 g to 100 g. History-unobtainable We will reach the facility and confirm her medications and history. Vital signs Temperature 98.8, pulse rate 78, respiratory rate 16, blood pressure 155/67, saturating 99 at room air Admission labs WBC 7.9, hemoglobin 12, platelet count 352, sodium 141, potassium 3.6, BUN 30, creatinine 0.8, lactic acid 0.9, AST 51, ALT-64, CO2 32 Urinalysis and culture-pending Urine toxicology-pending Echocardiogram-2017 Ejection fraction 55-60% with no regional wall motion abnormality ED treatment Dilaudid 0.6 mg given once Imaging Chest x-ray no acute pulmonary process Head CT There is mild global parenchymal loss and numerous chronic small vessel ischemic changes within the periventricular white matter. No evidence of acute territorial infarct or hemorrhage. Home medication Citalopram 20 mg Lasix 20 mg Levothyroxine 100 mg Lisinopril 10 mg Ativan 0.5 mg when necessary anxiety Meclizine 25 mg Problem list 1. Altered mental status/weakness Observation in telemetry in telemetry At this point unsure about the cause of her altered mental status. May be physical deconditioning/increased benzodiazepine use. Pending urine toxicology. Patient was recently treated for urinary tract infection Which needs to be ruled out. Pending urine culture. Avoid benzodiazepines/opiate. We will change all her by mouth medications to IV if she doesn't pass her swallow eval in the morning. Patient is nothing by mouth pending swallow eval. Patient is DNR/DNI as per W 10 DVT prophylaxis-Lovenox Update-her facility was called over the phone who suggested that patient was in usual state of health alert and oriented 3. Patient was agitated on the sign board erector of November 07 and she was given Ativan. Patient woke up and was totally fine the same day morning. At around 5 PM this evening patient was unresponsive/confused. Hence EMS was called and she was brought to the [facility] Scott Kinney MDConcrete 11/08/17 0151: General Information and HPI MD Statement: I have seen and personally examined NAKIA SCHAEFFER and documented this H&P. The patient is a 81 year old F who presented with a patient stated chief complaint of [change in mental status]. Source of Information: old records Exam Limitations: unable to give history, confusion Allergies/Medications Allergies: Coded Allergies: adhesive (SKIN RASH 05/25/17) oxycodone (From PERCOCET) (FEELS FUNNY 05/25/17) Past History Medical History Cardiovascular: hypertension, hyperlipidemia, systolic CHF Renal: RECURRENT UTI's Psychiatric: anxiety, depression Endocrine: hypothyroidism Review of Systems Review of Systems Constitutional: Reports: see HPI. Exam & Diagnostic Data Last 24 Hrs of Vital Signs/I&O Vital Signs Date Time Temp Pulse Resp B/P B/P Pulse O2 O2 Flow FiO2 Mean Ox Delivery Rate 11/07 2237 98.2 76 16 157/69 98 Room Air 11/07 2229 98.2 75 20 118/58 96 Room Air 11/07 2124 98.6 76 16 158/68 97 Room Air 11/08 1999 97 Room Air 11/07 192 98.8 78 16 155/67 99 Room Air Intake & Output 11/08 0800 11/08 0000 11/07 1600 Intake Total Output Total 200 Balance -200 Output, Urine 200 Patient 91 lb Weight Weight Bed scale Measurement Method Physical Exam General Appearance Alert, Cooperative Skin No Rashes, No Breakdown Sepsis Skin Exam (color): Normal for Ethnicity HEENT Atraumatic, PERRLA, EOMI Neck Supple, No JVD Cardiovascular Regular Rate, Normal S1, Normal S2 Lungs Clear to Auscultation, Normal Air Movement Abdomen Normal Bowel Sounds, Soft, No Tenderness Neurological significant pleasant confusion Last 24 Hrs of Labs/Lm: Laboratory Tests 11/08/17 0050: Lactic Acid Pending 11/08/17 0050: Ammonia Pending 11/07/17 2145: Urine Opiates Screen Pending, Methadone Screen Pending, Barbiturate Screen Pending, Ur Phencyclidine Scrn Pending, Amphetamines Screen Pending, U Benzodiazepines Scrn Pending, Urine Cocaine Screen Pending, Urine Cannabis Screen Pending, Urine Color YEL, Urine Clarity CLEAR, Urine pH 6.0, Ur Specific [place] 1.020, Urine Protein NEG, Urine Ketones NEG, Urine Nitrite NEG, Urine Bilirubin NEG, Urine Urobilinogen 0.2, Ur Leukocyte Esterase NEG, Ur Microscopic EXAM NOT REQUIRED, Urine Hemoglobin NEG, Urine Glucose NEG 11/07/17 2030: Anion Gap 5, Estimated GFR > 60, BUN/Creatinine Ratio 37.5 H, Glucose 98, Lactic Acid 0.9, Calcium 9.4, Total Bilirubin 0.4, Direct Bilirubin 0.2, AST 51 H, ALT 64 H, Alkaline Phosphatase 101, Troponin I 0.03, Total Protein 5.9 L, Albumin 3.4 L, Amylase 48, Lipase 41, CBC w Diff NO MAN DIFF REQ, RBC 4.14 L, MCV 87.8, MCH 28.9, MCHC 32.9 L, RDW 14.8 H, MPV 7.9, Gran % 71.1, Lymphocytes % 18.5 L, Monocytes % 8.7, Eosinophils % 1.3, Basophils % 0.4, Absolute Granulocytes 5.6, Absolute Lymphocytes 1.5, Absolute Monocytes 0.7 H, Absolute Eosinophils 0.1, Absolute Basophils 0 Microbiology 11/07 2144 URINE ROUT: Urine Culture - RECD Diagnostic Data EKG Results normal sinus rhythm, rate (80), nonspecific ST T wave chg Core Measures/Misc (11/10) Sepsis (View protocol) If YES complete Sepsis Event Note If YES complete Sepsis Event Note Attending MD Review Statement Attending Statement Attending MD Statement: examined this patient, discuss w/resident/PA/BISQUE KILN DRAWER, agreed w/resident/PA/BISQUE KILN DRAWER Attending Assessment/Plan: This patient is an 81-year-old female with a significant past medical history for hypertension, vertigo, hyperlipidemia, systolic heart failure, anxiety, depression, hypothyroidism, recurrent UTI. She is a resident of [facility] and was recently discharged (October 31) with lower extremity weakness. She was found to have a UTI and physical deconditioning. She was brought to the hospital for change in mental status. Upon evaluation in the emergency department the patient was found to be afebrile, vital signs stable, normal UA, normal white blood cell count, mild elevation in her BUN, mild elevation of her AST and ALT, urine toxicology still pending, chest x-ray without acute changes, CT scan demonstrates mild global parenchymal loss and numerous chronic small vessel ischemic changes within the periventricular white matter. No evidence of acute territorial infarct or hemorrhage. The patient will be placed in observation for altered mental status/weakness of an uncertain etiology. Well need to observe overnight and determine if benzodiazepines have a role in her confusion or another source will need to be identified. The patient is a DNR/ DNI.
[2017-11-07 22:30] VITALS: BP 118/58
[2017-11-08 07:13] VITALS: BP 172/80
[2017-11-08 07:16] LABS: ABSOLUTE BASOPHIL COUNT 0.1 /CUMM (0.0-0.2); ABSOLUTE EOSINOPHIL COUNT 0.2 /CUMM (0.0-0.7); ABSOLUTE GRANULOCYTE CT 4.5 /CUMM (1.4-6.5); ABSOLUTE LYMPH COUNT 1.3 /CUMM (1.2-3.4); ABSOLUTE MONOCYTE COUNT 0.6 /CUMM (0.10-0.60); EOSINOPHIL % 2.7 % (0-5); GRANULOCYTE % 68.2 % (42.2-75.2); HEMATOCRIT 33.6 % (37-47); MEAN CORPUSCULAR HGB CONC 32.9 G/DL (33.0-37.0); MEAN CORPUSCULAR VOLUME 88.3 FL (81.0-99.0); MEAN PLATELET VOLUME 8.2 FL (7.4-10.4); PLATELET COUNT 362 /CUMM (130-400); RBC DISTRIBUTION WIDTH 14.7 % (11.5-14.5); WHITE BLOOD CELL COUNT 6.6 /CUMM (4.8-10.8)
--- NOTE | 2017-11-08 08:31 | PN- Housestaff ---
[facility] 0831: Subjective Follow-up For: Metabolic encephalopathy due to opiate use possible. Tele-Events Since Last Visit: Patient remained in sinus rhythm with heart rate between 6177 Subjective: No overnight events. Patient remained afebrile. Seen and examined this morning. She is oriented and alert. Patient denied chest pain, palpitation, nausea, vomiting, chill, fever, abdominal pain dysuria. Review of Systems Constitutional: Denies: chills, fever. EENTM: Reports: no symptoms. Cardiovascular: Denies: chest pain, palpitations. Respiratory: Denies: cough, short of breath, sputum production. Gastrointestinal: Denies: abdominal pain, diarrhea, nausea, vomiting. Genitourinary: Reports: no symptoms. Musculoskeletal: Reports: no symptoms. Neurological/Psychological: Reports: see HPI. Objective Last 24 Hrs of Vital Signs/I&O Vital Signs Date Time Temp Pulse Resp B/P B/P Pulse O2 O2 Flow FiO2 Mean Ox Delivery Rate 11/08 0942 81 172/62 11/08 0713 98.2 74 18 172/80 98 Room Air 11/07 2300 96 Room Air 11/07 2238 98.2 76 16 157/69 98 Room Air 11/07 2230 98.2 75 20 118/58 96 Room Air 11/07 2125 98.6 76 16 158/68 97 Room Air 11/07 2000 97 Room Air 11/07 1926 98.8 78 16 155/67 99 Room Air Intake & Output 11/08 1600 11/08 0800 11/08 0000 Intake Total 10 Output Total 200 Balance -190 Intake, Oral 10 Output, Urine 200 Patient 96 lb 4 oz 96 lb 3.99 oz Weight Weight Bed scale Measurement Method Physical Exam General Appearance: Alert, Oriented X3, Cooperative Skin Temp/Moisture Exam: Warm/Dry Sepsis Skin Exam (color): Normal for Ethnicity HEENT: Atraumatic, EOMI Neck: Supple Cardiovascular: Normal S1, Normal S2 Lungs: Clear to Auscultation Abdomen: Soft, No Tenderness Neurological: Normal Speech, Normal Tone Extremities: No Edema Assessment/Plan Assessment: 81-year-old female, resident of [facility], with a past medical history significant for hypertension, hyperlipidemia, systolic heart failure, hypothyroidism, vertigo, depression, anxiety, recurrent UTIs, recently discharged from [facility] on Brenda 21 after being treated for UTI with ceftriaxone for 3 days; was brought in by ambulance to the [facility] emergency department for further evaluation of altered mental status. Following the patient on telemetry prophylaxis appropriate. Metabolic encephalopathy: (Improving) -Patient came in with altered mental status possibly due to opiate use as her U tox was positive. -N.p.o. till pending swallow evaluation. -CT scan is negative for any intracranial pathology. -We will encourage patient to drink orally. Dehydration: -Patient's BUN/creatinine ratio is elevated possibly due to dehydration. -Patient's had poor oral intake. -Encouraged patient to drink orally. -We will encourage patient to take orally after she is cleared for swallow evaluation. History of hypothyroidism: -Continue levothyroxine History of hypertension hyperlipidemia: -Continue lisinopril. History of systolic heart failure: -Continue Lasix DVT prophylactic: Mechanical and subcutaneous Lovenox CODE STATUS: DNR/intu Problem List: 1. Altered mental status Pain Ratin Pain Location: none Pain Goal: Remain pain free Pain Plan: pain pathway Tomorrow's Labs & Rationales: cbc/bep Rowan Sepulveda MD 11/08/17 0840: Attending MD Review Statement Attending Statement Attending MD Statement: examined this patient, discuss w/resident/PA/COMMUNITY OUTREACH ADVOCATE, agreed w/resident/PA/COMMUNITY OUTREACH ADVOCATE, reviewed EMR data (avail), discussed with nursing, discussed with case mgmt, reviewed images Attending Assessment/Plan: 81-year-old female past medical history of hypertension, recent admission for a UTI and some paranoia seen by psychiatry and her recent admission and started on low-dose Risperdal. [facility] and was brought in for an acute mental status change. She has been started on benzodiazepines and it is unclear why. Will need to get more collateral from the [facility]. At this point I think it is a toxic encephalopathy secondary to the benzodiazepine. She was very lethargic in the ER so she has been kept n.p.o. pending a swallow eval. She also appears mildly dehydrated with an elevated BUN and weight loss with poor p.o. intake per her daughter. At this point we will keep her on telemetry, her CT head has been negative if she passes a swallow eval will feed her. Continue her levothyroxine for hypothyroidism and get more information from the [facility].
[2017-11-08 13:49] VITALS: BP 183/77
[2017-11-08 23:45] VITALS: BP 136/58
[2017-11-09 08:16] VITALS: BP 130/68
--- NOTE | 2017-11-09 08:35 | PN- Att Addend ---
Attending Addendum Attending Brief Note Patient seen and examined. She is much more awake today and passed a swallow eval, she is eating a regular diet. On exam pressure is 130/68, pulse is 83, afebrile, breathing at 16-18. She is awake and alert, she gets emotional at times and says she wants to . Lungs are clear to auscultation bilaterally, heart is S1-S2 regular, abdomen is soft and there is no edema. Labs show a BUN that is improved to 22. She is an 82-year-old past medical history of hypertension, hypothyroidism sent in from the long term for unresponsiveness. At this point I think it is a toxic encephalopathy secondary to benzodiazepines. Will call the long term on Friday and get collateral history about that. We are pending a PT eval and will follow closely.
--- NOTE | 2017-11-09 08:49 | PN- Housestaff ---
Subjective Follow-up For: Metabolic encephalopathy due to opiate use possible. Subjective: Afebrile overnight. Patient is seen and examined this morning. Patient states she would like something to eat. Patient has a tray of food for breakfast and nurse has been feeding the patient. Patient states she does not know how she is feeling as she says she is confused. Patient otherwise denies any specific complaints today. Review of Systems Constitutional: Reports: see HPI. Objective Last 24 Hrs of Vital Signs/I&O Vital Signs Date Time Temp Pulse Resp B/P B/P Pulse O2 O2 Flow FiO2 Mean Ox Delivery Rate 11/09 1010 85 140/52 11/09 0816 98.0 83 16 130/68 97 Room Air Room Air 11/08 2345 98.4 90 18 136/58 97 11/08 1624 91 156/60 11/08 1349 98.2 79 18 183/77 98 Room Air Intake & Output 11/09 1600 11/09 0800 11/09 0000 Intake Total 100 300 Output Total Balance 100 300 Intake, Oral 100 300 Patient 96 lb Weight Physical Exam General Appearance: Alert, No Acute Distress (confusional state) Skin: No Rashes Skin Temp/Moisture Exam: Warm/Dry HEENT: Atraumatic Neck: Supple, No JVD Cardiovascular: Regular Rate, Normal S1, Normal S2 Lungs: Clear to Auscultation Extremities: No Edema Assessment/Plan Assessment: 81-year-old female, resident of [facility], with a past medical history significant for hypertension, hyperlipidemia, systolic heart failure, hypothyroidism, vertigo, depression, anxiety, recurrent UTIs, recently discharged from [facility] on November 14 after being treated for UTI with ceftriaxone for 3 days; was brought in by ambulance to the [facility] emergency department for further evaluation of altered mental status. Following the patient on telemetry prophylaxis appropriate. Metabolic encephalopathy: (Improving) -Patient came in with altered mental status possibly due to opiate use as her U tox was positive. -N.p.o. till pending swallow evaluation. -CT scan is negative for any intracranial pathology. -We will encourage patient to drink orally. Dehydration: -Patient's BUN/creatinine ratio is elevated possibly due to dehydration. -Patient's had poor oral intake. -Encouraged patient to drink orally. -We will encourage patient to take orally after she is cleared for swallow evaluation. History of hypothyroidism: -Continue levothyroxine History of hypertension hyperlipidemia: -Continue lisinopril. History of systolic heart failure: -Continue Lasix DVT prophylactic: Mechanical and subcutaneous Lovenox CODE STATUS: DNR/DNI Problem List: 1. Altered mental status Pain Ratin Pain Location: NA Pain Goal: Remain pain free Pain Plan: na Tomorrow's Labs & Rationales: routine
[2017-11-09 15:03] VITALS: BP 130/56
[2017-11-09 22:15] VITALS: BP 168/84
[2017-11-10 06:45] VITALS: BP 176/84
--- NOTE | 2017-11-10 07:06 | PN- Housestaff ---
Toni Oconnell 11/10/17 0706: Subjective Follow-up For: Metabolic encephalopathy, cause unknown Possible increased use of benzodiazepines Physical deconditioning Complaints: pain in bilateral upper extremities, distal Subjective: Patient seen and examined at the bedside. Patient complains today of pain in her bilateral distal upper extremities. Patient was responsive to interview, but was slow to respond and seemed to have difficulty moving. Requested a cup of coffee. Does not remember how she slept last night. Denies fever/chills/ night sweats/chest pain/abdominal pain/urinary symptoms. Review of Systems Constitutional: Reports: see HPI. Cardiovascular: Denies: chest pain, palpitations, syncope. Respiratory: Denies: cough, short of breath, wheezing. Genitourinary: Reports: frequency (patient urinated during exam). Musculoskeletal: Reports: no symptoms. Skin: Reports: no symptoms. Objective Last 24 Hrs of Vital Signs/I&O Vital Signs Date Time Temp Pulse Resp B/P B/P Pulse O2 O2 Flow FiO2 Mean Ox Delivery Rate 11/10 0645 98.3 78 20 176/84 98 11/09 2215 98.7 92 18 168/84 96 11/09 1503 97.9 88 18 130/56 98 Room Air 11/09 1010 85 140/52 11/09 0816 98.0 83 16 130/68 97 Room Air Room Air Intake & Output 11/10 1600 11/10 0800 11/10 0000 Intake Total 100 400 Output Total 150 Balance 100 250 Intake, Oral 100 400 Output, Urine 150 Patient 102 lb Weight Physical Exam General Appearance: Alert, Oriented X3, Cooperative, Mild Distress Skin: No Rashes, No Breakdown, No Significant Lesion Skin Temp/Moisture Exam: Warm/Dry HEENT: Atraumatic, PERRLA, EOMI, Mucous Membr. moist/pink Neck: Supple, No JVD, No thryomegaly Cardiovascular: Regular Rate, Normal S1, Normal S2, No Murmurs, Gallops, Rubs Lungs: Clear to Auscultation, decreased air movement, likely due to physical decompensation Abdomen: Soft, No Tenderness, No Hepatospenomegaly, No Masses Neurological: Sensation Intact, decreased strength globally, decreased tone Extremities: No Clubbing, No Cyanosis, No Edema Current Medications: Current Medications Sig/Heather Start time Last Medication Dose Route Stop Time Status Admin Acetaminophen 650 MG Q6P PRN 11/07 2215 AC PO Acetaminophen 1,000 MG Q6P PRN 11/07 2215 AC IV Citalopram 20 MG DAILY 11/08 09 AC 11/09 Hydrobromide PO 1010 Furosemide 20 MG DAILY 11/08 09 AC 11/09 PO 1010 Levothyroxine Sodium 0.1 MG DAILY AC 11/08 0700 AC 11/10 PO 0634 Lisinopril 10 MG DAILY 11/08 09 AC 11/09 PO 1010 Last 24 Hrs of Lab/Lm Results Last 24 Hrs of Labs/Mics: Laboratory Tests 11/10/17 0751: Sodium Pending, Potassium Pending, Chloride Pending, Carbon Dioxide Pending, Anion Gap Pending, BUN Pending, Creatinine Pending, BUN/Creatinine Ratio Pending , Total Bilirubin Pending, Direct Bilirubin Pending, AST Pending, ALT Pending, Alkaline Phosphatase Pending, Total Protein Pending, Albumin Pending, CBC w Diff Pending, WBC Pending, RBC Pending, Hgb Pending, Hct Pending, MCV Pending, MCH Pending, MCHC Pending, RDW Pending, Plt Count Pending, MPV Pending Orders Fingersticks (last 24 hrs): 167-209 Assessment/Plan Assessment: 81-year-old female, resident of [place], with a past medical history significant for hypertension, hyperlipidemia, systolic heart failure, hypothyroidism, vertigo, depression, anxiety, recurrent UTIs, recently discharged from [facility] on November 05 after being treated for UTI with ceftriaxone for 3 days; was brought in by ambulance to the [facility] emergency department for further evaluation of altered mental status. Problem list/plan: Probable metabolic encephalopathy Hypothyroidism History of hypertension, heart failure Continue Lasix DVT prophylaxis: Lovenox and ALPS Regular diet Problem List: 1. Altered mental status 2. Physical deconditioning 3. Chronic systolic heart failure 4. Hypertension 5. Hypothyroidism Pain Ratin Pain Location: bilaterally distal upper extremities Pain Goal: get to pain 0 Pain Plan: Tylenol, oral and IV Tomorrow's Labs & Rationales: none, discharge planned Discharge Plan Discharge Disposition: [facility] Rowan Sepulveda MD 11/10/17 0950: Attending Review Statement Attending Statement Attending MD Statement: examined this patient, discuss w/resident/PA/SUBSYSTEMS ENGINEER, agreed w/resident/PA/SUBSYSTEMS ENGINEER, reviewed EMR data (avail), discussed with nursing, discussed with case mgmt, reviewed images Attending Assessment/Plan: Overall patient is doing okay. She appears to be at her baseline. She was recently here and treated for a UTI. Sent to the care home and sent back for an episode of unresponsiveness. There is no evidence of infection, no electrolyte abnormality and no arrhythmia or that we could find. She was mildly dehydrated on physical exam when she first came in with a mildly elevated BUN and I think the benzodiazepine that she got also played a role. At this point I think she is stable to be sent back to the care home, we will decrease the benzo dose to 0.25 twice daily as needed from 0.5 twice daily. Levothyroxine was recently increased from 50-100 so she needs an outpatient follow-up of her TSH in 4 weeks.
--- NOTE | 2017-11-10 07:24 | Discharge Summary ---
Visit Information Visit Dates Admission Date: 11/07/17 Discharge Date: 11/10/2017 Hospital Course Course Attending Physician: Rowan Sepulveda MD [facility]: This is an 81-year-old female, resident of [facility], with a past medical history significant for hypertension, hyperlipidemia, systolic heart failure, hypothyroidism, vertigo, depression, anxiety, recurrent UTIs, was brought in by ambulance to the [facility] emergency department for further evaluation of altered mental status. The patient was discharged from [facility] in November 14 after being treated for urinary tract infection with IV ceftriaxone for 3 days. Patient was admitted to telemetry floor and we managed her for the following conditions. Altered mental status The patient on presentation was reported to be unresponsive. Initially it was thought that this can be due to benzodiazepines which the patient has been taken. Through [facility] it seems the patient has been on benzodiazepines for a long time. On presentation the urine toxicology was negative for benzodiazepines. Patient should not be on more than twice a day as needed doses of benzodiazepines given that she has been on the medication for a long time and acute withdrawal can result into benzodiazepine withdrawal syndrome. We have reduced the Lorazepam dose to 0.25mg bid prn Dehydration Presentation the patient had elevated BUN of around 30 with normal creatinine levels. She received gentle hydration. This patient needs continuous encouragement to increase oral intake so that can avoid dehydration in the future. History of hypothyroidism/hypertension/hyperlipidemia Patient was kept on her home dose of medication for these chronic conditions maintained on lisinopril 10 mg daily, levothyroxine 0.1 mg daily. She remained hemodynamically stable and is being discharged to continue with those medications at home. Her dose of Levothyroxine was recently increased, repeat TSH in 4 weeks Complications: None Allergies: Coded Allergies: adhesive (SKIN RASH 05/25/17) oxycodone (From PERCOCET) (FEELS FUNNY 05/25/17) Significant Procedures: None Pertinent Lab Results: Laboratory Tests 11/10 11/09 0751 0629 Chemistry Sodium (137 - 145 mmol/L) 141 140 Potassium (3.5 - 5.1 mmol/L) 4.2 4.1 Chloride (98 - 107 mmol/L) 103 105 Carbon Dioxide (22 - 30 mmol/L) 34 H 32 H Anion Gap (5 - 16) 4 L 3 L BUN (7 - 17 mg/dL) 20 H 22 H Creatinine (0.5 - 1.0 mg/dL) 0.7 0.6 Estimated GFR (>60 ml/min) > 60 > 60 BUN/Creatinine Ratio (7 - 25 %) 28.6 H 36.7 H Total Bilirubin (0.2 - 1.3 mg/dL) 0.3 0.4 Direct Bilirubin (< 0.4 mg/dL) 0.1 0.2 AST (14 - 36 U/L) 37 H 52 H ALT (9 - 52 U/L) 52 65 H Alkaline Phosphatase (<127 U/L) 105 110 Total Protein (6.3 - 8.2 g/dL) 5.5 L 5.7 L Albumin (3.5 - 5.0 g/dL) 3.2 L 3.3 L Hematology CBC w Diff NO MAN DIFF REQ WBC (4.8 - 10.8 /CUMM) 5.8 RBC (4.20 - 5.40 /CUMM) 3.88 L Hgb (12.0 - 16.0 G/DL) 11.4 L Hct (37 - 47 %) 34.2 L MCV (81.0 - 99.0 FL) 88.1 MCH (27.0 - 31.0 PG) 29.4 MCHC (33.0 - 37.0 G/DL) 33.3 RDW (11.5 - 14.5 %) 14.7 H Plt Count (130 - 400 /CUMM) 398 MPV (7.4 - 10.4 FL) 8.3 Gran % (42.2 - 75.2 %) 63.7 Lymphocytes % (20.5 - 51.1 %) 22.6 Monocytes % (1.7 - 9.3 %) 9.0 Eosinophils % (0 - 5 %) 3.9 Basophils % (0.0 - 2.0 %) 0.8 Absolute Granulocytes (1.4 - 6.5 /CUMM) 3.7 Absolute Lymphocytes (1.2 - 3.4 /CUMM) 1.3 Absolute Monocytes (0.10 - 0.60 /CUMM) 0.5 Absolute Eosinophils (0.0 - 0.7 /CUMM) 0.2 Absolute Basophils (0.0 - 0.2 /CUMM) 0 Disposition Summary Disposition Principal Diagnosis: Unwitnessed fall Dehydration Altered mental status, suspect toxic encephalopathy Additional Diagnosis: Hypothyroidism Hypertension Discharge Disposition: SNF Discharge Instructions General Discharge Information Code Status: Do Not Resucitate/Intubat Patient's Diet: Heart health diet Patient's Activity: As tolerated Follow-Up Instructions/Appts: Please call and make a follow-up with food or baggage handling rampman Dr. Ponce for geriatric review and assessment. Please call and make a follow-up with her primary care physician within one week after discharge Medications at Discharge Discharge Medications: Continue taking these medications: Furosemide (Furosemide) 20 MG TABLET 1 Tablet ORAL DAILY Qty = 30 Comments: Last Taken: 11/05/17 Time: 8:00 am Meclizine HCl (Meclizine HCl) 25 MG TABLET 1 Tablet ORAL DAILY Qty = 30 Comments: Last Taken: 11/05/17 Time: 0900 Citalopram Hydrobromide (Citalopram HBr) 20 MG TABLET 1 Tablet ORAL DAILY Qty = 30 Comments: Last Taken: 11/05/17 Time: 8:00 am Polytrim (Polytrim Eye Drops) 10,000 UNIT-1 MG/ML DROPS 1 Drop In the eye EVERY SIX HOURS Qty = 10 Comments: Last Taken: 11/05/17 Time: 1000 Levothyroxine Sodium (Synthroid) 50 MCG TABLET 2 Tablet ORAL DAILY Qty = 30 Comments: Last Taken: 11/05/17 Time: 9:00 AM Lisinopril (Lisinopril) 10 MG TABLET 1 Tablet ORAL DAILY Acetaminophen (Acetaminophen) 500 MG TABLET 2 Tablet ORAL THREE TIMES DAILY Lorazepam (Lorazepam) 0.5 MG TABLET 0.25 Milligram ORAL 2 x Daily as needed as needed for ANXIETY Qty = 30 Comments: NOT GIVEN This prescription has been renewed Copies To: Michell Snyder MD; Lam Burton MD Copies To: Michell Snyder MD; Lam Burton MD
[2017-11-10] MEDS ORDERED: LORAZEPAM0.5 M1 PO (08:59)
[2017-11-10 09:24] LABS: ABSOLUTE BASOPHIL COUNT 0 /CUMM (0.0-0.2); ABSOLUTE EOSINOPHIL COUNT 0.2 /CUMM (0.0-0.7); ABSOLUTE GRANULOCYTE CT 3.7 /CUMM (1.4-6.5); ABSOLUTE LYMPH COUNT 1.3 /CUMM (1.2-3.4); ABSOLUTE MONOCYTE COUNT 0.5 /CUMM (0.10-0.60); BASOPHIL % 0.8 % (0.0-2.0); EOSINOPHIL % 3.9 % (0-5); GRANULOCYTE % 63.7 % (42.2-75.2); HEMATOCRIT 34.2 % (37-47); MEAN CORPUSCULAR HGB 29.4 PG (27.0-31.0); MEAN CORPUSCULAR HGB CONC 33.3 G/DL (33.0-37.0); MEAN CORPUSCULAR VOLUME 88.1 FL (81.0-99.0); MEAN PLATELET VOLUME 8.3 FL (7.4-10.4); PLATELET COUNT 398 /CUMM (130-400); RBC DISTRIBUTION WIDTH 14.7 % (11.5-14.5); RED BLOOD CELL CT 3.88 /CUMM (4.20-5.40); WHITE BLOOD CELL COUNT 5.8 /CUMM (4.8-10.8)
--- NOTE | 2017-11-10 10:15 | Patient Discharge Instructions ---
Discharge Instructions General Discharge Information Special Instructions: - Please follow up with your primary care physician within 1-2 weeks of discharge. Inform your primary care physician of this admission to [facility]. -Please follow up with Dr. Burton for geriatrics consult. Specifically, the patient will need to be evaluated for catatonia. - Continue your current medications per discharge instructions. - Please watch for these problems: Fever, Chills, Nausea, Vomiting, Shortness of Breath, Productive Cough, Chest Pain/Discomfort, Abdominal Pain, Active Bleeding or Bloody urine/stool. Acute Coronary Syndrome Inclusion Criteria At DC or during hospital stay patient has or had the following: ACS DIAGNOSIS No Discharge Core Measures Meds if any: Prescribed or Continued at Discharge Meds if any: NOT Prescribed or Continued at Discharge Congestive Heart Failure Inclusion Criteria At DC or during hospital stay patient has or had the following: CHF DIAGNOSIS No Discharge Core Measures Meds if any: Prescribed or Continued at Discharge Meds if any: NOT Prescribed or Continued at Discharge Cerebrovascular accident Inclusion Criteria At DC or during hospital stay patient has or had the following: CVA/TIA Diagnosis No Discharge Core Measures Meds if any: Prescribed or Continued at Discharge Meds if any: NOT Prescribed or Continued at Discharge Venous thromboembolism Inclusion Criteria VTE Diagnosis No VTE Type NONE VTE Confirmed by (Test) NONE Discharge Core Measures - Per Current guidelines, there needs to be overlap - treatment for the first 5 days of Warfarin therapy. - If discharged on Warfarin prior to 5 days of - overlap therapy, the patient will need to be - assessed for post discharge needs including - *Post discharge parental anticoagulation - *Warfarin and/or parental anticoagulation education - *Follow up date to check INR post discharge At least 5 days overlap therapy as Inpatient No Meds if any: Prescribed or Continued at Discharge Note: Overlap Therapy is Warfarin and Anticoagulant Meds if any: NOT Prescribed or Continued at Discharge
[2017-11-10 13:29] VITALS: BP 178/64
== END 2017-11-10 15:00 ==
LOC: ERH 19:22 → 1NO 22:02 → ERHI 22:02 → 1NO 22:02 → EDBEDREQ 22:12 → ENRESERV 22:35 → ENTRNSPT 22:48 → 1NO 22:55 → CMPTRNSPT 23:06 → 1NO 11-10 07:27 → ENPENDDIS 11-10 10:17 → 1NO 11-10 10:40
PROVIDERS: Pediatrics; Student in an Organized Health Care Education/Training Program
DX: R41.82 Altered mental status, unspecified (principal); I11.0 Hypertensive heart disease with heart failure; I50.22 Chronic systolic (congestive) heart failure; E78.5 Hyperlipidemia, unspecified; E03.9 Hypothyroidism, unspecified; R42 Dizziness and giddiness; F32.9 Major depressive disorder, single episode, unspecified; F41.9 Anxiety disorder, unspecified; Z87.440 Personal history of urinary (tract) infections; E86.0 Dehydration; W19.XXXA Unspecified fall, initial encounter; Z79.899 Other long term (current) drug therapy
CPT/HCPCS: 1NP; 36415; 36592; 71045; 80307; 81003; 82436; 87086; 92610-GN; 93005; 93010; 96372; 97162-GP; G0378; G8996-GN; G8997-GN; J1650